=== PATIENT | female | born 1945 | race Caucasian/White ===

== ENCOUNTER → 2016-08-23 20:18 | Outpatient (CLI) | payer MEDICARE | END | disposition home or self-care (01) | LOC: D.LABREF 20:18 | DX: R41.3 Other amnesia (principal) ==

== ENCOUNTER 2017-01-20 15:18 | Emergency (ER) | payer MEDICARE ==
[2017-01-20 16:44] LABS: BASOPHILS 0.4 % (0-2); EOSINOPHILS 0.2 % (0-7); HEMATOCRIT 37.3 % (36.0-48.0); IMMATURE GRANULOCYTES 0.4 % (0-5); LYMPHOCYTES 13.9 % (15-50); MCH 31.6 pg (26.0-34.0); MCHC 34.9 g/dL (31.0-37.0); MCV 90.8 fL (80.0-100.0); MEAN PLATELET VOLUME 9.5 fL (7.4-10.4); MONOCYTES 16.9 % (2-11); NEUTROPHILS 68.2 % (40-80); PLATELET COUNT 108 10x3/uL (130-400); RBC 4.11 10x6/uL (4.00-5.40); RDW 13.2 % (11.5-14.5); WBC 5.3 10x3/uL (4.8-10.8)
[2017-01-20 16:59] LABS: ALBUMIN 3.1 g/dL (3.4-5.0); ANION GAP 8.6 mmol/L (8-16); CALCIUM 8.4 mg/dL (8.5-10.1); CARBON DIOXIDE 30.8 mmol/L (21.0-32.0); CREATININE - SERUM 0.9 mg/dL (0.6-1.3); POTASSIUM - SERUM 3.4 mmol/L (3.5-5.1); PROTEIN - SERUM 7.2 g/dL (6.4-8.2)
[2017-01-20 18:05] LABS: APPEARANCE CLEAR (CLEAR); BACTERIA FEW /hpf (NONE SEEN); BILIRUBIN NEGATIVE (NEGATIVE); COLOR YELLOW (YELLOW); EPITHELIAL CELLS 0-5 /hpf (0-5); GLUCOSE NEGATIVE (NEGATIVE); KETONE NEGATIVE (NEGATIVE); LEUKOCYTE ESTERASE TRACE (NEGATIVE); NITRITE NEGATIVE (NEGATIVE); PROTEIN NEGATIVE (NEGATIVE); RED CELLS - URINE 0-5 /hpf (0-5); UROBILINOGEN NORMAL (NORMAL); WHITE CELLS - URINE 0-5 /hpf (0-5)
[2017-01-21] MEDS ORDERED: INDERAL 40 MG T40 MG PO (05:55)
[2017-01-21] MEDS ORDERED: LIPITOR10 MG PO (05:56)
[2017-01-21] MEDS ORDERED: HYDROCHLOROTH12.5 M1 PO (05:56)
[2017-01-21] MEDS ORDERED: OMEPRAZOLE20 M1 PO (05:57)
[2017-01-21 12:18] VITALS: BMI 25.9
== END 2017-01-20 20:50 | disposition home or self-care (01) ==
LOC: D.ER 15:18
PROVIDERS: Family Medicine
DX: J01.90 Acute sinusitis, unspecified (principal); I10 Essential (primary) hypertension

== ENCOUNTER 2017-01-21 03:42 | Inpatient (IN) | payer MEDICARE ==
[~2017-01-21] VITALS: Ht 167.6 cm; Wt 74.7 kg
--- NOTE | ~2017-01-21 | EC ---
PATIENT:MOHINI AUGUSTIN DATE OF SERVICE: 01/21/17 SEX: F MEDICAL RECORD: [id number] DATE OF : 41 LOCATION:D.M2 D.211 AGE OF PATIENT: 71 ADMISSION DATE: 01/21/17 REFERRING PHYSICIAN: INTERPRETING PHYSICIAN: DAVID CARPENTER MD ECHOCARDIOGRAM REPORT ECHO CHARGES 4 ECHO COMPLETE CLINICAL DIAGNOSIS: CARDIOMEGALLY ECHOCARDIOGRAPHIC MEASUREMENTS (adult normal given) AC root (d.<3.7cm) 24 cm LV Septum d (<1.2 cm> 1.2 cm Valve Excursion 1.1 cm LV Septum (systole) 1.7 cm Left Atria (s.<4.0cm> 3.7 cm LVPW d(<1.2cm) 1.4 cm RV (d.<2.3cm) 3.1 cm LVPW (sytole) 1.8 cm LV diastole(<5.6CM) 3.8 cm MV E-F(>70mm/sec) cm LV systole 2.1 cm LVOT Diameter 1.7 cm MV exc.(>10mm) 1.5 cm Est.ejection fraction (50-75%) % Pericardial Effusion N DOPPLER: LVIT cm/sec A 121 cm/sec E 83 cm/sec LA cm/sec RVSP 28 mmHg LVOT 121 cm/sec AOP1/2T m/s Asc. Ao 159 cm/sec RVOT 105 cm/sec RA cm/sec PA 133 cm/sec AV Gradient Peak 10.06mmHg AV Mean 5.09 mmHg AV Area 1.7 cm MV Gradient Peak 7.26 mmHg MV Mean 3.0 mmHg MV Area cm COMMENTS: Deployment Specialist: Alexander GILL Mobile Application Tester: 2 Dr. Silver TAPE# PACS DATE OF SERVICE: 01/26/2017 FINDINGS: 1. Left ventricular chamber size is within normal limits. Left ventricular systolic function is normal. Overall ejection fraction estimated at 65%. 2. Left atrium, right atrium, and right ventricular chamber sizes are within normal limits. 3. Valvular structures have normal structure and motion. 4. Doppler interrogation reveals mild mitral regurgitation, mild tricuspid regurgitation, no other valvular insufficiency or stenosis and pulmonary ECHOCARDIOGRAM REPORT [id number] MOHINI AUGUSTIN systolic pressure is estimated 28 mmHg. 5. No evidence of pericardial effusion or left ventricular thrombus. TRANSINT:[id number] Voice Confirmation ID: [id number] DOCUMENT ID: [id number] DAVID CARPENTER MD CC: [id number] DICTATION DATE: 01/27/17 1353 RN INVASIVE: 01/27/17 1439 ADM IN [place] [id number] [place] [address]
--- NOTE | ~2017-01-21 | CN ---
PATIENT NAME:MOHINI HARRIS MEDICAL RECORD: [id number] : 41 LOCATION:[facility] D.2112 ADMIT DATE: 01/21/17 ACCOUNT: [id number] CONSULTING PHYSICIAN: PETAR CALIX MD REFERRING PHYSICIAN: CR RENO DO DATE OF CONSULTATION: 01/25/[address] Cr Reno. REASON FOR CONSULTATION: Sinusitis. HISTORY OF PRESENT ILLNESS: Ms. Harris is a 71-year-old female. She is admitted to the hospital several days now with fever and altered mental status. Last week, a CT was obtained, which showed some sinusitis and I was called to evaluate that. PHYSICAL EXAMINATION: GENERAL: She is healthy. She is alert, sitting up, eating, talking, and apparently has improved a lot in the past few days. EARS: Canals and TMs are normal. No middle ear effusion. EYES: Sclerae and conjunctivae are normal. No inflammation. NOSE: I see really well, although nasal mucosa looks perfectly normal inferior meatus, middle meatus, nasal vault, nasopharynx, the patient on the right side where the middle maxillary sinus is infected. There is no drainage at all. ORAL CAVITY AND OROPHARYNX: Normal with no postnasal drainage. NECK: No masses, no adenopathy. NEUROLOGIC: Cranial nerves are normal. DIAGNOSTIC DATA: CT showed opacification of the right maxillary, right sphenoid sinus, and some of the posterior ethmoid sinuses on the left side. IMPRESSION: She does have some opacification in the sinuses from her CT last week. Apparently, she has some pulmonary issues that may be a source of the fever as well. I talked to Dr. Toro. There is no drainage in the nose to obtain culture to help with the treatment, but I was willing to take her to the OR, open up the sinuses, and get cultures, drain everything out, but Dr. Toro felt like fevers are going away, she was getting a lot better, responding to treatment, and that may not be necessary, but we can consider that later if for some reason she is not doing well, sounds like her and her both got sick a few months ago and she just has not completely gone over it. I would be willing to see her as an outpatient or again during this admission if she is not making progress and she needs to go to the OR for sinus surgery. TRANSINT:[id number] Voice Confirmation ID: [id number] DOCUMENT ID: [id number] PETAR CALIX MD CC: [id number] DICTATION DATE: 01/27/17 1250 SPONGE CLIPPER: 01/27/17 1424 ADM IN [place] [id number] [place] [address]
--- NOTE | ~2017-01-21 | CN ---
PATIENT NAME:MOHINI HARRIS MEDICAL RECORD: [id number] : 41 LOCATION:. D.2112 ADMIT DATE: 01/21/17 ACCOUNT: [id number] CONSULTING PHYSICIAN: DACIA ESTEVES MD REFERRING PHYSICIAN: CR RENO DO DATE OF CONSULTATION: 01/25/2017 CONSULT REQUESTING PHYSICIAN: Michelle Roe MD REASON FOR CONSULTATION: Granulomatous disease and febrile illness. HISTORY OF PRESENT ILLNESS: Ms. Harris is a 71-year-old female who is a poor historian. The patient was admitted with mental status changes, fever, and hyponatremia. Now, she is more awake and alert. According to the , they both have bronchitis and respiratory tract infection. He got better, but her cough persisted since then. Now, for the last few days, she has fever. There are no night sweats. There is no weight loss. The patient was brought into the ER and evaluation found out she was hyponatremic. She had a CT scan of the chest which showed granulomatous disease. REVIEW OF SYSTEMS: As in history of present illness. PAST MEDICAL HISTORY: 1. History of childhood asthma. 2. Diabetes mellitus. 3. Hypertension. 4. Generalized weakness. 5. Gastroesophageal reflux disease. 6. History of diarrhea. 7. She also has Crohn disease. PAST SURGICAL HISTORY: 1. Colon resection for Crohn disease. 2. Surgery for carpal tunnel syndrome. 3. Neck surgery. 4. Cataract surgery. ALLERGIES: There are no known drug allergies. PRESENT MEDICATIONS: She is on Rocephin IV and Xopenex nebulizer. Her other medications are reviewed. PERSONAL AND SOCIAL HISTORY: The patient is an ex-smoker. She is nondrinker. FAMILY HISTORY: Noncontributory. PHYSICAL EXAMINATION: GENERAL: Now, the patient is sitting in bed. She is not in acute distress. VITAL SIGNS: The blood pressure is 139/53, pulse is 76, respirations are 18, temperature 98.1, and SpO2 is 95% on room air. HEENT: Conjunctivae are pink. Sclerae are nonicteric. NECK: Neck is supple. No JVD. CHEST: The chest excursion is minimal on both sides with bilateral crackles. No wheezing. HEART: Rhythm regular. Normal sounds. No murmur. CONSULT REPORT [id number] MOHINI HARRIS ABDOMEN: Abdomen is soft. Bowel sounds present. No hepatosplenomegaly. RECTAL: Deferred. EXTREMITIES: No cyanosis. No clubbing. No pedal edema. SKIN: The skin is warm. Normal turgor. CENTRAL NERVOUS SYSTEM: The patient is awake and alert. There are no obvious cranial nerve abnormalities. The gait was not tested. IMAGING DATA: CT scan of the chest; there is bilateral granulomatous disease. There is some noncalcified nodule in the lingula. Also, she has bilateral calcified granuloma in the hilar region. There is cardiomegaly. The liver looks cirrhotic and there is ascites and splenomegaly. LABORATORY DATA: CBC; WBC was 4.4, hemoglobin 12.9, hematocrit 36.5, and platelet count 88. Chemistry; sodium 131, potassium 3.8, BUN is 8, and creatinine 0.7. IMPRESSION: 1. Febrile illness. The etiology is not clear. 2. Granulomatous disease. Rule out fungal processes. Rule out mycobacterial infection, possible sarcoidosis. I would doubt metastatic process. 3. Chronic cough, most likely secondary to asthmatic bronchitis. 4. Acemi-kq-lzdblnd sinusitis. 5. History of asthma. 6. Hyponatremia. RECOMMENDATION: Start on ipratropium nebulizer. Continue the Xopenex nebulizer. Start on Brovana and budesonide nebulizer. We will proceed with fiberoptic bronchoscopy in the morning. The CT scan was discussed with the patient's . Continue the present antibiotic per Dr. Roe. Dr. Roe, thank you for involving me in the care of Ms. Harris. TRANSINT:[id number] Voice Confirmation ID: [id number] DOCUMENT ID: [id number] DACIA ESTEVES MD CC: CR RENO DO and Ania ROE [id number] DICTATION DATE: 01/25/17 1436 PUBLIC SAFETY POLICE: 01/25/17 1742 ADM IN [facility] [address] [place] [address]
[2017-01-21 04:47] LABS: BASOPHILS 0.3 % (0-2); EOSINOPHILS 0 % (0-7); HEMATOCRIT 34.5 % (36.0-48.0); HEMOGLOBIN 12.3 g/dL (12-16); IMMATURE GRANULOCYTES 0.3 % (0-5); LYMPHOCYTES 11.6 % (15-50); MCH 31.6 pg (26.0-34.0); MCHC 35.7 g/dL (31.0-37.0); MEAN PLATELET VOLUME 9.4 fL (7.4-10.4); MONOCYTES 17.7 % (2-11); NEUTROPHILS 70.1 % (40-80); PLATELET COUNT 91 10x3/uL (130-400); RBC 3.89 10x6/uL (4.00-5.40); RDW 12.9 % (11.5-14.5); WBC 6.3 10x3/uL (4.8-10.8)
[2017-01-21 04:57] LABS: MCV 88.7 fL (80.0-100.0)
[2017-01-21 04:59] LABS: ANION GAP 11.6 mmol/L (8-16); CALCIUM 7.3 mg/dL (8.5-10.1); CARBON DIOXIDE 23.8 mmol/L (21.0-32.0); CREATININE - SERUM 0.8 mg/dL (0.6-1.3); POTASSIUM - SERUM 3.4 mmol/L (3.5-5.1)
[2017-01-21 05:51] LABS: PLATELET ESTIMATE DECREASED; PLATELET MORPHOLOGY NORMAL PLT MORPH
[2017-01-21] MEDS ORDERED: INDERAL 40 MG T40 MG PO (05:55)
[2017-01-21] MEDS ORDERED: HYDROCHLOROTH12.5 M1 PO (05:56)
[2017-01-21] MEDS ORDERED: LIPITOR10 MG PO (05:56)
[2017-01-21] MEDS ORDERED: OMEPRAZOLE20 M1 PO (05:57)
--- NOTE | 2017-01-21 06:00 | NUR ---
RECEIVED FROM ER VIA STRETCHER. ALERT/ORIENTED X 2 TO NAME AND HOSP. FAMILY WITH HER. IV IN L AC WITH NS INFUSING AT 70ML/AR STARTED IN ER. REQUESTED TO BATHROOM TO VOID. ORIENTED TO ROOM AND CALL LIGHT.
[2017-01-21 06:08] VITALS: BP 146/49; BMI 26.1
--- NOTE | 2017-01-21 07:20 | NUR ---
RECIEVED REPORT ON PATIENT, PATIENT IS SLEEPING AT THIS TIME. NAD NOTED AT THIS TIME. IS AT BEDSIDE. BED IS LOW AND LOCKED AT THIS TIME. CALL LIGHT IN REACH. PATIENT HAS A L AC IV WITH NS INFUSING AT 75ML/HR. DENIES ANY NEEDS. CPOC
[2017-01-21 07:51] VITALS: BP 147/47
--- NOTE | 2017-01-21 09:30 | NUR ---
ASSESSMENT DONE. AT BEDSIDE. PATIENT ALERT AND ORIENTED. DENIES ANY NEEDS OR COMPLAINTS AT THIS TIME. CALL LIGHT IN REACH. CPOC
--- NOTE | 2017-01-21 11:00 | NUR ---
SCDS PUT ON PATIENT, AND TOLERATING. CPOC
[2017-01-21 11:34] VITALS: BP 135/49
[2017-01-21 12:18] VITALS: Ht 167.6 cm; Wt 74.7 kg
--- NOTE | 2017-01-21 13:00 | NUR ---
PATIENT EATING LUNCH AT THIS TIME. DENIES ANY NEEDS. FAMILY AT BEDSIDE. CPOC
--- NOTE | 2017-01-21 15:00 | NUR ---
SPOKE WITH DR MAYNARD AND GOT PATIENT HOME MEDICATIONS RESTARTED. WILL GIVE, CPOC
[2017-01-21 16:00] VITALS: BP 139/47
--- NOTE | 2017-01-21 17:45 | NUR ---
PATIENT EATING DINNER AT THIS TIME, FAMILY AT BEDSIDE. PATIENT DENIES ANY NEEDS AT THIS TIME. CPOC
[2017-01-21 20:00] VITALS: BP 150/61
[2017-01-22] VITALS: BP 160/45
--- NOTE | 2017-01-22 01:12 | NUR ---
ASSESSED AT THE THE BEGINNING OF THE SHIFT. PT IS ALERT AND ORIENTED, ABLE TO VERBALIZE NEEDS. HER IS WITH HER AND SHE WAS GIVEN GATORADE FOR DRINKING DUE TO HER SODIUM LEVEL. SHE IS UP WITH ASSIST AND HAS HAD NO COMPLAINTS. THE BED IS LOW, RAISL UP X'S 2 WITH THE CALL LIGHT AT HAND.
[2017-01-22 04:00] VITALS: BP 165/57
[2017-01-22 04:48] LABS: BASOPHILS 0 % (0-2); EOSINOPHILS 0.1 % (0-7); HEMATOCRIT 35.6 % (36.0-48.0); HEMOGLOBIN 12.5 g/dL (12-16); IMMATURE GRANULOCYTES 0.3 % (0-5); LYMPHOCYTES 6.1 % (15-50); MCH 31.2 pg (26.0-34.0); MCHC 35.1 g/dL (31.0-37.0); MCV 88.8 fL (80.0-100.0); MEAN PLATELET VOLUME 9.6 fL (7.4-10.4); MONOCYTES 11.2 % (2-11); NEUTROPHILS 82.3 % (40-80); PLATELET COUNT 107 10x3/uL (130-400); RBC 4.01 10x6/uL (4.00-5.40); RDW 12.9 % (11.5-14.5)
[2017-01-22 04:51] LABS: WBC 9.8 10x3/uL (4.8-10.8)
[2017-01-22 05:07] LABS: CALC OSMOLALITY 265 mosm/kg (275-300); CALCIUM 7.9 mg/dL (8.5-10.1); CARBON DIOXIDE 25.5 mmol/L (21.0-32.0); CHLORIDE - SERUM 99 mmol/L (98-107); CREATININE - SERUM 0.7 mg/dL (0.6-1.3); GLUCOSE 108 mg/dL (74-106); MAGNESIUM - SERUM 1.6 mg/dL (1.8-2.4); PHOSPHOROUS 2.6 mg/dL (2.5-4.9); POTASSIUM - SERUM 3.2 mmol/L (3.5-5.1); SODIUM 133 mmol/L (136-145); UREA NITROGEN 9 mg/dL (7-18); eGFR NON AFRICAN AMERICAN 87 mL/min (90-120)
--- NOTE | 2017-01-22 07:15 | NUR ---
RECIEVED REPORT ON PATIENT, PATIENT IS ALERT AND ORIENTED AT THIS TIME. HAS A L AC IV THAT IS INFUSING WITH NS AT 75ML/HR. PATIENT DENIES ANY NEEDS OR PAIN AT THIS TIME. BED LOW AND LOCKED. AT BEDSIDE. CPOC
[2017-01-22 08:00] VITALS: BP 154/51
--- NOTE | 2017-01-22 09:00 | NUR ---
MORNING MEDICATIONS GIVEN, ASSESSMENT DONE. PATIENT HAD AUDIBLE WHEEZES AT THIS TIME. O2 SAT 97% ON ROOM AIR. EXPIRATORY WHEEZES HEARD IN UPPER LOBES, CLEAR IN LOWER LOBES. WILL CONT TO MONITOR PATIENT. CPOC
--- NOTE | 2017-01-22 10:50 | NUR ---
CALLED TO PATIENT ROOM, PATIENT THROWING UP, FLUSHED, AND WARM TO TOUCH. CLEANED PATIENT UP. CHECKED PATIENT TEMP. 102.8 ORAL. WILL GIVE TYLENOL. COLD RAGS APPLIED. PATIENT IS ALSO WHEEZING WORSE. O2 SAT 98%. PAGED DR MAYNARD. CPOC
--- NOTE | 2017-01-22 11:10 | NUR ---
SPOKE WITH DR MAYNARD. ORDERS GIVEN VIA TELEPHONE. STATED HE WOULD BE HERE THIS AFTERNOON. CPOC
[2017-01-22 12:00] VITALS: BP 163/49
--- NOTE | 2017-01-22 12:00 | NUR ---
PATIENT TEMP BACK DOWN TO 98.2. FAMILY AT BEDSIDE. PATIENT DENIES ANY NEEDS OR PAIN. CPOC
--- NOTE | 2017-01-22 13:15 | NUR ---
MAG AND POTASSIUM GIVEN PER PROTOCOL. CPOC
--- NOTE | 2017-01-22 13:38 | HP ---
PATIENT: MOHINI AUGUSTIN MEDICAL RECORD: [id number] ACCOUNT: [id number] LOCATION:[address] : 41 ADMISSION DATE: 01/21/17 HISTORY AND PHYSICAL EXAMINATION HISTORY OF PRESENT ILLNESS: A 71-year-old female presented to the Emergency Room with altered mental status. PAST MEDICAL HISTORY: Significant for hypertension. She also has a history of hyponatremia. She has had been treated as an outpatient for sinus infection with multiple antibiotics. She was seen in the ER yesterday, put on steroids and antibiotics, symptoms worsened and returned to the ER. CT showed extensive sinusitis and lab work revealed low sodium. The patient was incontinent of urine, unable to walk; no prior history of this. Again, she does have a prior history of hyponatremia. REVIEW OF SYSTEMS: GENERAL: No acute change in weight. HEENT: Sinus pain and pressure, episodic fever and chills over the past several days. No visual changes, tinnitus, epistaxis or dysphagia. CARDIOVASCULAR: Denies chest pain or palpitations. PULMONARY: Denies hemoptysis. Denies night sweats. GASTROINTESTINAL: Denies hematemesis, hematochezia or melena. GENITOURINARY: Recent episode of urinary incontinence. MUSCULOSKELETAL AND NEUROLOGICAL: Unsteady gait. PHYSICAL EXAMINATION: VITAL SIGNS: Temp 98.2, blood pressure is 135/49, heart rate is 71, respirations 18 and O2 sats 97% on room air. Temp on admission to the ER was 101.4. GENERAL: Alert and oriented. The patient significantly improved since receiving IV normal saline. HEENT: Head is normocephalic, atraumatic. Eyes: Pupils are equally round and reactive to light and accommodation. Extraocular muscles intact. Conjunctiva was not injected. Ears: Canals patent. Nose: Nares patent. Throat: No erythema, no exudates. Does have sinus tenderness. NECK: Supple. No lymphadenopathy. HEART: Regular rate and rhythm. No S3 or S4, no rub. LUNGS: Clear to auscultation bilaterally. Breathing is nonlabored. ABDOMEN: Soft, nontender. Bowel sounds all 4 quadrants. EXTREMITIES: Present times 4, no edema. NEUROLOGIC: No present focal deficits. LABORATORY DATA: CBC: White count 6.3, hemoglobin 12.3, hematocrit 34.5 and platelets 91. Chemistry showed sodium of 125, potassium 3.4, chloride 93, bicarb 23.8, creatinine 0.8. Urine osmolarity is low at 251, calcium 7.3. Blood cultures, pending. Urine culture, pending. ASSESSMENT AND PLAN: 1. Hyponatremia with acute mental status change, replaced with normal saline. We will restrict free water. Encourage Gatorade, salt. 2. Sinusitis, antibiotics. We will monitor electrolytes. 3. Monitor gait. TRANSINT:[id number] Voice Confirmation ID: [id number] DOCUMENT ID: [id number] HISTORY AND PHYSICAL [id number] MOHINI AUGUSTIN, STACIE ALEMAN at 1338 CC: [id number] DICTATION DATE: 01/21/17 1252 AER[address] PILOT: 01/21/[address] [facility] [address] [place] [address]
--- NOTE | 2017-01-22 15:15 | NUR ---
PATIENT GONE FOR MRI
--- NOTE | 2017-01-22 15:41 | NUR ---
PATIENT BACK FROM MRI
[2017-01-22 16:00] VITALS: BP 174/60
--- NOTE | 2017-01-22 17:30 | NUR ---
PATIENT SITTING UP IN BED, EATING DINNER, FAMILY AT BEDSIDE. DENIES ANY NEEDS. CPOC
[2017-01-22 20:00] VITALS: BP 188/60
--- NOTE | 2017-01-22 22:02 | NUR ---
BEDTIME MEDS GIVEN. TYLENOL FOR TEMP 102. PT NOW RESTING IN BED. BOTH AND DAUGHTER IN ROOM. IVF CAPPED FOR THE TIME BEING. WILL MONITOR.
[2017-01-23] VITALS: BP 158/57
--- NOTE | 2017-01-23 02:36 | NUR ---
PT RESTING IN BED WITH NO DISTRESS. CALL LIGHT IN REACH. MONITOR AND CPOC.
[2017-01-23 03:50] LABS: BASOPHILS 0.7 % (0-2); EOSINOPHILS 0 % (0-7); HEMATOCRIT 36.5 % (36.0-48.0); HEMOGLOBIN 12.9 g/dL (12-16); IMMATURE GRANULOCYTES 0.5 % (0-5); LYMPHOCYTES 17.6 % (15-50); MCH 31.5 pg (26.0-34.0); MCHC 35.3 g/dL (31.0-37.0); MCV 89.2 fL (80.0-100.0); MONOCYTES 15.3 % (2-11); NEUTROPHILS 65.9 % (40-80); PLATELET COUNT 88 10x3/uL (130-400); RBC 4.09 10x6/uL (4.00-5.40); RDW 13.3 % (11.5-14.5)
[2017-01-23 03:54] LABS: WBC 4.4 10x3/uL (4.8-10.8)
[2017-01-23 04:00] VITALS: BP 188/61
[2017-01-23 04:24] LABS: C-REACTIVE PROTEIN 2.4 mg/dL (0.0-0.9); CALC OSMOLALITY 258 mosm/kg (275-300); CALCIUM 7.7 mg/dL (8.5-10.1); CARBON DIOXIDE 28.3 mmol/L (21.0-32.0); CHLORIDE - SERUM 94 mmol/L (98-107); CKMB 0.8 U/L (0.0-3.6); GLUCOSE 101 mg/dL (74-106); MAGNESIUM - SERUM 1.4 mg/dL (1.8-2.4); PHOSPHOROUS 2.8 mg/dL (2.5-4.9); POTASSIUM - SERUM 3.1 mmol/L (3.5-5.1); SODIUM 130 mmol/L (136-145); TROPONIN-I 0.052 ng/mL (0.000-0.060); UREA NITROGEN 8 mg/dL (7-18); eGFR NON AFRICAN AMERICAN 65 mL/min (90-120)
[2017-01-23 04:33] LABS: CREATININE - SERUM 0.9 mg/dL (0.6-1.3)
--- NOTE | 2017-01-23 07:15 | NUR ---
RECIEVED REPORT ON PATIENT, PATIENT IS ALERT AND ORIENTED AT THIS TIME. PATIENT HAS A L AC IV THAT IS INFUSING WITH NS AT 75ML/HR. DR RENO AT BEDSIDE. PATIENT FAMILY AT BEDSIDE. PATIENT DENIES ANY NEEDS OR COMPLAINTS AT THIS TIME. WILL CONT TO MONITOR PATIENT. CPOC
[2017-01-23 08:00] VITALS: BP 174/60
--- NOTE | 2017-01-23 10:30 | NUR ---
PATIENT ON ELCTROLYTE PROTOCOL FOLLOWED MEDS GIVEN PER PROTOCOL. CPOC
--- NOTE | 2017-01-23 12:41 | NUR ---
PATIENT SITTING UP EATING LUNCH AT THIS TIME. PATIENT DENIES ANY NEEDS. WILL CONT TO MONITOR. CPOC
--- NOTE | 2017-01-23 14:00 | NUR ---
PATIENT IV IN L AC INFILTRATED. DC WITH CATH TIP INTACT. 22 G STARTED TO R FA, 1 ATTEMPT. IV INFUSING WITH NS 20MEQ OF KCL AT 100ML/HR
[2017-01-23 16:00] VITALS: BP 176/62
--- NOTE | 2017-01-23 16:00 | NUR ---
PATIENT IS WHEEZING AT THIS TIME, O2 SAT 95% INFORMED REPIRATORY. CPOC
--- NOTE | 2017-01-23 17:16 | NUR ---
PATIENT SITTING UP IN CHAIR, EATING DINNER. DENIES ANY NEEDS AT THIS TIME. CPOC
[2017-01-23 19:00] VITALS: BP 158/56
--- NOTE | 2017-01-23 19:42 | NUR ---
PT RIGHT FOREARM IV LEAKING. CHANGED DRSG AND FIXED LEAK. PT IV NOW PATENT. DRSG CDI. PT DENEIS ANY NEEDS. NO S/S OF DISTRESS. FAMILY IN ROOM. BED LOW AND CALL LIGHT WITHIN REACH WILL CPOC
[2017-01-23 20:34] LABS: APPEARANCE CLEAR (CLEAR); BILIRUBIN NEGATIVE (NEGATIVE); COLOR YELLOW (YELLOW); GLUCOSE NEGATIVE (NEGATIVE); KETONE NEGATIVE (NEGATIVE); LEUKOCYTE ESTERASE NEGATIVE (NEGATIVE); NITRITE NEGATIVE (NEGATIVE); PROTEIN NEGATIVE (NEGATIVE); UROBILINOGEN NORMAL (NORMAL)
[2017-01-23 20:35] LABS: RED CELLS - URINE 0-5 /hpf (0-5); WHITE CELLS - URINE OCC /hpf (0-5)
--- NOTE | 2017-01-23 22:00 | NUR ---
PT HAS A FEVER OF 103 ORAL. WILL GIVE TYLENOL ORDERED. WILL RECHECK AND PUT NOTE. PT DENIES ANY NEEDS. WILL CPOC
--- NOTE | 2017-01-23 22:24 | NUR ---
IN ROOM. PT UP TO RESTROOM WITH ASSISTANCE. PT DENIES ANY NEEDS. NO S/S OF DISTRESS. WILL CPOC
--- NOTE | 2017-01-23 22:38 | NUR ---
PT TEMP NOW 100.4. PT WANTING TO SLEEP. BED LOW AND CALL LIGHT WITHIN REACH. BED ALARM ON AND IN ROOM. PT DENIES ANY NEEDS. NO S/S OF DISTRESS. WILL CPOC
[2017-01-24] VITALS: BP 123/55
[2017-01-24 04:00] VITALS: BP 198/81
[2017-01-24 05:04] LABS: BASOPHILS 0.7 % (0-2); EOSINOPHILS 0.2 % (0-7); HEMATOCRIT 39.5 % (36.0-48.0); HEMOGLOBIN 13.9 g/dL (12-16); IMMATURE GRANULOCYTES 0.7 % (0-5); LYMPHOCYTES 21.3 % (15-50); MCHC 35.2 g/dL (31.0-37.0); MCV 88.2 fL (80.0-100.0); MEAN PLATELET VOLUME 11.2 fL (7.4-10.4); MONOCYTES 9.4 % (2-11); NEUTROPHILS 67.7 % (40-80); PLATELET COUNT 72 10x3/uL (130-400); RBC 4.48 10x6/uL (4.00-5.40); RDW 13.4 % (11.5-14.5); WBC 5.9 10x3/uL (4.8-10.8)
--- NOTE | 2017-01-24 05:13 | NUR ---
PT IS RESTLESS. C/O DYSPNEA. RUBBING HER STOMACH SO ZOFRAN PRN IS GIVEN ORDERED. PT HAS IN ROOM. HE ASSIST HER TO RESTROOM. WILL CONTINUE TO MONITOR DYSPNEA AND RESTLESSNESS. PT DENIES ANY NEEDS. NO S/S OF DISTRESS. WILL CPOC
[2017-01-24 05:50] LABS: ALBUMIN 2.9 g/dL (3.4-5.0); ALKALINE PHOSPHATASE 103 U/L (46-116); ALT (SGPT) 40 U/L (10-68); BILIRUBIN - TOTAL 1.29 mg/dL (0.2-1.3); CALC OSMOLALITY 261 mosm/kg (275-300); CALCIUM 7.7 mg/dL (8.5-10.1); CHLORIDE - SERUM 97 mmol/L (98-107); CREATININE - SERUM 0.7 mg/dL (0.6-1.3); GLUCOSE 87 mg/dL (74-106); POTASSIUM - SERUM 3.8 mmol/L (3.5-5.1); PROTEIN - SERUM 7.1 g/dL (6.4-8.2); SODIUM 132 mmol/L (136-145); THYROID STIMULATING HORMONE 0.82 uIU/mL (0.36-3.74); UREA NITROGEN 6 mg/dL (7-18); eGFR NON AFRICAN AMERICAN 87 mL/min (90-120)
--- NOTE | 2017-01-24 07:50 | NUR ---
PT TO CHEST XRAY VIA WHEELCHAIR.
--- NOTE | 2017-01-24 07:55 | NUR ---
0715- AM ROUNDING- RECIEVED REPORT FROM SUPERVISOR GRAIN [employer] YEAST [employer]ANTS NURSE SHARLENE. PT IS CURRENTLY SITTINTG IN CHAIR AT BEDSIDE. IS AT BEDSIDE. ON 02 AT 1L VIA NC. NO MONITOR (ZOFIA IN TELEMETRY IS AWARE OF NEEDING HEART MONITOR AND STATES SHE WILL GET PT ONE ONCE HEART MONITOR IS AVAILABLE DUE TO ONE BEING LEFT AND SAVING FOR PCU BED). IV SEEN TO RIGHT FOREARM WITH NS WITH 20K+ RUNNING AT 100CC. NO NEED AT CURRENT TIME. WILL CONTINUE TO MONITOR AND CONTINUE WITH PLAN OF CARE.
[2017-01-24 08:00] VITALS: BP 147/61
--- NOTE | 2017-01-24 08:03 | NUR ---
PT BACK FROM [facility] VIA WHEELCHAIR.
--- NOTE | 2017-01-24 09:05 | NUR ---
Patient Name: MOHINI AUGUSTIN Admission Status: ER Accout number: [id number] Admission Date: 01-21-2017 : 1945 Admission Diagnosis: Attending: Nixon Reno Current LOS: 3 Anticipated DC Date: Planned Disposition: Home Primary Insurance: [facility] LATE ENTRY FROM 01-23-17, 1600 HOURS. Discharge Planning Comments: * Is the patient Alert and Oriented? Yes 0 * How many steps to enter\exit or inside your home? 3 0 * PCP DR. RENO 0 * Pharmacy [facility] 0 * Preadmission Environment Home with Family 0 * ADLs Independent 0 * Equipment None 0 * Other Equipment NO MEDICAL EQUIPMENT PROVIDER PREFERENCE 0 * List name and contact numbers for known caregivers / representatives who currently or will assist patient after discharge: TONY AUGUSTIN, SPOUSE, 0 * Community resources currently utilized None 0 * Please name any agencies selected above. NONE 0 * Additional services required to return to the preadmission environment? No 0 * Can the patient safely return to the preadmission environment? Yes 0 * Has this patient been hospitalized within the prior 30 days at any hospital? No 0 CM RECEIVED ORDER FOR INPATIENT REHAB PRESCREENING. CM MET WITH PT AND SPOUSE IN ROOM TO DISCUSS DISCHARGE PLANNING AND NEEDS. PT REPORTS LIVING AT HOME INDEPENDENTLY WITH HER SPOUSE. PT HAS NO MEDICAL EQUIPMENT AND NO OUTSIDE SERVICES ASSISTING IN THE HOME. PT'S SPOUSE REPORTS IF PT NEEDS HELP, SHE HAS HE AND THEIR ADULT DAUGHTER TO ASSIST AT HOME. CM DISCUSSED AVAILABILITY OF HOME HEALTH, REHAB SERVICES AND MEDICAL EQUIPMENT. PT 'S SPOUSE DENIES REHAB NEED AT THIS TIME, HE FEELS THAT PT WILL BE FINE TO GO HOME; PT'S SPOUSE WOULD CONSIDER INPATIENT REHAB AT [facility] ONLY IF PT WAS NOT ABLE TO GO HOME; PT'S SPOUSE WOULD CONSIDER HOME HEALTH IF NEEDED WHEN PT GOES HOME, BUT SPOUSE THINKS THAT ONCE THE INFECTION IS CLEARED, PT WILL BE OK TO DISCHARGE HOME WITH HIS ASSISTANCE. PT'S SPOUSE DENIES DISCHARGE NEEDS AT THIS TIME, REPORTS HE WILL PICK PT UP FOR DISCHARGE HOME. PT'S SPOUSE PLANS TO TAKE PT HOME AT DISCHARGE, DENIES NEEDS AT THIS TIME; PT'S SPOUSE DOES NOT THINK PT WILL REQUIRE INPATIENT REHAB OR HOME HEALTH SERVICES.. Supply Teacher: Geremias Diego
[2017-01-24 11:56] VITALS: BP 102/42
[2017-01-24 16:00] VITALS: BP 125/47
--- NOTE | 2017-01-24 18:38 | NUR ---
PT IS CURRENTLY SITTING IN CHAIR AT BEDSIDE. FAMILY MEMBERS ARE AT BEDSIDE. DR. ROE IS IN ROOM NOW WITH PT. NO NEED AT THIS CURRENT TIME. WILL CONTINUE TO MONITOR.
[2017-01-24 20:00] VITALS: BP 129/66
--- NOTE | 2017-01-24 21:21 | NUR ---
PT C/O ACID REFLUX. PT STATES NO NEED TO CALL DOCTOR TONIGHT.. I WILL PASS IN REPORT FOR IN THE MORNING. PT STANDING INFRONT OF SINK. BRUSING TEETH AND CLEANING AREA. PT IS BALANCING WELL. PT DENIES ANY NEEDS. IN ROOM. IV INFUSING NS 20 MEQ KCL AT 100. SLIP FREE SOCKS ON. WILL CPOC
--- NOTE | 2017-01-24 22:20 | NUR ---
PT TEMP IS 100.2 AXILLARY. PT UP TO RESTROOM WITH ASSIST. DENIES ANY NEEDS. WILL CONTINUE TO MONITOR TEMP. NO S/S OF DISTRESS. WILL CPOC
--- NOTE | 2017-01-24 23:31 | NUR ---
PT TEMP IS 98.7 AXILLARY. PT UP TO RESTROOM AGAIN WITH LOOSE STOOL. PT DENIES ANY NEEDS.NO S/S OF DISTRESS. WILL CPOC
[2017-01-25] VITALS: BP 150/46
--- NOTE | 2017-01-25 03:49 | NUR ---
PT SITTING UP IN CHAIR. IN ROOM. PT LOOKING THROUGH PURSE FOR TUMS. PT DENIES ANY NEEDS. NO S/S OF DISTRESS. WILL CPOC
[2017-01-25 04:00] VITALS: BP 137/45
[2017-01-25 04:33] LABS: BASOPHILS 0.6 % (0-2); EOSINOPHILS 0.6 % (0-7); HEMATOCRIT 34.3 % (36.0-48.0); HEMOGLOBIN 12.6 g/dL (12-16); IMMATURE GRANULOCYTES 0.4 % (0-5); MCH 32.2 pg (26.0-34.0); MCHC 36.7 g/dL (31.0-37.0); MCV 87.7 fL (80.0-100.0); MONOCYTES 13.1 % (2-11); NEUTROPHILS 68.3 % (40-80); RBC 3.91 10x6/uL (4.00-5.40); RDW 13.7 % (11.5-14.5); WBC 5.3 10x3/uL (4.8-10.8)
[2017-01-25 04:45] LABS: PLATELET COUNT 92 10x3/uL (130-400)
[2017-01-25 05:28] LABS: ALBUMIN 2.3 g/dL (3.4-5.0); ALKALINE PHOSPHATASE 101 U/L (46-116); BILIRUBIN - TOTAL 0.84 mg/dL (0.2-1.3); C-REACTIVE PROTEIN 3.2 mg/dL (0.0-0.9); CALC OSMOLALITY 261 mosm/kg (275-300); CALCIUM 7.6 mg/dL (8.5-10.1); CARBON DIOXIDE 21.9 mmol/L (21.0-32.0); CHLORIDE - SERUM 101 mmol/L (98-107); CREATININE - SERUM 0.7 mg/dL (0.6-1.3); GLUCOSE 110 mg/dL (74-106); POTASSIUM - SERUM 3.8 mmol/L (3.5-5.1); PROTEIN - SERUM 6.2 g/dL (6.4-8.2); SODIUM 131 mmol/L (136-145); eGFR NON AFRICAN AMERICAN 87 mL/min (90-120)
[2017-01-25 05:45] LABS: ALT (SGPT) 40 U/L (10-68); UREA NITROGEN 8 mg/dL (7-18)
[2017-01-25 05:51] LABS: ERYTHROCYTE SEDIMENTATION RATE 9 mm/hr (0-30)
--- NOTE | 2017-01-25 06:42 | NUR ---
PT SITTING UP IN CHAIR, EYES CLOSED RESTING. IN BED RESTING. PT DENIES ANY NEEDS. NO S/S OF DISTESS. STATES SHE IS READY TO GO HOME. WILL CPOC
--- NOTE | 2017-01-25 08:39 | NUR ---
PER FLOWSHEET, PATIENT HAS HAD 2 LOOSE STOOLS THIS AM. I ASKED MARLIN ARROYO AND BLAYNE DON TO PLEASE COLLECT THIS ON NEXT STOOL.
[2017-01-25 09:19] VITALS: BP 139/52
--- NOTE | 2017-01-25 12:05 | NUR ---
0715- AM ROUNDING- RECEIVED REPORT FROM ELECTRICAL AUTOMATION ENGINEER NURSE SHARLENE. PT IS CURRNETLY SITTING UP IN CHAIR WITH EYES OPEN RESTING. IS AT BEDSIDE. ON ROOM AIR. ON MONITOR SHOWING SR, HR 74. IV SEEN TO RIGHT FOREARM WITH NS WITH 20K+ RUNNING AT 100CC. NO NEED AT THIS CURRENT TIME. WILL CONTINUE TO MONITOR AND CONTINUE WITH PLAN OF CARE.
[2017-01-25 12:09] VITALS: BP 139/53
[2017-01-25 14:54] VITALS: BP 161/61
[2017-01-25 15:53] LABS: BASOPHILS 0.8 % (0-2); EOSINOPHILS 0.6 % (0-7); HEMATOCRIT 36.1 % (36.0-48.0); HEMOGLOBIN 12.7 g/dL (12-16); IMMATURE GRANULOCYTES 0.3 % (0-5); LYMPHOCYTES 18.3 % (15-50); MCH 30.9 pg (26.0-34.0); MCHC 35.2 g/dL (31.0-37.0); MCV 87.8 fL (80.0-100.0); MEAN PLATELET VOLUME 10.6 fL (7.4-10.4); MONOCYTES 8.4 % (2-11); NEUTROPHILS 71.6 % (40-80); PLATELET COUNT 96 10x3/uL (130-400); RBC 4.11 10x6/uL (4.00-5.40); RDW 13.8 % (11.5-14.5); WBC 6.5 10x3/uL (4.8-10.8)
[2017-01-25 16:09] LABS: INR 1.16 (0.85-1.17); PROTIME 14.7 SECONDS (11.6-15.0)
[2017-01-25 16:10] LABS: APTT 38.1 SECONDS (22.8-39.4)
--- NOTE | 2017-01-25 17:06 | NUR ---
CONSENTS FOR PROCEDURE SIGNED BY PT AND PLACED IN CHART. PT INSTRUCTED TO NOT EAT OR DRINK ANYTHING AFTER MIDNIGHT TONIGHT. PT AGREES. NPO SIGN PLACED ON PTS DOOR. PT IS CURRENTLY SITTING UP IN CHAIR AT SIDE OF BED. IS AT BEDSIDE. PT DENIES ANY NEED AT THIS CURRENT TIME. WILL CONTINUE TO MONITOR AND CONTINUE WITH PLAN OF CARE.
--- NOTE | 2017-01-25 18:28 | NUR ---
PT IS CURRENTLY SITTING UP IN CHAIR AT BEDSIDE. IS AT BEDSIDE. PT DENIES ANY NEED AT THIS TIME. PT APPEARS WORRIED ABOUT PROCEDURE TOMORROW. CONSENTS ARE SIGNED AND IN CHART. PT IS AWARE TO BE NPO (NOTHING BY MOUTH) AFTER MIDNIGHT. WILL CONTINUE TO MONITOR.
[2017-01-25 19:00] VITALS: BP 116/55
--- NOTE | 2017-01-25 19:23 | NUR ---
PT SITTING IN CHAIR. NS WITH 20 MEQ OF KCL. TO RIGHT FOREARM. PT DENIES ANY NEEDS. NO S/S OF DISTRESS. AT BEDSIDE. WILL CPOC
--- NOTE | 2017-01-25 20:31 | NUR ---
PT SITTING IN CHAIR RECEIVING BREATHING TREATMENT. PT HAS NO S/S OF DISTRESS. NS WITH 20 MEQ KCL INFUSING AT 100 TO RIGHT FOREARM IV. IN ROOM. PT DENIES ANY NEEDS. NO S/S OF DISTRESS. WILL CPOC
[2017-01-26] VITALS (7 sets, daily range): BP systolic 117–147; BP diastolic 45–58
[2017-01-26 04:22] LABS: BASOPHILS 1.4 % (0-2); EOSINOPHILS 1.2 % (0-7); HEMATOCRIT 34.3 % (36.0-48.0); HEMOGLOBIN 12.2 g/dL (12-16); IMMATURE GRANULOCYTES 0.2 % (0-5); LYMPHOCYTES 31.1 % (15-50); MCH 31.1 pg (26.0-34.0); MCHC 35.6 g/dL (31.0-37.0); MCV 87.5 fL (80.0-100.0); MEAN PLATELET VOLUME 10.4 fL (7.4-10.4); NEUTROPHILS 52.1 % (40-80); PLATELET COUNT 110 10x3/uL (130-400); RBC 3.92 10x6/uL (4.00-5.40); WBC 5.8 10x3/uL (4.8-10.8)
[2017-01-26 04:43] LABS: ALBUMIN 2.3 g/dL (3.4-5.0); ALKALINE PHOSPHATASE 113 U/L (46-116); ALT (SGPT) 46 U/L (10-68); BILIRUBIN - TOTAL 1.17 mg/dL (0.2-1.3); CALC OSMOLALITY 260 mosm/kg (275-300); CALCIUM 7.8 mg/dL (8.5-10.1); CARBON DIOXIDE 24.2 mmol/L (21.0-32.0); CHLORIDE - SERUM 101 mmol/L (98-107); CREATININE - SERUM 0.6 mg/dL (0.6-1.3); GLUCOSE 85 mg/dL (74-106); POTASSIUM - SERUM 3.9 mmol/L (3.5-5.1); PROTEIN - SERUM 6.3 g/dL (6.4-8.2); SODIUM 132 mmol/L (136-145); eGFR NON AFRICAN AMERICAN > 90 mL/min (90-120)
[2017-01-26 04:46] LABS: UREA NITROGEN 4 mg/dL (7-18)
--- NOTE | 2017-01-26 07:15 | NUR ---
RECIEVED REPORT ON PATIENT, PATIENT IS ALERT AND ORIENTED AT THIS TIME. PATIENT HAS A R FA IV WITH NS 20MEQ OF KCL INFUSING AT 100ML/HR. PATIENT IS SR ON MONITOR WITH A RATE OF 86. PATIENT FAMILY IS AT BEDSIDE. PATIENT DENIES ANY NEEDS AT THIS TIME. WILL CONT TO MONITOR PATIENT. CPOC
[2017-01-26 08:20] LABS: IMMUNOGLOBULIN E 255 IU/mL (0-100)
--- NOTE | 2017-01-26 09:15 | NUR ---
MORNING MEDS HELD DUE TO PATIENT BEING NPO AND GOING TO BRONCHOSCOPY. WILL MONITOR PATIENT. CPOC
--- NOTE | 2017-01-26 10:06 | NUR ---
PATIENT PREOP AND READY FOR BRONCH. RESPIRATORY HERE FOR CORPORATE COMPLIANCE DIRECTOR
--- NOTE | 2017-01-26 11:15 | NUR ---
PATIENT BACK FROM PROCEDURE. PATIENT IS RESTING. VS STABLE. FAMILY AT BEDSIDE. CPOC
[2017-01-26 11:18] LABS: IMMUNOGLOBULIN A 554 mg/dL (64-422); IMMUNOGLOBULIN G 1374 mg/dL (700-1600); IMMUNOGLOBULIN M 240 mg/dL (26-217)
[2017-01-26 12:16] LABS: ANA REFLEX - DIRECT Negative (Negative)
--- NOTE | 2017-01-26 13:15 | NUR ---
Nutrition Follow Up: Chart reviewed. Pt is eating 81% meal avg on a regular diet. +BM 01/26/17. Meds and labs reviewed. Pt continues at low nutritional risk. Rec continue current diet. RD following.
--- NOTE | 2017-01-26 14:47 | NUR ---
PATIENT SITTING UP IN BED, STILL DROWSY FROM PROCEDURE. VS STABLE. FAMILY AT BEDSIDE. CPOC
--- NOTE | 2017-01-26 17:43 | NUR ---
PATIENT SITTING UP IN CHAIR, EATING DINNER. FAMILY AT BEDSIDE. PATIENT DENIES ANY NEEDS. CPOC
--- NOTE | 2017-01-26 19:15 | NUR ---
Received patient in bed resting with daughter, brother and [id number] at bedside. Currently patient is alert and oriented x 4, reportedly has had periods of confusion. Had bronchoscopy today, patient states she is still somewhat tired out post procedure and sleepy. Reports no pain, no discomfort, no SOB at this time. PIV in right forearm is infusing NS with 20KCl @100ml/hr. Noted to have a right lower arm hard formed swelling, no redness or warmth to site and is underside of arm not near PIV insertion site. Patient states she has had several lab draws in arms. Remains on 1500 ml daily fluid restriction. Is currently on room air, aware she can use oxygen PRN but denies need for same at this time. Just had a shower so telemetry not hooked up at this time. Will reattach same.
--- NOTE | 2017-01-26 20:30 | NUR ---
Patient complaining of feeling SOB, requesting a Resp Tx. Resp Tech notified of same. Three visitors remain in room with patient.
--- NOTE | 2017-01-26 22:00 | NUR ---
Stool specimen obtained and sent to lab.
--- NOTE | 2017-01-26 22:10 | NUR ---
on unit, other visitors have gone home. will stay with patient overnight in room. Patient reports that Resp Tx helped, reports breathing is improved, no longer SOB. Respirations unlabored on room air. Is resting quietly at this time. IV infusing well.
[2017-01-27] VITALS (11 sets, daily range): BP systolic 132–152; BP diastolic 45–76
--- NOTE | 2017-01-27 02:30 | NUR ---
air control electronics operator on, HR = 85/min, rhythm SR.
--- NOTE | 2017-01-27 03:15 | NUR ---
Eyes closed, respirations unlabored, sleeping with HOB elevated 45 degrees. remains at bedside. No signs of distress at this time.
--- NOTE | 2017-01-27 04:12 | NUR ---
IVPB antibiotic hung, patients denture (partial plate) lying on patient's chest. Placed same in denture cup in water soaking.
[2017-01-27 04:58] LABS: EOSINOPHILS 1.6 % (0-7); HEMATOCRIT 31.6 % (36.0-48.0); HEMOGLOBIN 11.2 g/dL (12-16); IMMATURE GRANULOCYTES 0.3 % (0-5); LYMPHOCYTES 42.1 % (15-50); MCHC 35.4 g/dL (31.0-37.0); MCV 87.5 fL (80.0-100.0); MEAN PLATELET VOLUME 10.3 fL (7.4-10.4); MONOCYTES 12.4 % (2-11); NEUTROPHILS 42.6 % (40-80); PLATELET COUNT 130 10x3/uL (130-400); RBC 3.61 10x6/uL (4.00-5.40); RDW 14.4 % (11.5-14.5); WBC 6.3 10x3/uL (4.8-10.8)
[2017-01-27 05:10] LABS: INR 1.26 (0.85-1.17); PROTIME 15.7 SECONDS (11.6-15.0)
[2017-01-27 05:32] LABS: % SATURATION 23 % (15-55); IRON 46 ug/dl (35-150); TOTAL IRON BIND CAPACITY 197 ug/dl (260-445); UNSAT IRON BIND CAPACITY 151 ug/dl (150-375)
[2017-01-27 05:42] LABS: ALBUMIN 2.2 g/dL (3.4-5.0); ALKALINE PHOSPHATASE 131 U/L (46-116); ALT (SGPT) 41 U/L (10-68); BILIRUBIN - TOTAL 0.83 mg/dL (0.2-1.3); CALC OSMOLALITY 262 mosm/kg (275-300); CALCIUM 7.7 mg/dL (8.5-10.1); CARBON DIOXIDE 22.2 mmol/L (21.0-32.0); CHLORIDE - SERUM 101 mmol/L (98-107); CREATININE - SERUM 0.6 mg/dL (0.6-1.3); FERRITIN 267 ng/mL (3-244); GLUCOSE 115 mg/dL (74-106); POTASSIUM - SERUM 3.8 mmol/L (3.5-5.1); SODIUM 132 mmol/L (136-145); UREA NITROGEN 5 mg/dL (7-18); eGFR NON AFRICAN AMERICAN > 90 mL/min (90-120)
--- NOTE | 2017-01-27 07:29 | NUR ---
PT IS UP TO BATHROOM WITH WILL CONT TO MONITOR
[2017-01-27 07:33] LABS: MAGNESIUM - SERUM 1.6 mg/dL (1.8-2.4); PHOSPHOROUS 2.7 mg/dL (2.5-4.9)
[2017-01-27 10:19] LABS: HEPATITIS C ANTIBODY 0.1 (0.0-0.9)
[2017-01-27 10:19] LABS: ANGIOTENSIN CONVERTING ENZYME 71 U/L (14-82)
--- NOTE | 2017-01-27 11:10 | NUR ---
PT TO IR FOR PROCEDURE
--- NOTE | 2017-01-27 12:40 | NUR ---
PT LAYING DOWN IN BED VS ARE WNL. IN ROOM FEEDING HER LUNCH. DENIES NEEDS WILL CONT TO MONITOR
--- NOTE | 2017-01-27 13:18 | NUR ---
CALLED TO PT ROOM PT REQUESTS BEDPAN. PT DAUGHTER COMES INTO ROOM. PT ASKS HER "DID YOU CALL THEM??" PT DAUGHTER STATES "NO MOTHER I WENT STRAIGHT DOWNSTAIRS AND TALKED TO THEM IN PERSON!". HELPED PT ON THE BEDPAN AND INSTRUCTED PT TO CALL WHEN READY TO GET OFF OF BEDPAN AND HANDED HER HER CALL LIGHT
--- NOTE | 2017-01-27 13:26 | NUR ---
BOND ANALYST HELPED PT OFF OF BEDPAN. DAUGHTER STILL AT BEDSIDE.
[2017-01-27 15:23] LABS: FUNGUS STAIN Final report (())
--- NOTE | 2017-01-27 18:00 | NUR ---
PT SITTING UP IN BED WATCHING TV DENIES NEEDS
[2017-01-27 19:10] LABS: ACID FAST SMEAR Negative (()); AFB SPECIMEN PROCESSING Concentration (())
--- NOTE | 2017-01-27 19:22 | NUR ---
RECEIVED REPORT, WILL ASSUME CARE OF PT, PT SITTING UP IN BED, DENIES ANY NEEDS, AT BEDSIDE, BED IS LOW, SRX2, CALL LIGHT IN REACH, WILL CONTINUE PLAN OF CARE
[2017-01-28] VITALS: BP 144/52
--- NOTE | 2017-01-28 00:21 | NUR ---
GAVE TYLENOL FOR FEVER 101
--- NOTE | 2017-01-28 02:08 | NUR ---
PT RESTING WELL WITHOUT C/O OR DISTRESS NOTED. CALL LIGHT WITHIN REACH. WILL CONT TO MONITOR.
[2017-01-28 04:00] VITALS: BP 124/42
[2017-01-28 05:10] LABS: BASOPHILS 0.9 % (0-2); EOSINOPHILS 1.4 % (0-7); HEMATOCRIT 30.6 % (36.0-48.0); HEMOGLOBIN 10.9 g/dL (12-16); IMMATURE GRANULOCYTES 0.1 % (0-5); LYMPHOCYTES 49.2 % (15-50); MCHC 35.6 g/dL (31.0-37.0); MCV 86.9 fL (80.0-100.0); MEAN PLATELET VOLUME 10.6 fL (7.4-10.4); NEUTROPHILS 37.4 % (40-80); PLATELET COUNT 153 10x3/uL (130-400); RBC 3.52 10x6/uL (4.00-5.40); RDW 14.4 % (11.5-14.5)
[2017-01-28 05:27] LABS: ALBUMIN 2.2 g/dL (3.4-5.0); ALKALINE PHOSPHATASE 142 U/L (46-116); ALT (SGPT) 39 U/L (10-68); CALC OSMOLALITY 257 mosm/kg (275-300); CALCIUM 8.1 mg/dL (8.5-10.1); CARBON DIOXIDE 24.1 mmol/L (21.0-32.0); CHLORIDE - SERUM 101 mmol/L (98-107); CREATININE - SERUM 0.7 mg/dL (0.6-1.3); GLUCOSE 101 mg/dL (74-106); MAGNESIUM - SERUM 1.4 mg/dL (1.8-2.4); PHOSPHOROUS 2.9 mg/dL (2.5-4.9); POTASSIUM - SERUM 3.5 mmol/L (3.5-5.1); PROTEIN - SERUM 5.8 g/dL (6.4-8.2); SODIUM 130 mmol/L (136-145); eGFR NON AFRICAN AMERICAN 87 mL/min (90-120)
[2017-01-28 05:30] LABS: UREA NITROGEN 3 mg/dL (7-18)
[2017-01-28 06:13] LABS: ALPHA FETOPROTEIN -(TUMOR MRK) 3.9 ng/mL (0.0-8.3)
--- NOTE | 2017-01-28 07:35 | NUR ---
AM ROUNDING- RECIEVED REPORT FROM TIE HACKER NURSE JOANNA. PT IS CURRENTLY SITTING UP ON SIDE OF BED WITH EYES OPEN RESTING. IS AT BEDSIDE. ON ROOM AIR. ON MONITOR SHOWING CONTROLLED A-FIB, HR 90. IV SEEN TO RIGHT FOREARM WITH NS WITH 20K+ RUNNING AT 100CC. PT IS ON 1,500CC FLUID RESTRICTION. NO NEED AT THIS CURRENT TIME. PTS STATES THEY ARE READY TO GO HOME. WILL CONTINUE TO MONITOR AND CONTINUE WITH PLAN OF CARE.
[2017-01-28 08:21] VITALS: BP 107/57
[2017-01-28] MEDS ORDERED: OS-CAL500 MG PO (10:57)
[2017-01-28] MEDS ORDERED: NORVASC5 MG PO (10:57)
[2017-01-28] MEDS ORDERED: MAG-OX 400 MG400 MG PO (10:58)
[2017-01-28] MEDS ORDERED: PULMICORT0.5 MG/21 UPD (10:58)
[2017-01-28] MEDS ORDERED: THERMOTABS 1 GM1 GM PO (10:59)
[2017-01-28] MEDS ORDERED: IPRAT-ALBUT 0.5-3 ML UPD (10:59)
[2017-01-28 12:19] VITALS: BP 120/50
--- NOTE | 2017-01-28 13:05 | NUR ---
PTS IS AT NURSES STATION ASKING WHEN PT WILL GET TO GO HOME. THIS NURSE INFORMED THAT THE SLOT SUPERVISOR JUST GOT TO UNIT.
--- NOTE | 2017-01-28 13:41 | NUR ---
PT AND PTS ARE UPSET BECAUSE ACCORDING TO DR. PHAM D/C ORDER THAT PT NEEDS TO BE SET UP WITH HOME NEBULIZER AND INHALER AT HOME PRIOR TO BEING D/C. PER CHRISTEN, SURFACE GRINDER TENDER; THE COMPANY THAT WOULD DELIEVER PTS NEBULIZER IS OUT OF [place] AND DIDN'T KNOW HOW LONG IT WOULD TAKE FOR THEM TO BRING SUPPLIES. THIS NURSE PAGED DR. PHAM OFFICE AND RECIEVED IMMEDIATE CALLBACK FROM DR. RENO. DR. RENO INFORMED OF SITUATION. DR. RENO STATES IT IS OKAY FOR SUPPLIES TO BE DELIEVERED TO PTS HOME. CHRISTEN, SURFACE GRINDER TENDER INFORMED OF THIS.
--- NOTE | 2017-01-28 15:57 | NUR ---
D/C INSTRUCTIONS EXPLAINED TO PT AND . D/C PAPERWORK SIGNED BY PT AND PLACED IN CHART. IV TO RIGHT FOREARM REMOVED WITH CATH TIP INTACT. HEART MONITOR REMOVED AND RETURNED TO ZFOIA IN TELEMETRY. PT D/C VIA WHEELCHAIR.
--- NOTE | 2017-01-28 18:32 | NUR ---
Late Entry 1215 Received MD order for procurement of nebulizer and medication. Obtained [employer] contact phone number [phone]. TC to [facility]. Spoke with Holly. Discussed MD orders and contact information for patient and counseling case manager. CM faxed face sheet, MD orders and medication orders. Contact number for patient and CM given. Confirmation of fax received. Holly stated they would call if any questions and regarding delivery. CM went to the bedside to speak with the patient. Spoke with the patient and her , Pasquale. They stated they were not told about the nebulizer. They were wanting to leave. CM discussed MD orders and MD plan. KELLY spoke with the primary nurse, Cassie. She went in to speak with the patient. She called DR Welsh. Cassie advised KELLY that the nebulizer could be delivered to the patient's home. Patient could be discharged to home. 1700 TC to HARMON[facility]. KELLY spoke with Deanna. KELLY following up on nebulizer order. Deanna states the patient was notified Harmony needed a prescription and told to call the doctor's office on Monday. KELLY was not notified of the above. Confirmation of fax had been received. Deanna stated her information stated order had not been received. KELLY refaxed the MD order. Advised Harmony, I should have been notified as they had my contact information from the phone call and fax. Reportedly the fax was not received. Confirmed the fax number and as above refaxed. TC to the patient. KELLY spoke with her daughter Laura Baez. Explained I had followed up with Harmony. Advised I had refaxed the order and would follow up again on Monday.
[2017-01-29 12:08] LABS: SMOOTH MUSCLE ABS (ACTIN) 13 Units (0-19)
[2017-01-30 08:09] LABS: ANA REFLEX - DIRECT Negative (Negative)
[2017-01-30 13:13] LABS: MITOCHONDRIAL ANTIBODY 7.2 Units (0.0-20.0)
--- NOTE | 2017-01-30 13:33 | NUR ---
Rec'd phone call from patient's daughter, Neida. She states patient has not received home nebulizer. She states Harmony has called them and told them they can not process order due to not having a qualifying diagnosis. She requests order be sent to [facility]. I called and spoke with Selbe at Dr. Welsh's office - above explained. Seble states she will talk with Dr. Welsh and if nebulizer is still needed, they will [facility] and [facility] an order. Seble states she will call daughter with status update after she talks with Dr. Welsh. I called Neida and explained above, verbalized understanding. Advised both Neida & Seble to call if I can be of any assistance.
== END 2017-01-28 16:01 | disposition home or self-care (01) | DRG 689 ==
LOC: D.ER 03:42 → OBSVTIME 04:48 → D.M2 04:48
PROVIDERS: Emergency Medicine; Family Medicine; Internal Medicine Pulmonary Disease; ADMIT Family Medicine
PROC: 0BB38ZX Excision of Right Main Bronchus, Via Natural or Artificial Opening Endoscopic, Diagnostic (ICD-10-PCS; 2017-01-26)
PROC: 0BB78ZX Excision of Left Main Bronchus, Via Natural or Artificial Opening Endoscopic, Diagnostic (ICD-10-PCS; principal; 2017-01-26 10:16)
PROC: 0FB23ZX Excision of Left Lobe Liver, Percutaneous Approach, Diagnostic (ICD-10-PCS; 2017-01-27)
DX: N39.0 Urinary tract infection, site not specified (principal); G93.41 Metabolic encephalopathy; E87.1 Hypo-osmolality and hyponatremia; K50.90 Crohn's disease, unspecified, without complications; E87.6 Hypokalemia; R41.0 Disorientation, unspecified; I10 Essential (primary) hypertension; E83.51 Hypocalcemia; R26.9 Unspecified abnormalities of gait and mobility; J01.01 Acute recurrent maxillary sinusitis; J01.31 Acute recurrent sphenoidal sinusitis; J01.21 Acute recurrent ethmoidal sinusitis; I51.7 Cardiomegaly; J84.10 Pulmonary fibrosis, unspecified; Z77.120 Contact with and (suspected) exposure to mold (toxic); K74.60 Unspecified cirrhosis of liver; J45.909 Unspecified asthma, uncomplicated

== ENCOUNTER 2019-01-04 13:35 | Emergency (ER) | payer MEDICARE ==
[~2019-01-04] VITALS: Ht 167.6 cm; Wt 75.5 kg
[~2019-01-04 13:35] MED LIST: HYDROCHLOROTH12.5 M1 PO; INDERAL 40 MG T40 MG PO; IPRAT-ALBUT 0.5-3 ML UPD; LIPITOR10 MG PO; MAG-OX 400 MG400 MG PO; NORVASC5 MG PO; OMEPRAZOLE20 M1 PO; OS-CAL500 MG PO; PULMICORT0.5 MG/21 UPD; THERMOTABS 1 GM1 GM PO
[2019-01-04 13:38] VITALS: Ht 167.6 cm; Wt 75.5 kg
[2019-01-04] MEDS ORDERED: PROBIOTIC250 MG PO (13:43)
[2019-01-04] MEDS ORDERED: NEXIUM20 MG PO (13:44)
[2019-01-04 14:29] LABS: INR 1.39 (0.85-1.17); PROTIME 16.5 SECONDS (11.6-15.0)
[2019-01-04 14:37] LABS: D-DIMER-QUANTITATIVE 9.73 ug/mLFEU (0.20-0.54)
[2019-01-04 14:38] LABS: BASOPHILS 0.8 % (0-2); EOSINOPHILS 4.4 % (0-7); HEMATOCRIT 33.9 % (36.0-48.0); HEMOGLOBIN 11.6 g/dL (12-16); IMMATURE GRANULOCYTES 0.2 % (0-5); LYMPHOCYTES 23.7 % (15-50); MCH 31.2 pg (26.0-34.0); MCHC 34.2 g/dL (31.0-37.0); MCV 91.1 fL (80.0-100.0); MEAN PLATELET VOLUME 10.2 fL (7.4-10.4); MONOCYTES 15.2 % (2-11); NEUTROPHILS 55.7 % (40-80); PLATELET COUNT 149 10x3/uL (130-400); RBC 3.72 10x6/uL (4.00-5.40); RDW 14.5 % (11.5-14.5); WBC 6.6 10x3/uL (4.8-10.8)
[2019-01-04 15:02] LABS: ALBUMIN 2.6 g/dL (3.4-5.0); ALKALINE PHOSPHATASE 127 U/L (46-116); ALT (SGPT) 30 U/L (10-68); BILIRUBIN - TOTAL 2.04 mg/dL (0.2-1.3); CALC OSMOLALITY 269 mosm/kg (275-300); CALCIUM 8.4 mg/dL (8.5-10.1); CARBON DIOXIDE 29.7 mmol/L (21.0-32.0); CHLORIDE - SERUM 101 mmol/L (98-107); CREATININE - SERUM 0.8 mg/dL (0.6-1.3); GLUCOSE 121 mg/dL (74-106); SODIUM 136 mmol/L (136-145); UREA NITROGEN 3 mg/dL (7-18); eGFR NON AFRICAN AMERICAN 74 mL/min (90-120)
[2019-01-04 15:12] LABS: CKMB 0.9 U/L (0.0-3.6); CREATINE KINASE 42 UL (21-215); MAGNESIUM - SERUM 1.8 mg/dL (1.8-2.4); PRO BNP 311 pg/mL (0-450); TROPONIN-I < 0.017 ng/mL (0.000-0.060)
[2019-01-04 16:28] LABS: APPEARANCE CLEAR (CLEAR); BILIRUBIN NEGATIVE (NEGATIVE); COLOR YELLOW (YELLOW); GLUCOSE NEGATIVE (NEGATIVE); KETONE NEGATIVE (NEGATIVE); NITRITE NEGATIVE (NEGATIVE); PROTEIN NEGATIVE (NEGATIVE); UROBILINOGEN NORMAL (NORMAL)
[2019-01-04 16:40] LABS: BACTERIA FEW /hpf (NONE SEEN); RED CELLS - URINE OCC /hpf (0-5); WHITE CELLS - URINE 0-5 /hpf (0-5)
[2019-01-04 17:16] VITALS: BP 140/52
== END 2019-01-04 17:16 | disposition home or self-care (01) ==
LOC: D.ER 13:35
PROVIDERS: Family Medicine
DX: I87.8 Other specified disorders of veins (principal); R60.9 Edema, unspecified

== ENCOUNTER 2019-07-02 00:09 | Inpatient (IN) | payer MEDICARE ==
[~2019-07-02] VITALS: Ht 167.6 cm; Wt 75.0 kg
[~2019-07-02 00:09] MED LIST changes: +NEXIUM20 MG PO; +PROBIOTIC250 MG PO
[2019-07-02 00:53] LABS: BASOPHILS 0.4 % (0-2); EOSINOPHILS 2.1 % (0-7); HEMATOCRIT 26.6 % (36.0-48.0); HEMOGLOBIN 9.3 g/dL (12-16); IMMATURE GRANULOCYTES 0.4 % (0-5); LYMPHOCYTES 18.6 % (15-50); MCH 30.3 pg (26.0-34.0); MCV 86.6 fL (80.0-100.0); MEAN PLATELET VOLUME 10.2 fL (7.4-10.4); MONOCYTES 20.9 % (2-11); NEUTROPHILS 57.6 % (40-80); RBC 3.07 10x6/uL (4.00-5.40); RDW 14.3 % (11.5-14.5); WBC 9.2 10x3/uL (4.8-10.8)
[2019-07-02 00:54] LABS: PLATELET COUNT 239 10x3/uL (130-400)
[2019-07-02 00:57] LABS: ANION GAP 11.1 mmol/L (8-16); CALCIUM 8.6 mg/dL (8.5-10.1); CARBON DIOXIDE 26.3 mmol/L (21.0-32.0); CREATININE - SERUM 1.9 mg/dL (0.6-1.3); POTASSIUM - SERUM 3.4 mmol/L (3.5-5.1)
[2019-07-02 01:03] LABS: APTT 33.8 SECONDS (22.8-39.4); INR 1.33 (0.85-1.17); PROTIME 16.4 SECONDS (11.6-15.0)
[2019-07-02 01:14] LABS: ALBUMIN 2.1 g/dL (3.4-5.0); BILIRUBIN - TOTAL 2.04 mg/dL (0.2-1.3); PROTEIN - SERUM 6.9 g/dL (6.4-8.2); THYROID STIMULATING HORMONE 2.66 uIU/mL (0.36-3.74); TROPONIN-I 0.021 ng/mL (0.000-0.060)
--- NOTE | 2019-07-02 01:33 | NUR ---
PT ASSISTED ONTO BEDPAN FOR UA
--- NOTE | 2019-07-02 01:45 | NUR ---
PT UNABLE TO URINATE ON BEDPAN. IN/OUT CATH PERFORMED ON PT. PT TOLERATED WELL.
[2019-07-02 02:10] LABS: BILIRUBIN NEGATIVE (NEGATIVE); GLUCOSE NEGATIVE (NEGATIVE); KETONE NEGATIVE (NEGATIVE); NITRITE NEGATIVE (NEGATIVE); SPECIFIC GRAVITY 1.015 (1.005-1.020); UROBILINOGEN NORMAL (NORMAL)
[2019-07-02 02:12] LABS: AMORPHOUS SEDIMENT >1+ /lpf (NONE SEEN); BACTERIA FEW /hpf (NEGATIVE); EPITHELIAL CELLS 0-5 /hpf (0-5); RED CELLS - URINE 0-5 /hpf (0-5); WHITE CELLS - URINE 0-5 /hpf (NEGATIVE)
[2019-07-02 03:15] VITALS: BP 114/44; BMI 23.7
--- NOTE | 2019-07-02 03:52 | NUR ---
REPORT RECIEVED FROM ER. PT ARRIVED BY BED. SPOUSE AT BEDSIDE. PT ALERT BUT CONFUSED. AFVSS, DBP 44. SWELLING LOCATED IN BLE, ABD DISTENDED AND FIRM. NO S/S OF RT DISTRESS. NS INFUSING ON ARRIVAL. IV SITE WRAPPED BY ER NURSE. PT ON TRUE ALARM. FALL RISK IN PLACE. PT PLACED NPO AND DAILY WEIGHT. ADMISSION ASSESMENT COMPLETED. WARM BLANKET PROVIDE. PT DENIES ANY FURTHER NEEDS AT THIS TIME. WILL CTM. CL WITHIN REACH, BED IN LOW, SR UP X2.
--- NOTE | 2019-07-02 06:16 | NUR ---
PT WEIGHT COULD NOT BE MEASURED AT THIS TIME. DUE TO CONFUSION. PT HAS TRIED TO GET OOB 3 TIMES SINCE ADMISSION. PT REFUSED IV FLUIDS AND ATTEMPT TO PULL OUT PIV. TRUE ALARM ON. FAMILY @[facility]. WILL CTM.
[2019-07-02 06:30] VITALS: BP 114/44
--- NOTE | 2019-07-02 07:15 | NUR ---
PT RECEIVED IN BED BUT FIDGETY AND SETTING OFF BED ALARM. CONFUSED AND NOT VERBALIZING MUCH AND KEEPING EYES CLOSED. FAMILY IN ROOM. POSITIONED IN BED. ABDOMEN DISTENDED AND BLE SWOLLEN WITH 3+ EDEMA.
[2019-07-02 08:34] VITALS: BP 112/37
[2019-07-02 13:00] VITALS: BMI 23.7
--- NOTE | 2019-07-02 14:09 | NUR ---
DO PLACED PER ORDER, URINE SENT TO LAB. IV RE-SITE, LASIX GIVEN. TRYING TO GET PT TO DRINK CONSTULOSE. SLEPT FOR ABOUT 4 HOURS THIS MORNING.
[2019-07-02 16:04] VITALS: BP 119/35
[2019-07-02 18:21] LABS: ERYTHROCYTE SEDIMENTATION RATE 37 mm/hr (0-30)
--- NOTE | 2019-07-02 19:54 | NUR ---
AT REST WITH EYES CLOSED IS WITH PT BED LOW AND LOCKED CALL LIGHT WITH /SITTER
[2019-07-02 20:46] VITALS: Ht 167.6 cm; Wt 75.0 kg
[2019-07-02 21:03] VITALS: BP 110/40
[2019-07-03] VITALS (7 sets, daily range): BP systolic 102–131; BP diastolic 30–49
--- NOTE | 2019-07-03 02:10 | NUR ---
I have reviewed this patient and I concur with the Shift Assessment completed by the Licensed Practical Nurse today this shift.
[2019-07-03 05:41] LABS: APTT 38.4 SECONDS (22.8-39.4); INR 1.48 (0.85-1.17); PROTIME 17.7 SECONDS (11.6-15.0)
[2019-07-03 05:51] LABS: ALBUMIN 1.9 g/dL (3.4-5.0); ANION GAP 10.8 mmol/L (8-16); BILIRUBIN - TOTAL 2.46 mg/dL (0.2-1.3); CALCIUM 8.3 mg/dL (8.5-10.1); CREATININE - SERUM 1.7 mg/dL (0.6-1.3); POTASSIUM - SERUM 3.8 mmol/L (3.5-5.1); PROTEIN - SERUM 6.2 g/dL (6.4-8.2); VANCOMYCIN - RANDOM 9.8 ug/mL (10.0-20.0)
[2019-07-03 05:56] LABS: BASOPHILS 0.4 % (0-2); EOSINOPHILS 1.8 % (0-7); HEMATOCRIT 24.3 % (36.0-48.0); HEMOGLOBIN 8.4 g/dL (12-16); IMMATURE GRANULOCYTES 0.4 % (0-5); LYMPHOCYTES 20.4 % (15-50); MCH 30.1 pg (26.0-34.0); MCHC 34.6 g/dL (31.0-37.0); MCV 87.1 fL (80.0-100.0); MEAN PLATELET VOLUME 9.8 fL (7.4-10.4); MONOCYTES 18.7 % (2-11); NEUTROPHILS 58.3 % (40-80); PLATELET COUNT 219 10x3/uL (130-400); RBC 2.79 10x6/uL (4.00-5.40); RDW 14.4 % (11.5-14.5); WBC 7.7 10x3/uL (4.8-10.8)
--- NOTE | 2019-07-03 11:43 | NUR ---
[facility] CONSENTS SIGNED.
--- NOTE | 2019-07-03 15:58 | NUR ---
PT TAKEN VIA BED TO [facility].
--- NOTE | 2019-07-03 16:18 | NUR ---
SPOKE WITH SOHAM TEE AND SHE STATES PT CAN HAVE A DIET ORDERED AFTER SHE RETRUNS FROM [facility].
--- NOTE | 2019-07-03 16:50 | NUR ---
PT RETURNED VIA BED. ALBUMIN INFUSING WITH 1/2NS VIA GRAVITY VIA RIGHT AC 22G IV. ALERT AND ORIENTED. LEFT SIDE OF ABDOMEN INCISION WITH TEGADERM C/D/I. VS STABLE. DAUGHTER AT BEDSIDE. BED ALARM ON. BED LOW. CL IN REACH.
--- NOTE | 2019-07-03 16:50 | NUR ---
PT RETURNED VIA BED. RADIOLOGY NURSE STATED THEY REMOVED 2800ML. ALBUMIN INFUSING WITH 1/2NS VIA GRAVITY VIA RIGHT AC 22G IV. ALERT AND ORIENTED. LEFT SIDE OF ABDOMEN INCISION WITH TEGADERM C/D/I. VS STABLE. DAUGHTER AT BEDSIDE. BED ALARM ON. BED LOW. CL IN REACH.
--- NOTE | 2019-07-03 17:44 | NUR ---
I have reviewed this patient and I concur with the Shift Assessment completed by the Licensed Practical Nurse today this shift.
[2019-07-03 19:42] LABS: EOS BF 3 %; MACROPHAGES BF 12 %; MESOTHELIALS BF 2 %; NEUT - BF 22 %
[2019-07-04] VITALS: BP 131/41
[2019-07-04 04:00] VITALS: BP 98/44
[2019-07-04 05:16] LABS: BASOPHILS 0.5 % (0-2); HEMATOCRIT 22.9 % (36.0-48.0); HEMOGLOBIN 7.9 g/dL (12-16); IMMATURE GRANULOCYTES 0.2 % (0-5); LYMPHOCYTES 26.7 % (15-50); MCH 30.4 pg (26.0-34.0); MCHC 34.5 g/dL (31.0-37.0); MCV 88.1 fL (80.0-100.0); MEAN PLATELET VOLUME 9.7 fL (7.4-10.4); MONOCYTES 17.3 % (2-11); NEUTROPHILS 52.3 % (40-80); RDW 14.7 % (11.5-14.5)
[2019-07-04 05:30] LABS: PLATELET COUNT 172 10x3/uL (130-400)
[2019-07-04 05:47] LABS: ALBUMIN 1.9 g/dL (3.4-5.0); BILIRUBIN - TOTAL 2.2 mg/dL (0.2-1.3); CARBON DIOXIDE 27.3 mmol/L (21.0-32.0); CREATININE - SERUM 1.4 mg/dL (0.6-1.3); POTASSIUM - SERUM 3.3 mmol/L (3.5-5.1); PROTEIN - SERUM 5.6 g/dL (6.4-8.2)
--- NOTE | 2019-07-04 10:05 | NUR ---
Rehab Note- Acute Inpatient Rehab prescreen order received. THe patient has [employer] insurance and will require a PreAuth prior to an acute inpatient rehab stay. Will need an OT Eval ordered for the PreAuth process. Thank you for this referral! Mariajose Logan RN Clinical Liaison, [facility] Rehab
[2019-07-04 10:59] VITALS: BP 119/39
--- NOTE | 2019-07-04 13:27 | NUR ---
Nutrition Follow-up: Ate ~50% of breakfast this AM. Noted pt had paracentesis yesterday (-2800 cc). Denies N/V. Family member requesting diet info re: liver; she also reports that pt is not diabetic. Diet: Diabetic No new wt; last wt: 147# (07/02) Last BM: 07/04 per family; they report pt always has loose BMs 2/2 Crohn's/previous surgery. Labs noted: K+ 3.3, Glu 99, Glu POC 232, Ca 8.0, Alb 1.9 Meds noted: Humulin, Lasix, Oscal, Lactulose, MagOx, Protonix, KCl -Add low Na to current diet order. -Rec draw A1C. -Provided and discussed "Cirrhosis Nutrition Therapy". -Need new wt; noted daily wts ordered. -RD following.
[2019-07-04 13:52] VITALS: BP 135/44
--- NOTE | 2019-07-04 16:48 | EC ---
PATIENT:MOHINI AUGUSTIN DATE OF SERVICE: 07/02/19 SEX: F MEDICAL RECORD: [id number] DATE OF : 41 LOCATION:D.M2 D.210 AGE OF PATIENT: 74 ADMISSION DATE: 07/02/19 REFERRING PHYSICIAN: INTERPRETING PHYSICIAN: DAVID HILL MD ECHOCARDIOGRAM REPORT ECHO CHARGES 4 ECHO COMPLETE Date: 07/02/19 CLINICAL DIAGNOSIS: CHF ECHOCARDIOGRAPHIC MEASUREMENTS (adult normal given) AC root (d.<3.7cm) 2.9 cm LV Septum d (<1.2 cm> 0.9 cm Valve Excursion 1.7 cm LV Septum (systole) 1.0 cm Left Atria (s.<4.0cm> 3.7 cm LVPW d(<1.2cm) 1.1 cm RV (d.<2.3cm) 2.5 cm LVPW (sytole) 1.2 cm LV diastole(<5.6CM) 4.0 cm MV E-F(>70mm/sec) cm LV systole 2.6 cm LVOT Diameter 1.6 cm MV exc.(>10mm) cm Est.ejection fraction (50-75%) % DOPPLER: LVIT cm/sec A 108 cm/sec E 87 cm/sec LA cm/sec RVSP 32.3 mmHg LVOT 139 cm/sec AOP1/2T m/s Asc. Ao 147 cm/sec RVOT 80 cm/sec RA cm/sec PA 93 cm/sec AV Gradient Peak 8.6 mmHg AV Mean 5.4 mmHg AV Area 1.9 cm MV Gradient Peak 5.8 mmHg MV Mean 3.3 mmHg MV Area cm COMMENTS: Beauty Operator: Bud [facility] Waiter/Waitress Tourist Class: 1 Dr. Hill TAPE# PACS Pericardial Effusion N DATE OF SERVICE: 07/02/2019 PROCEDURE: Echocardiogram. FINDINGS: 1. Left ventricular chamber size is within normal limits. Left ventricular systolic function is normal. Overall ejection fraction estimated at 55%. 2. Left atrium, right atrium, right ventricular chamber sizes are within normal limits. 3. Valvular structures have normal structure and motion. ECHOCARDIOGRAM REPORT [id number] MOHINI AUGUSTIN 4. Doppler interrogation reveals trace mitral regurgitation, mild tricuspid regurgitation, no other valvular insufficiency or stenosis. Pulmonary systolic pressure estimated at 33 mmHg. 5. No evidence of pericardial effusion or left ventricular thrombus. TRANSINT:[id number] Voice Confirmation ID: [id number] DOCUMENT ID: [id number] DAVID HILL MD at 1648 CC: [id number] DICTATION DATE: 07/03/19 1025 POWER BALLAST MACHINE OPERATOR: 07/03/19 1134 ADM IN [facility] [address] [place] [address]
--- NOTE | 2019-07-04 17:35 | NUR ---
OT NOTE: PT COMPLETED BED MOB SUPINE TO SIT WITH CGA. PT COMPLETED SIT TO STAND WITH CGA. PT COMPLETED ADL MOB WITH MIN A. PT COMPLETED UE AROM AXS. [id number] THANK YOU,NATALEE FINLEY
--- NOTE | 2019-07-04 19:20 | NUR ---
PT IS AWAKE OX4 SITTING UP IN BED AND NEEDS MEET FAMILY IS WITH PT BED LOW AND LOCKED CALL LIGHT IS WITH PT
[2019-07-04 20:00] VITALS: BP 134/63
--- NOTE | 2019-07-05 03:32 | NUR ---
I have reviewed this patient and I concur with the Shift Assessment completed by the Licensed Practical Nurse today this shift.
[2019-07-05 04:00] VITALS: BP 128/63
[2019-07-05 04:21] LABS: BASOPHILS 0.1 % (0-2); EOSINOPHILS 2.1 % (0-7); IMMATURE GRANULOCYTES 0.5 % (0-5); LYMPHOCYTES 10.8 % (15-50); MCH 30.3 pg (26.0-34.0); MCHC 34.4 g/dL (31.0-37.0); MCV 87.9 fL (80.0-100.0); MEAN PLATELET VOLUME 10.1 fL (7.4-10.4); MONOCYTES 16.5 % (2-11); PLATELET COUNT 185 10x3/uL (130-400); RDW 14.4 % (11.5-14.5)
[2019-07-05 04:28] LABS: HEMATOCRIT 29.9 % (36.0-48.0); HEMOGLOBIN 10.3 g/dL (12-16); WBC 9.7 10x3/uL (4.8-10.8)
[2019-07-05 04:41] LABS: ALBUMIN 2.2 g/dL (3.4-5.0); ANION GAP 10.2 mmol/L (8-16); BILIRUBIN - TOTAL 2.79 mg/dL (0.2-1.3); CALCIUM 8.4 mg/dL (8.5-10.1); CARBON DIOXIDE 30.2 mmol/L (21.0-32.0); CREATININE - SERUM 1.3 mg/dL (0.6-1.3); POTASSIUM - SERUM 3.4 mmol/L (3.5-5.1); PROTEIN - SERUM 6.4 g/dL (6.4-8.2)
[2019-07-05 10:03] VITALS: BP 116/44
[2019-07-05] MEDS ORDERED: XIFAXAN550 MG PO (10:59)
[2019-07-05] MEDS ORDERED: CHRONULAC30 ML PO (11:02)
[2019-07-05] MEDS ORDERED: ALDACTONE100 MG PO (11:04)
[2019-07-05] MEDS ORDERED: LASIX40 MG PO (11:04)
--- NOTE | 2019-07-05 12:34 | MORECARE ---
CASE MANAGEMENT DISCHARGE SUMMARY PATIENT: MOHINI AUGUSTIN UNIT: [id number] ADM DATE: 07/02/19 AGE: 74 : 43 SEX: F ROOM/BED: D.2102 AUTHOR: ROBI,DOC PHYSICIAN: REFERRING PHYSICIAN: LUKE MARCOS MD DATE OF SERVICE: 07/05/19 Discharge Plan Patient Name: MOHINI AUGUSTIN Facility: [facility]:[place] : 1945 Planned Disposition: Inpatient Rehab Anticipated Discharge Date: Discharge Date: Expected LOS: Initial Reviewer: [id number] Initial Review Date: 07/05/2019 Generated: 07/05/19 1:33 pm Comments DCP- Discharge Planning Updated by [id number]: Bree Ghosh on 07/05/19 11:[address] Patient Name: MOHINI AUGUSTIN Admission Status: ER Accout number: [id number] Admission Date: 07-02-2019 : 1945 Admission Diagnosis: Attending: LUKE MARCOS Current LOS: 3 Anticipated DC Date: Planned Disposition: Inpatient Rehab Primary Insurance: [employer] MEDICARE PPO or HMO Discharge Planning Comments: CM MET WITH PATIENT AFTER OBTAINING VERBAL CONSENT. PATIENT PLANS TO DC TO [facility] SOON. IMM SIGNED. FAMILY AT BEDSIDE. CM TO FOLLOW AND ASSIST NEEDED. Corral Boss: Bree Ghosh DCPIA - Discharge Planning Initial Assessment Updated by [email or web address]: Bree Ghosh on 07/05/19 12:31 pm * Is the patient Alert and Oriented? Yes * PCP ROWDY * Pharmacy [facility] * Preadmission Environment Home with Family * ADLs Independent * Other Equipment 02, [facility] WITH [facility] * Community resources currently utilized None * Additional services required to return to the preadmission environment? Yes * Can the patient safely return to the preadmission environment? Yes * Has this patient been hospitalized within the prior 30 days at any hospital? No Coverage Notice Reviewer: [id number] - Bree Ghosh Notice Issued Date-Time: 07/05/2019 12:30 Notice Type: IM Discharge Notice Notice Delivered To: Patient Relationship to Patient: Typist Name: Delivery Method: HAND - Hand Delivered Gisela Days: Prior Verbal Notification: Recipient Understood Notice: Yes Recipient Signature: Yes Med Rec Note Co-signed by Attending: Coverage Notice Comment: Patient Name: MOHINI AUGUSTIN Page [id number] at 1234 All edits/amendments must be made on the electronic document DICTATION DATE: 07/05/19 1233 PRESS OPERATOR: ETIENNE 07/05/19 1233 RPT#: [id number] DC DATE: STATUS: ADM IN [facility] [address] [place] [address] END OF REPORT
[2019-07-05 18:09] VITALS: BP 120/59
--- NOTE | 2019-07-05 19:00 | NUR ---
REPORT RECEIVED. BEDSIDE SHIFT REPORT COMPLETE. PT UP IN BED RECEIVING U PDRAFT. FAMILY PRESENT AT BEDSIDE. RR EVEN AND UNLABORED. NO S/SX OF DISTRESS OBSERVED AT THIS TIME. DENIES NEEDS. CALL LIGHT IN REACH. WILL CTM.
[2019-07-05 20:30] VITALS: BP 127/62
[2019-07-06 04:30] VITALS: BP 124/41
--- NOTE | 2019-07-06 05:05 | NUR ---
PIV TO RIGHT FA D/C WITH CATHETER TIP INTACT. NEW 22G PIV STARTED TO LEFT AC X2 ATTEMPTS. PT TOLERATED WELL. WILL CTM.
[2019-07-06 05:20] LABS: BASOPHILS 0.2 % (0-2); EOSINOPHILS 1.7 % (0-7); HEMATOCRIT 28.9 % (36.0-48.0); HEMOGLOBIN 9.8 g/dL (12-16); IMMATURE GRANULOCYTES 0.4 % (0-5); LYMPHOCYTES 12.4 % (15-50); MCHC 33.9 g/dL (31.0-37.0); MCV 88.4 fL (80.0-100.0); MEAN PLATELET VOLUME 11.4 fL (7.4-10.4); MONOCYTES 17.9 % (2-11); NEUTROPHILS 67.4 % (40-80); RBC 3.27 10x6/uL (4.00-5.40); RDW 14.4 % (11.5-14.5); WBC 11.3 10x3/uL (4.8-10.8)
[2019-07-06 05:26] LABS: PLATELET COUNT 117 10x3/uL (130-400)
[2019-07-06 05:49] LABS: ALBUMIN 2.1 g/dL (3.4-5.0); BILIRUBIN - TOTAL 2.99 mg/dL (0.2-1.3); CALCIUM 8.3 mg/dL (8.5-10.1); CARBON DIOXIDE 26.7 mmol/L (21.0-32.0); CREATININE - SERUM 1.3 mg/dL (0.6-1.3); POTASSIUM - SERUM 3.7 mmol/L (3.5-5.1); PROTEIN - SERUM 6.5 g/dL (6.4-8.2)
--- NOTE | 2019-07-06 07:43 | NUR ---
PATIENT IS ALERT AND AWAKE. SHE IS LAYING IN BED ON HER BACK AT THIS TIME. EYES CLOSED. SHE DENIES ANY NEEDS AT THIS TIME.
[2019-07-06 08:21] VITALS: BP 133/56
[2019-07-06 11:22] VITALS: BP 134/45
[2019-07-06 15:32] VITALS: BP 135/64
--- NOTE | 2019-07-06 15:53 | NUR ---
REMOVED DO CATH ORDERED. PATIENT IS AWARE SHE MUST VOID WITHIN 4 HOURS AFTER REMOVAL. REMOVED 9ML STERILE WATER FROM THE BALLOON BEFORE REMOVAL, AND PATIENT REPORTS NO DISCOMFORT ON REMOVAL. 400ML CONCENTRATED YELLOW URINE IN DO BAG. PATIENT REPORTS NAUSEA AGAIN, AND ZOFRAN GIVEN ORDERED PRN. AT BEDSIDE. PATIENT IS STILL WAITING ON A ROOM IN REHAB.
--- NOTE | 2019-07-06 19:10 | NUR ---
BEDSIDE REPORT RECEIVED FROM DAY SHIFT, PT CARE ASSUMED. INTRODUCED SELF AND WROTE NAME ON BOARD. PT UP TO RESTROOM, AT BEDSIDE. VERBALIZED UNDERSTANDING TO USE CALL LIGHT FOR ASSISTANCE. DENIES ANY NEEDS AT THIS TIME. BED IN LOWEST POSITION, CALL LIGHT WITHIN REACH. WILL CONTINUE TO MONITOR.
--- NOTE | 2019-07-06 20:08 | NUR ---
ASSISTED PT BACK TO BED FROM RESTROOM. 100 ML CONCENTRATED YELLOW URINE NOTED IN HAT IN TOILET. DENIES PAIN OR ISSUES WITH URINATING. REPOSITIONED FOR COMFORT. FAMILY AT BEDSIDE. DENIES ANY OTHER NEEDS AT THIS TIME. BED IN LOWEST POSITION, SR X2, CALL LIGHT WITHIN REACH. WILL CONTINUE TO MONITOR.
[2019-07-06 20:30] VITALS: BP 130/60
[2019-07-07 00:30] VITALS: BP 109/41
[2019-07-07 04:30] VITALS: BP 115/49
[2019-07-07 05:33] LABS: BASOPHILS 0.2 % (0-2); EOSINOPHILS 1.3 % (0-7); HEMATOCRIT 28.4 % (36.0-48.0); HEMOGLOBIN 9.6 g/dL (12-16); IMMATURE GRANULOCYTES 0.4 % (0-5); LYMPHOCYTES 14.8 % (15-50); MCH 30.2 pg (26.0-34.0); MCHC 33.8 g/dL (31.0-37.0); MCV 89.3 fL (80.0-100.0); MEAN PLATELET VOLUME 10.3 fL (7.4-10.4); MONOCYTES 17.2 % (2-11); NEUTROPHILS 66.1 % (40-80); RBC 3.18 10x6/uL (4.00-5.40); RDW 14.8 % (11.5-14.5); WBC 10.1 10x3/uL (4.8-10.8)
[2019-07-07 05:36] LABS: PLATELET COUNT 150 10x3/uL (130-400)
[2019-07-07 05:54] LABS: ANION GAP 10.6 mmol/L (8-16); BILIRUBIN - TOTAL 2.8 mg/dL (0.2-1.3); CALCIUM 8.4 mg/dL (8.5-10.1); CREATININE - SERUM 1.4 mg/dL (0.6-1.3); POTASSIUM - SERUM 3.6 mmol/L (3.5-5.1)
[2019-07-07 08:06] VITALS: BP 125/51
--- NOTE | 2019-07-07 08:38 | NUR ---
RECIEVED REPORT. PATIENT IS SITTING UP IN BED, EATTING BREAKFAST. DENIES ANY NEEDS AT THIS TIME. SHE HAS VOIDED SINCE REMOVAL OF DO YESTERDAY.
[2019-07-07 11:47] VITALS: BP 123/55
--- NOTE | 2019-07-07 13:57 | NUR ---
OT NOTE: (DOS 07/05/19) PT COMPLETED BED MOB SUPINE TO SIT WITH CGA. PT COMPLETED ADL MOB WITH RW REQUIRED CGA. PT COMPLETED TOILETING WITH SBA. PT DID VERY WELL . [phone] THANK YOU,NATALEE FINLEY
--- NOTE | 2019-07-07 15:22 | NUR ---
FAMILY - AYRAN BABAKTOMI(DAUGHTER)[phone],DELLA HILLIARDTOMI(SON IN LAW)[phone]
[2019-07-07 15:55] VITALS: BP 122/60
--- NOTE | 2019-07-07 19:10 | NUR ---
AWKE IN BED DENIES NEEDS BED IS LOW AND LOCKED CALL LIGHT IS WITH PT USING BED ALARM FOR SAFTY
[2019-07-07 20:30] VITALS: BP 124/54
--- NOTE | 2019-07-07 22:54 | NUR ---
RESTING QUIETLY AFTER ZOFRAN AND ASSISTANCE TO RESTROOM
[2019-07-08 00:30] VITALS: BP 115/46
--- NOTE | 2019-07-08 04:00 | NUR ---
I have reviewed this patient and I concur with the Shift Assessment completed by the Licensed Practical Nurse today this shift.
[2019-07-08 04:30] VITALS: BP 123/32
[2019-07-08 08:43] VITALS: BP 109/47
[2019-07-08 11:46] VITALS: BP 130/65
--- NOTE | 2019-07-08 12:34 | NUR ---
OT NOTE: PT ALERT SITTING UP IN BED. ASSISTED PT TO EOB WITH MIN ASSIST. PT REMAINS SOMEWHAT CONFUSED. SHE IS ORIENTED X 3, BUT DIFFICULTY REMEMBERING THINGS JUST TOLD TO HER. MOD ASSIST TO ZAID SOCKS; MIN ASSIST TO ZAID GOWN. PT PERFORMED WELL WITH AMBULATION OUTSIDE ROOM WITH WALKER TO IMPROVE FUNCTIONAL ENDURANCE. REQUIRED MIN ASSIST AND WALKER TO AMB TO BATHROOM; MIN ASSIST FOR TOILET HYGIENE; IN ROOM AMBULATION TO SINK WITH MIN ASSIST; MIN ASSIST WITH GROOMING. MOD ASSIST WITH BED MOB JUDI GRANT, OTR/L [id number]
--- NOTE | 2019-07-08 12:38 | NUR ---
OT NOTE ADDENDUM: PT IS DOING WELL WITH AMBULATION AND MOBILITY, HOWEVER, SHE DOES REMAIN VERY WEAK AND DECONDITIONED. ALSO REQUIRES EXTENSIVE ASSIST WITH ADLS. RECOMMEND IP REHAB TO ALLOW PT TO RETURN HOME TO [facility]. JUDI GRANT, OTR/L
--- NOTE | 2019-07-08 14:19 | NUR ---
I have reviewed this patient and I concur with the Shift Assessment completed by the Licensed Practical Nurse today this shift.
--- NOTE | 2019-07-08 14:49 | NUR ---
Rehab Note- Received voicemail from Laila with [facility] with notification to intent to deny an inpatient acute rehab stay. Peer to Peer can be done by tomorrow 07/09/2019 @ noon by calling [phone], Courseload phone # is [phone]. Reference #[id number]. Spoke with KELLY Torres. Thank you for this referral! Mariajose Logan RN Clinical Liaison, [facility] Rehab
--- NOTE | 2019-07-08 15:21 | NUR ---
PT RESTING IN BED A/OX4 NO S/S OF DISTRESS AT THIS TIME. BED LOW, AT BEDSIDE, CALL LIGHT WITHIN REACH. WILL CONTINUE TO MONITOR.
[2019-07-08 15:47] VITALS: BP 111/57
[2019-07-08 20:00] VITALS: BP 123/56
[2019-07-09 00:55] VITALS: BP 135/61
[2019-07-09 04:42] VITALS: BP 120/52
[2019-07-09 06:32] LABS: HEMATOCRIT 28.6 % (36.0-48.0); HEMOGLOBIN 9.7 g/dL (12-16); MCH 30.1 pg (26.0-34.0); MCHC 33.9 g/dL (31.0-37.0); MCV 88.8 fL (80.0-100.0); MEAN PLATELET VOLUME 9.8 fL (7.4-10.4); PLATELET COUNT 166 10x3/uL (130-400); RBC 3.22 10x6/uL (4.00-5.40); RDW 15.2 % (11.5-14.5); WBC 9.2 10x3/uL (4.8-10.8)
[2019-07-09 06:37] LABS: ANION GAP 8.6 mmol/L (8-16); CALCIUM 7.9 mg/dL (8.5-10.1); CARBON DIOXIDE 27.9 mmol/L (21.0-32.0); CREATININE - SERUM 1.7 mg/dL (0.6-1.3); POTASSIUM - SERUM 3.5 mmol/L (3.5-5.1)
--- NOTE | 2019-07-09 08:37 | MORECARE ---
CASE MANAGEMENT DISCHARGE SUMMARY PATIENT: MOHINI AUGUSTIN UNIT: [id number] ADM DATE: 07/02/19 AGE: 74 : 43 SEX: F ROOM/BED: D.2102 AUTHOR: ROBIDOC PHYSICIAN: REFERRING PHYSICIAN: LUKE MARCOS MD DATE OF SERVICE: 07/09/19 Discharge Plan Patient Name: MOHINI AUGUSTIN Facility: [facility]:[place] : 1945 Planned Disposition: Home with Home Health Anticipated Discharge Date: 07/09/19 Discharge Date: Expected LOS: 7 Initial Reviewer: [id number] Initial Review Date: 07/05/2019 Generated: 07/09/19 9:37 am Comments DCP- Discharge Planning Updated by [id number]: Bree Ghosh on 07/05/19 11:[address] Patient Name: MOHINI AUGUSTIN Admission Status: ER Accout number: [id number] Admission Date: 07-02-2019 : 1945 Admission Diagnosis: Attending: LUKE MARCOS Current LOS: 3 Anticipated DC Date: Planned Disposition: Inpatient Rehab Primary Insurance: [employer] MEDICARE PPO or HMO Discharge Planning Comments: CM MET WITH PATIENT AFTER OBTAINING VERBAL CONSENT. PATIENT PLANS TO DC TO [facility] SOON. IMM SIGNED. FAMILY AT BEDSIDE. CM TO FOLLOW AND ASSIST NEEDED. Director Of Sales And Marketing: Bree Ghosh DCPIA - Discharge Planning Initial Assessment Updated by [id number]: Bree Ghosh on 07/05/19 12:31 pm * Is the patient Alert and Oriented? Yes * PCP ROWDY * [facility]acy [facility] * Preadmission Environment Home with Family * ADLs Independent * Other Equipment 02, [facility] WITH [facility] [place] * Community resources currently utilized None * Additional services required to return to the preadmission environment? Yes * Can the patient safely return to the preadmission environment? Yes * Has this patient been hospitalized within the prior 30 days at any hospital? No Coverage Notice Reviewer: [id number] - Bree Ghosh Notice Issued Date-Time: 07/05/2019 12:30 Notice Type: IM Discharge Notice Notice Delivered To: Patient Relationship to Patient: Hand I Thermal Cutter Name: Delivery Method: HAND - Hand Delivered Gisela Days: Prior Verbal Notification: Recipient Understood Notice: Yes Recipient Signature: Yes Med Rec Note Co-signed by Attending: Coverage Notice Comment: Last DP export: 07/05/19 11:34 a Patient Name: MOHINI AUGUSTIN Page [id number] at 0837 All edits/amendments must be made on the electronic document DICTATION DATE: 07/09/19835 WELL FLOW OPERATOR: ETIENNE 07/09/19835 RPT#: [id number] DC DATE: STATUS: ADM IN [facility] [address] [place] [address] END OF REPORT
--- NOTE | 2019-07-09 08:45 | MORECARE ---
CASE MANAGEMENT DISCHARGE SUMMARY PATIENT: MOHINI AUGUSTIN UNIT: [id number] ADM DATE: 07/02/19 AGE: 74 : 43 SEX: F ROOM/BED: D.2109 AUTHOR: ROBI,DOC PHYSICIAN: REFERRING PHYSICIAN: LUKE MARCOS MD DATE OF SERVICE: 07/09/19 Discharge Plan Patient Name: MOHINI AUGUSTIN Facility: [facility]:[place] : 1945 Planned Disposition: Home with Home Health Anticipated Discharge Date: 07/09/19 Discharge Date: Expected LOS: 7 Initial Reviewer: [id number] Initial Review Date: 07/05/2019 Generated: 07/09/19 9:44 am Comments DCP- Discharge Planning Updated by [email or web address]: Geremias Diego on 07/09/19 7:[address] Patient Name: MOHINI AUGUSTIN Encounter No: [id number] : 1945 Primary Insurance: AETNA MEDICARE PPO or HMO Anticipated DC Date: 07-09-2019 Planned Disposition: Home with Home Health External Planned Provider: [facility] DCP follow-up note: LATE ENTRY FROM 07-08-19, APPROXIMATELY 1700 HOURS; CM SPOKE TO [facility] INPATIENT REHAB, PT'S INSURANCE DECLINED INPATIENT REHAB. CM MET WITH PT AND FAMILY IN ROOM TO DISCUSS DISCHARGE PLANNING. PT GAVE PERMISSION TO DISCUSS WITH ALL FAMILY PRESENT. CM DISCUSSED INSURANCE DENIAL OF INPATIENT REHAB DUE TO HIGH LEVEL OF FUNCTIONING. CM DISCUSSED AVAILABILITY OF LONG-TERM REHAB, OUTPATIENT REHAB, HOME HEALTH AND MEDICAL EQUIPMENT. PT'S FAMILY ASKED TO SPEAK ALONE. CM LEFT AND RETURNED APPROXIMATELY 45 MINUTES LATER. PT AND SPOUSE HAVE DECIDED THAT THEY WILL GO HOME WITH [facility] FOR THERAPY SERVICES, CHOICE SIGNED. CM PROVIDED PT WITH INFORMATION TO "[facility]" REFERRAL SERVICE AND CONTACT INFORMATION TO [facility] ON [place] TO INQUIRE REGARDING HEALTH AND SAFETY SPECIALIST SUNG FUNDING. PT AND SPOUSE DENY FURTHER NEEDS FOR DISCHARGE HOME. PT PLANS TO DISCHARGE HOME WITH ASSISTANCE OF SPOUSE, PT WOULD LIKE HOME HEALTH WITH [facility], CM TO ARRANGE WITH PHYSICIAN AGREEMENT AND ORDERS FOR HOME HEALTH. CM TO CONTINUE TO FOLLOW AND ASSIST NEEDED. Geremias Diego, CASE MANAGEMENT DCP- Discharge Planning Updated by [email or web address]: Bree Ghosh on 07/05/19 11:[address] Patient Name: MOHINI AUGUSTIN Admission Status: ER Accout number: [id number] Admission Date: 07-02-2019 : 1945 Admission Diagnosis: Attending: LUKE MARCOS Current LOS: 3 Anticipated DC Date: Planned Disposition: Inpatient Rehab Primary Insurance: AETNA MEDICARE PPO or HMO Discharge Planning Comments: CM MET WITH PATIENT AFTER OBTAINING VERBAL CONSENT. PATIENT PLANS TO DC TO [facility] SOON. IMM SIGNED. FAMILY AT BEDSIDE. CM TO FOLLOW AND ASSIST NEEDED. Clerical Associate: Bree Ghosh DCPIA - Discharge Planning Initial Assessment Updated by [id number]: Bree Ghosh on 07/05/19 12:31 pm * Is the patient Alert and Oriented? Yes * PCP ROWDY * Pharmacy [facility] * Preadmission Environment Home with Family * ADLs Independent * Other Equipment 02, NEBS WITH [facility] * Community resources currently utilized None * Additional services required to return to the preadmission environment? Yes * Can the patient safely return to the preadmission environment? Yes * Has this patient been hospitalized within the prior 30 days at any hospital? No External Providers External Provider: [facility] Next Contact Date: 07/09/2019 Service Request Date: Service Type: Resolution: Reviewer: Comments: Coverage Notice Reviewer: [id number] - Bree Davina Notice Issued Date-Time: 07/05/2019 12:30 Notice Type: IM Discharge Notice Notice Delivered To: Patient Relationship to Patient: Tree Wrapper Name: Delivery Method: HAND - Hand Delivered Gisela Days: Prior Verbal Notification: Recipient Understood Notice: Yes Recipient Signature: Yes Med Rec Note Co-signed by Attending: Coverage Notice Comment: Last DP export: 07/09/19 7:37 am Patient Name: MOHINI AUGUSTIN Page [id number] at 0845 All edits/amendments must be made on the electronic document DICTATION DATE: 07/09/19843 PROBATION WORKER: ETIENNE 07/09/19843 RPT#: [id number] DC DATE: STATUS: ADM IN [facility] [address] [place] [address] END OF REPORT
[2019-07-09 09:09] LABS: APTT 38.6 SECONDS (22.8-39.4); INR 1.52 (0.85-1.17); PROTIME 18.1 SECONDS (11.6-15.0)
[2019-07-09 09:58] VITALS: BP 120/37
[2019-07-09 10:42] LABS: ANISOCYTOSIS OCC; BASOPHILS 1 % (0-2); EOSINOPHILS 1 % (0-7); LYMPHOCYTES 10 % (15-50); MONOCYTES 17 % (2-11); NEUTROPHILS 70 % (40-80); PLATELET ESTIMATE NORMAL; SMUDGE CELLS 1+
--- NOTE | 2019-07-09 12:26 | NUR ---
OT NOTE: PT DOING WELL WITH AMBULATION. TODAY SHE WAS ABLE TO AMBULATE GREATER THAN 200 FT, HOWEVER, SHE REQUIRES MIN/MOD ASSIST WITH SUPINE TO SIT AND MAX ASSIST FOR SIT TO SUPINE SHE IS UNABLE TO BRING LEGS UP ONTO BED; SHE REQUIRES MIN/MOD ASSIST TO SIT DOWN ON TOILET AND MIN ASSIST TO STAND UP; MOD ASSIST FOR TOILET HYGIENE FOLLOWING BM; MIN ASSIST WITH UE DRESSING AND MOD ASSIST TO ZAID SOCKS. PT IS SLOW TO PROCESS AND IS RESISTANT TO SIT UP IN CHAIR. ENCOURAGED TO STAY OUT OF BED BUT STATED THAT SHE HAD TO REST. CONTINUE TO RECOMMEND IP REHAB PRIOR TO DC HOME JUDI GRANT, OTR/L [phone]
[2019-07-09 12:56] VITALS: BP 129/59
--- NOTE | 2019-07-09 13:01 | NUR ---
Nutrition Follow-up: Per chart review, pt c/o distended abdomen and needing to have a BM; noted paracentesis scheduled for tomorrow. Ate ~25% of breakfast this AM. tomorrow. Ate ~25% of breakfast this AM. Diet: Diabetic, Low Na Wt: 165# (07/08); 160# (); 147# (07/02 - stated) Labs noted: Na 128, Glu 115, Ca 7.9 Meds noted: Lasix, Lactulose, MagOx, Oscal, Protonix, KCl -Continue current diet as tolerated. -Offer Glucerna with meals. -Monitor wt. -RD following.
--- NOTE | 2019-07-09 13:08 | MORECARE ---
CASE MANAGEMENT DISCHARGE SUMMARY PATIENT: MOHINI AUGUSTIN UNIT: [id number] ADM DATE: 07/02/19 AGE: 74 : 43 SEX: F ROOM/BED: D.2108 AUTHOR: ROBI,DOC PHYSICIAN: REFERRING PHYSICIAN: LUKE MARCOS MD DATE OF SERVICE: 07/09/19 Discharge Plan Patient Name: MOHINI AUGUSTIN Facility: [facility]:[place] : 1945 Planned Disposition: Home with Home Health Anticipated Discharge Date: 07/09/19 Discharge Date: Expected LOS: 7 Initial Reviewer: [id number] Initial Review Date: 07/05/2019 Generated: 07/09/19 2:08 pm Comments DCP- Discharge Planning Updated by [id number]: Geremias Diego on 07/09/19 7:[address] Patient Name: MOHINI AUGUSTIN Encounter No: [id number] : 1945 Primary Insurance: AETNA MEDICARE PPO or HMO Anticipated DC Date: 07-09-2019 Planned Disposition: Home with Home Health External Planned Provider: [facility] DCP follow-up note: LATE ENTRY FROM 07-08-19, APPROXIMATELY 1700 HOURS; CM SPOKE TO [facility] INPATIENT REHAB, PT'S INSURANCE DECLINED INPATIENT REHAB. CM MET WITH PT AND FAMILY IN ROOM TO DISCUSS DISCHARGE PLANNING. PT GAVE PERMISSION TO DISCUSS WITH ALL FAMILY PRESENT. CM DISCUSSED INSURANCE DENIAL OF INPATIENT REHAB DUE TO HIGH LEVEL OF FUNCTIONING. CM DISCUSSED AVAILABILITY OF LONG-TERM REHAB, OUTPATIENT REHAB, HOME HEALTH AND MEDICAL EQUIPMENT. PT'S FAMILY ASKED TO SPEAK ALONE. CM LEFT AND RETURNED APPROXIMATELY 45 MINUTES LATER. PT AND SPOUSE HAVE DECIDED THAT THEY WILL GO HOME WITH [facility] FOR THERAPY SERVICES, CHOICE SIGNED. CM PROVIDED PT WITH INFORMATION TO "A PL[facility]OM" REFERRAL SERVICE AND CONTACT INFORMATION TO [facility] ON [place] TO INQUIRE REGARDING PROPELLANT ASSEMBLER SUNG FUNDING. PT AND SPOUSE DENY FURTHER NEEDS FOR DISCHARGE HOME. PT PLANS TO DISCHARGE HOME WITH ASSISTANCE OF SPOUSE, PT WOULD LIKE HOME HEALTH WITH [facility], CM TO ARRANGE WITH PHYSICIAN AGREEMENT AND ORDERS FOR HOME HEALTH. CM TO CONTINUE TO FOLLOW AND ASSIST NEEDED. Geremias Diego, CASE MANAGEMENT DCP- Discharge Planning Updated by [email or web address]: Bree Ghosh on 07/05/19 11:[address] Patient Name: MOHINI AUGUSTIN Admission Status: ER Accout number: [id number] Admission Date: 07-02-2019 : 1945 Admission Diagnosis: Attending: LUKE MARCOS Current LOS: 3 Anticipated DC Date: Planned Disposition: Inpatient Rehab Primary Insurance: AETNA MEDICARE PPO or HMO Discharge Planning Comments: CM MET WITH PATIENT AFTER OBTAINING VERBAL CONSENT. PATIENT PLANS TO DC TO [facility] SOON. IMM SIGNED. FAMILY AT BEDSIDE. CM TO FOLLOW AND ASSIST NEEDED. Management Specialist: Bree Ghosh DCPIA - Discharge Planning Initial Assessment Updated by [email or web address]: Bree Ghosh on 07/05/19 12:31 pm * Is the patient Alert and Oriented? Yes * PCP ROWDY * [facility] * Preadmission Environment Home with Family * ADLs Independent * Other Equipment 02, NEBS WITH [employer] * Community resources currently utilized None * Additional services required to return to the preadmission environment? Yes * Can the patient safely return to the preadmission environment? Yes * Has this patient been hospitalized within the prior 30 days at any hospital? No External Providers External Provider: [facility] Next Contact Date: Service Request Date: Service Type: Resolution: Reviewer: Comments: [facility] Next Contact Date: 07/09/2019 Service Request Date: Service Type: Resolution: Reviewer: Comments: Coverage Notice Reviewer: [id number] Ainsley Ghosh Notice Issued Date-Time: 07/05/2019 12:30 Notice Type: IM Discharge Notice Notice Delivered To: Patient Relationship to Patient: Surgical Services Manager Name: Delivery Method: HAND - Hand Delivered Gisela Days: Prior Verbal Notification: Recipient Understood Notice: Yes Recipient Signature: Yes Med Rec Note Co-signed by Attending: Coverage Notice Comment: Reviewer: [id number] Diego Notice Issued Date-Time: 07/09/2019 17:02 Notice Type: IM Discharge Notice Notice Delivered To: Family Member Relationship to Patient: Spouse Surgical Services Manager Name: TONY AUGUSTIN Delivery Method: HAND - Hand Delivered Gisela Days: Prior Verbal Notification: Recipient Understood Notice: Yes Recipient Signature: Yes Med Rec Note Co-signed by Attending: Coverage Notice Comment: Reviewer: LESLY Diego Notice Issued Date-Time: 07/08/2019 17:02 Notice Type: Patient Choice Letter Notice Delivered To: Family Member Relationship to Patient: Spouse Surgical Services Manager Name: TONY AUGUSTIN Delivery Method: HAND - Hand Delivered Gisela Days: Prior Verbal Notification: Recipient Understood Notice: Yes Recipient Signature: Yes Med Rec Note Co-signed by Attending: Coverage Notice Comment: [facility] Last DP export: 07/09/19 7:45 am Patient Name: MOHINI AUGUSTIN Page [id number] at 1308 All edits/amendments must be made on the electronic document DICTATION DATE: 07/09/19 1308 BEAMER HELPER: ETIENNE 07/09/19 1308 RPT#: [id number] DC DATE: STATUS: ADM IN [facility] [address] [place] [address] END OF REPORT
--- NOTE | 2019-07-09 13:31 | MORECARE ---
CASE MANAGEMENT DISCHARGE SUMMARY PATIENT: MOHINI AUGUSTIN UNIT: [id number] ADM DATE: 07/02/19 AGE: 74 : 43 SEX: F ROOM/BED: D.2105 AUTHOR: ROBI,DOC PHYSICIAN: REFERRING PHYSICIAN: LUKE MARCOS MD DATE OF SERVICE: 07/09/19 Discharge Plan Patient Name: MOHINI AGUUSTIN Facility: [facility]:[place] : 1945 Planned Disposition: Home with Home Health Anticipated Discharge Date: 07/09/19 Discharge Date: Expected LOS: 7 Initial Reviewer: [id number] Initial Review Date: 07/05/2019 Generated: 07/09/19 2:30 pm Comments DCP- Discharge Planning Updated by [id number]: Geremias Diego on 07/09/19 12:[address] Patient Name: MOHINI AUGUSTIN Encounter No: [id number] : 1945 Primary Insurance: AETNA MEDICARE PPO or HMO Anticipated DC Date: 07-09-2019 Planned Disposition: Home with Home Health External Planned Provider: [facility] DCP follow-up note: LATE ENTRY FROM 07-08-19, APPROXIMATELY 1700 HOURS; CM SPOKE TO [facility] INPATIENT REH[facility], PT'S INSURANCE DECLINED INPATIENT REHAB. CM MET WITH PT AND FAMILY IN ROOM TO DISCUSS DISCHARGE PLANNING. PT GAVE PERMISSION TO DISCUSS WITH ALL FAMILY PRESENT. CM DISCUSSED INSURANCE DENIAL OF INPATIENT REHAB DUE TO HIGH LEVEL OF FUNCTIONING. CM DISCUSSED AVAILABILITY OF SENIOR LIVING REHAB, OUTPATIENT REHAB, HOME HEALTH AND MEDICAL EQUIPMENT. PT'S FAMILY ASKED TO SPEAK ALONE. CM LEFT AND RETURNED APPROXIMATELY 45 MINUTES LATER. PT AND SPOUSE HAVE DECIDED THAT THEY WILL GO HOME WITH [facility] FOR THERAPY SERVICES, CHOICE SIGNED. CM PROVIDED PT WITH INFORMATION TO "[facility]" REFERRAL SERVICE AND CONTACT INFORMATION TO [facility] ON [place] TO INQUIRE REGARDING STREET LIGHT INSPECTOR SUNG FUNDING. PT AND SPOUSE DENY FURTHER NEEDS FOR DISCHARGE HOME. PT PLANS TO DISCHARGE HOME WITH ASSISTANCE OF SPOUSE, PT WOULD LIKE HOME HEALTH WITH [facility], CM TO ARRANGE WITH PHYSICIAN AGREEMENT AND ORDERS FOR HOME HEALTH. CM TO CONTINUE TO FOLLOW AND ASSIST NEEDED. Geremias Diego, CASE MANAGEMENT Appended by Geremias Diego on 07/09/2019 13:29 SEMICONDUCTOR WAFERS ETCH OPERATOR: CM RECEIVED HOME HEALTH ORDER, CALLED AND SPOKE TO ESTEBAN AT [facility], THEY ARE OUT OF PT'S INSURANCE NETWORK. CM DISCUSSED OTHER HOME HEALTH AGENCIES IN [place], PT HAS NO PROVIDER CHOICE IF [facility] IS OUT OF NETWORK. CHOICE WAS PREVIOUSLY SIGNED. CM CALLED [facility], , SPOKE TO LINETTE AND PROVIDED REFERRAL INFORMATION, FAXED REFERRAL TO [facility] AT [phone]. [facility] TO ENSURE THEY ARE IN NETWORK WITH PT'S INSURANCE AND NOTIFY CM SHORTLY. PT PLANS TO DISCHARGE HOME WITH ASSISTANCE OF SPOUSE, CM WAITING CALL FROM [facility] TO ENSURE THEY ARE IN PT'S INSURANCE NETWORK. CM TO CONTINUE TO FOLLOW AND ASSIST NEEDED. Geremias Diego, CASE MANAGEMENT DCP- Discharge Planning Updated by [id number]: Bree Ghosh on 07/05/19 11:[address] Patient Name: MOHINI AUGUSTIN Admission Status: ER Accout number: [id number] Admission Date: 07-02-2019 : 1945 Admission Diagnosis: Attending: LUKE MARCOS Current LOS: 3 Anticipated DC Date: Planned Disposition: Inpatient Rehab Primary Insurance: AETNA MEDICARE PPO or HMO Discharge Planning Comments: CM MET WITH PATIENT AFTER OBTAINING VERBAL CONSENT. PATIENT PLANS TO DC TO [facility] SOON. IMM SIGNED. FAMILY AT BEDSIDE. CM TO FOLLOW AND ASSIST NEEDED. Toy Assembly Supervisor: Bree Ghosh DCPIA - Discharge Planning Initial Assessment Updated by [id number]: Bree Ghosh on 07/05/19 12:31 pm * Is the patient Alert and Oriented? Yes * PCP ROWDY * [facility] * Preadmission Environment Home with Family * ADLs Independent * Other Equipment 02, [facility] * Community resources currently utilized None * Additional services required to return to the preadmission environment? Yes * Can the patient safely return to the preadmission environment? Yes * Has this patient been hospitalized within the prior 30 days at any hospital? No Coverage Notice Reviewer: [id number] Ainsley Ghosh Notice Issued Date-Time: 07/05/2019 12:30 Notice Type: IM Discharge Notice Notice Delivered To: Patient Relationship to Patient: Certified Adapted Physical Educator Name: Delivery Method: HAND - Hand Delivered Gisela Days: Prior Verbal Notification: Recipient Understood Notice: Yes Recipient Signature: Yes Med Rec Note Co-signed by Attending: Coverage Notice Comment: Reviewer: [id number] Diego Notice Issued Date-Time: 07/09/2019 17:02 Notice Type: IM Discharge Notice Notice Delivered To: Family Member Relationship to Patient: Spouse Certified Adapted Physical Educator Name: TONY AUGUSTIN Delivery Method: HAND - Hand Delivered Gisela Days: Prior Verbal Notification: Recipient Understood Notice: Yes Recipient Signature: Yes Med Rec Note Co-signed by Attending: Coverage Notice Comment: Reviewer: [id number] Diego Notice Issued Date-Time: 07/08/2019 17:02 Notice Type: Patient Choice Letter Notice Delivered To: Family Member Relationship to Patient: Spouse Certified Adapted Physical Educator Name: TONY AUGUSTIN Delivery Method: HAND - Hand Delivered Gisela Days: Prior Verbal Notification: Recipient Understood Notice: Yes Recipient Signature: Yes Med Rec Note Co-signed by Attending: Coverage Notice Comment: [facility] Last DP export: 07/09/19 12:08 pm Patient Name: MOHINI AUGUSTIN Page 23216 at 1331 All edits/amendments must be made on the electronic document DICTATION DATE: 07/09/19 1330 TRANSMISSION AND PROTECTION ENGINEER: ETIENNE 07/09/19 1330 RPT#: [id number] DC DATE: STATUS: ADM IN [place] [id number] [place] [address] END OF REPORT
--- NOTE | 2019-07-09 17:43 | MORECARE ---
CASE MANAGEMENT DISCHARGE SUMMARY PATIENT: MOHINI AUGUSTIN UNIT: [id number] ADM DATE: 07/02/19 AGE: 74 : 43 SEX: F ROOM/BED: D.2108 AUTHOR: ROBI,DOC PHYSICIAN: REFERRING PHYSICIAN: LUKE MARCOS MD DATE OF SERVICE: 07/09/19 Discharge Plan Patient Name: MOHINI AUGUSTIN Facility: [facility]:[place] : 1945 Planned Disposition: Home with Home Health Anticipated Discharge Date: 07/10/19 Discharge Date: Expected LOS: 8 Initial Reviewer: [id number] Initial Review Date: 07/05/2019 Generated: 07/09/19 6:42 pm Comments DCP- Discharge Planning Updated by [id number]: Geremias Toney on 07/09/19 4:[address] Patient Name: MOHINI AUGUSTIN Encounter No: [id number] : 1945 Primary Insurance: AETNA MEDICARE PPO or HMO Anticipated DC Date: 07-09-2019 Planned Disposition: Home with Home Health External Planned Provider: [facility] DCP follow-up note: LATE ENTRY FROM 07-08-19, APPROXIMATELY 1700 HOURS; CM SPOKE TO [facility] INPATIENT REH[facility], PT'S INSURANCE DECLINED INPATIENT REHAB. CM MET WITH PT AND FAMILY IN ROOM TO DISCUSS DISCHARGE PLANNING. PT GAVE PERMISSION TO DISCUSS WITH ALL FAMILY PRESENT. CM DISCUSSED INSURANCE DENIAL OF INPATIENT REHAB DUE TO HIGH LEVEL OF FUNCTIONING. CM DISCUSSED AVAILABILITY OF [facility], OUTPATIENT REHAB, HOME HEALTH AND MEDICAL EQUIPMENT. PT'S FAMILY ASKED TO SPEAK ALONE. CM LEFT AND RETURNED APPROXIMATELY 45 MINUTES LATER. PT AND SPOUSE HAVE DECIDED THAT THEY WILL GO HOME WITH [facility] FOR THERAPY SERVICES, CHOICE SIGNED. CM PROVIDED PT WITH INFORMATION TO "A PLACE FOR MOM" REFERRAL SERVICE AND CONTACT INFORMATION TO [facility] ON [address] TO INQUIRE REGARDING PASTRY DECORATOR SUGN FUNDING. PT AND SPOUSE DENY FURTHER NEEDS FOR DISCHARGE HOME. PT PLANS TO DISCHARGE HOME WITH ASSISTANCE OF SPOUSE, PT WOULD LIKE HOME HEALTH WITH [facility], CM TO ARRANGE WITH PHYSICIAN AGREEMENT AND ORDERS FOR HOME HEALTH. CM TO CONTINUE TO FOLLOW AND ASSIST NEEDED. Geremias Toney, CASE MANAGEMENT Appended by Geremias Toney on 07/09/2019 13:29 SUPERVISOR PASTE PLANT: CM RECEIVED HOME HEALTH ORDER, CALLED AND SPOKE TO ESTEBAN AT [facility], THEY ARE OUT OF PT'S INSURANCE NETWORK. CM DISCUSSED OTHER HOME HEALTH AGENCIES IN [place], PT HAS NO PROVIDER CHOICE IF [facility]. CHOICE WAS PREVIOUSLY SIGNED. CM CALLED [facility], , SPOKE TO LINETTE AND PROVIDED REFERRAL INFORMATION, FAXED REFERRAL TO [facility] AT [phone]. [facility] TO ENSURE THEY ARE IN NETWORK WITH PT'S INSURANCE AND NOTIFY CM SHORTLY. PT PLANS TO DISCHARGE HOME WITH ASSISTANCE OF SPOUSE, CM WAITING CALL FROM [facility] TO ENSURE THEY ARE IN PT'S INSURANCE NETWORK. CM TO CONTINUE TO FOLLOW AND ASSIST NEEDED. Geremias Toney, CASE MANAGEMENT Appended by Geremias Toney on 07/09/2019 17:35 SUPERVISOR PASTE PLANT: CM SPOKE TO LINETTE OF [facility], THEY WILL ACCEPT FOR HOME HEALTH AND ARE IN NETWORK FOR HOME HEALTH; PT ON SCHEDULE NOW FOR MONDAY. PT'S SPOUSE NOTIFIED. FOR DISCHARGE, NOTIFY [facility], , FAX DISCHARGE INFORMATION TO [facility] AT [phone]. GEREMIAS TONEY, CASE MANAGEMENT DCP- Discharge Planning Updated by [id number]: Bree Ghosh on 07/05/19 11:[address] Patient Name: MOHINI AUGUSTIN Admission Status: ER Accout number: [id number] Admission Date: 07-02-2019 : 1945 Admission Diagnosis: Attending: LUKE MARCOS Current LOS: 3 Anticipated DC Date: Planned Disposition: Inpatient Rehab Primary Insurance: AETNA MEDICARE PPO or HMO Discharge Planning Comments: CM MET WITH PATIENT AFTER OBTAINING VERBAL CONSENT. PATIENT PLANS TO DC TO [facility] SOON. IMM SIGNED. FAMILY AT BEDSIDE. CM TO FOLLOW AND ASSIST NEEDED. Label Printing Machinist: Bree Ghosh DCPIA - Discharge Planning Initial Assessment Updated by [id number]: Bree Ghosh on 07/05/19 12:31 pm * Is the patient Alert and Oriented? Yes * PCP ROWDY * Pharmacy [facility] * Preadmission Environment Home with Family * ADLs Independent * Other Equipment 02, NEBS WITH [facility] * Community resources currently utilized None * Additional services required to return to the preadmission environment? Yes * Can the patient safely return to the preadmission environment? Yes * Has this patient been hospitalized within the prior 30 days at any hospital? No Coverage Notice Reviewer: [id number] Ainsley Ghosh Notice Issued Date-Time: 07/05/2019 12:30 Notice Type: IM Discharge Notice Notice Delivered To: Patient Relationship to Patient: Family Law Attorney Name: Delivery Method: HAND - Hand Delivered Gisela Days: Prior Verbal Notification: Recipient Understood Notice: Yes Recipient Signature: Yes Med Rec Note Co-signed by Attending: Coverage Notice Comment: Reviewer: [id number] Toney Notice Issued Date-Time: 07/09/2019 17:02 Notice Type: IM Discharge Notice Notice Delivered To: Family Member Relationship to Patient: Spouse Family Law Attorney Name: TONY AUGUSTIN Delivery Method: HAND - Hand Delivered Gisela Days: Prior Verbal Notification: Recipient Understood Notice: Yes Recipient Signature: Yes Med Rec Note Co-signed by Attending: Coverage Notice Comment: Reviewer: LESLY Toney Notice Issued Date-Time: 07/08/2019 17:02 Notice Type: Patient Choice Letter Notice Delivered To: Family Member Relationship to Patient: Spouse Family Law Attorney Name: TONY AUGUSTIN Delivery Method: HAND - Hand Delivered Gisela Days: Prior Verbal Notification: Recipient Understood Notice: Yes Recipient Signature: Yes Med Rec Note Co-signed by Attending: Coverage Notice Comment: [facility] Last DP export: 07/09/19 12:31 pm Patient Name: MOHINI AUGUSTIN Page 14856 at 1743 All edits/amendments must be made on the electronic document DICTATION DATE: 07/09/191741 SALES INTERN: ETIENNE 07/09/191741 RPT#: [id number] DC DATE: STATUS: ADM IN [facility] [address] [place] [address] END OF REPORT
[2019-07-09 18:33] VITALS: BP 150/65
--- NOTE | 2019-07-09 18:44 | NUR ---
OT NOTE: PT COMPLETED BUE AROM EXS. PT COMPLETED FACE WASH WITH SET UP. PT COMPLETED HAND HYGIENE WITH SET UP. [phone] THANK YOU,NATALEE FINLEY
[2019-07-09 20:00] VITALS: BP 126/63
--- NOTE | 2019-07-09 21:45 | NUR ---
EVENING ROUNDS COMPLETED. AAOX3, AFVSS, PT APPEARS LETHARGIC. NO S/S OF RT DISTRESS. FSBS 120. NO INSULIN NEEDED. PT NPO AFTER MIDNIGNT. FALL PRECAUTION IN PLACE. PT DENIES ANY FURTHER NEEDS AT THIS TIME. WILL CPOC, CL WITHIN REACH.
[2019-07-10] VITALS: BP 130/54
[2019-07-10 04:00] VITALS: BP 129/51
[2019-07-10 07:29] LABS: BASOPHILS 0.3 % (0-2); EOSINOPHILS 2.3 % (0-7); HEMATOCRIT 30.3 % (36.0-48.0); HEMOGLOBIN 10.3 g/dL (12-16); IMMATURE GRANULOCYTES 0.8 % (0-5); LYMPHOCYTES 11.2 % (15-50); MCH 30.5 pg (26.0-34.0); MCV 89.6 fL (80.0-100.0); MEAN PLATELET VOLUME 11.3 fL (7.4-10.4); NEUTROPHILS 66.4 % (40-80); RBC 3.38 10x6/uL (4.00-5.40); RDW 15.7 % (11.5-14.5); WBC 11.1 10x3/uL (4.8-10.8)
[2019-07-10 07:36] LABS: PLATELET COUNT 127 10x3/uL (130-400)
[2019-07-10 07:55] LABS: ANION GAP 9.6 mmol/L (8-16); CALCIUM 8.2 mg/dL (8.5-10.1); CARBON DIOXIDE 27.8 mmol/L (21.0-32.0); CREATININE - SERUM 1.5 mg/dL (0.6-1.3); POTASSIUM - SERUM 3.4 mmol/L (3.5-5.1)
[2019-07-10 08:00] LABS: APTT 31.8 SECONDS (22.8-39.4); INR 1.5 (0.85-1.17)
[2019-07-10 09:00] VITALS: BP 116/69
[2019-07-10 12:00] VITALS: BP 94/47
--- NOTE | 2019-07-10 14:53 | NUR ---
PT RETURNED TO ROOM FROM IR. PT A&O X3. VSS. WILL CTM
--- NOTE | 2019-07-10 17:56 | NUR ---
I have reviewed this patient and I concur with the Shift Assessment completed by the Licensed Practical Nurse today this shift.
--- NOTE | 2019-07-10 20:04 | NUR ---
PT LYING IN BED AWAKE ALERT AND ORIENTED x4. NO SIGNS OF DISTRESS NOTED. RESPIRATIONS EVEN AND UNLABORED. FAMILY AT BEDSIDE. DAUGHTER IS CONCERNED ABOUT BLOOD PRESSURE. BLOOD PRESUURE IS 115/51 AT THIS TIME. PT AND FAMILY ENCOURAGED TO CALL FOR HELP WHEN NEEDED. CALL LIGHT IS WHEN IN REACH AND BED IS IN LOWEST POSITION. WILL CONTINUE TO MONITOR.
[2019-07-10 21:17] VITALS: BP 112/50
[2019-07-11 00:31] VITALS: BP 105/51
--- NOTE | 2019-07-11 01:43 | NUR ---
PT LYING N BED RESTING WITH EYES CLOSED. EASILY AWAKEN WITH VOICE STIMULATION NO SIGN OR SYMPTOMS OF DISTRESS NOTED. RESPIRATIONS EVEN AND UNLABORED. NO COMPLAINTS AT THIS TIME. PT DENIES PAIN. CALL LIGHT WITH IN REACH AND BED IS IN LOWEST POSTION. PT ENCOURAGED TO CALL FOR HELP WHEN NEEDED. WILL CONTINUE TO MONITOR
[2019-07-11 04:56] VITALS: BP 110/50
--- NOTE | 2019-07-11 06:04 | NUR ---
ASSIST PT TO RESTROOM AND BACK TO BED. BED ALARM ON AND ACTIVE FALL SOCKS ARE ON. CALL LIGHT WITH IN REACH. PT ENCOURAGED TO CALL FOR HELP WHEN GETTING IN AND OUT OF BED. WILL CONTINUE TO MONITOR
[2019-07-11 06:31] LABS: BASOPHILS 0.3 % (0-2); EOSINOPHILS 2.8 % (0-7); HEMOGLOBIN 9.9 g/dL (12-16); LYMPHOCYTES 15.2 % (15-50); MCH 30.6 pg (26.0-34.0); MCHC 34.1 g/dL (31.0-37.0); MCV 89.5 fL (80.0-100.0); MEAN PLATELET VOLUME 10.4 fL (7.4-10.4); MONOCYTES 18.7 % (2-11); RBC 3.24 10x6/uL (4.00-5.40); RDW 15.9 % (11.5-14.5); WBC 9.4 10x3/uL (4.8-10.8)
[2019-07-11 06:45] LABS: PLATELET COUNT 160 10x3/uL (130-400)
[2019-07-11 06:55] LABS: ANION GAP 9.9 mmol/L (8-16); CALCIUM 7.9 mg/dL (8.5-10.1); CARBON DIOXIDE 27.6 mmol/L (21.0-32.0); CREATININE - SERUM 1.3 mg/dL (0.6-1.3); POTASSIUM - SERUM 3.5 mmol/L (3.5-5.1)
[2019-07-11 08:04] VITALS: BP 119/57
--- NOTE | 2019-07-11 08:16 | MORECARE ---
CASE MANAGEMENT DISCHARGE SUMMARY PATIENT: MOHINI AUGUSTIN UNIT: [id number] ADM DATE: 07/02/19 AGE: 74 : 43 SEX: F ROOM/BED: D.2103 AUTHOR: ROBI,DOC PHYSICIAN: REFERRING PHYSICIAN: LUKE MARCOS MD DATE OF SERVICE: 07/11/19 Discharge Plan Patient Name: MOHINI AUGUSTIN Facility: [facility]:[place] : 1945 Planned Disposition: Nursing Home Facility Anticipated Discharge Date: 07/11/19 Discharge Date: Expected LOS: 9 Initial Reviewer: [id number] Initial Review Date: 07/05/2019 Generated: 07/11/19 9:16 am DCP- Discharge Planning Updated by [id number]: Geremias Toney on 07/09/19 4:[address] Patient Name: MOHINI AUGUSTIN Encounter No: [id number] : 1945 Primary Insurance: AETNA MEDICARE PPO or HMO Anticipated DC Date: 07-09-2019 Planned Disposition: Home with Home Health External Planned Provider: [facility] DCP follow-up note: LATE ENTRY FROM 07-08-19, APPROXIMATELY 1700 HOURS; CM SPOKE TO [facility]IENT [facility], PT'S INSURANCE DECLINED INPATIENT REHAB. CM MET WITH PT AND FAMILY IN ROOM TO DISCUSS DISCHARGE PLANNING. PT GAVE PERMISSION TO DISCUSS WITH ALL FAMILY PRESENT. CM DISCUSSED INSURANCE DENIAL OF INPATIENT REHAB DUE TO HIGH LEVEL OF FUNCTIONING. CM DISCUSSED AVAILABILITY OF PENITENTIARY REHAB, OUTPATIENT REHAB, HOME HEALTH AND MEDICAL EQUIPMENT. PT'S FAMILY ASKED TO SPEAK ALONE. CM LEFT AND RETURNED APPROXIMATELY 45 MINUTES LATER. PT AND SPOUSE HAVE DECIDED THAT THEY WILL GO HOME WITH [facility] HOME FOR THERAPY SERVICES, CHOICE SIGNED. CM PROVIDED PT WITH INFORMATION TO "[facility]" REFERRAL SERVICE AND CONTACT INFORMATION TO [facility] AGENCY ON AGING TO INQUIRE REGARDING STATE FARM AGENT SUNG FUNDING. PT AND SPOUSE DENY FURTHER NEEDS FOR DISCHARGE HOME. PT PLANS TO DISCHARGE HOME WITH ASSISTANCE OF SPOUSE, PT WOULD LIKE HOME HEALTH WITH [facility], CM TO ARRANGE WITH PHYSICIAN AGREEMENT AND ORDERS FOR HOME HEALTH. CM TO CONTINUE TO FOLLOW AND ASSIST NEEDED. Geremias Toney, CASE MANAGEMENT Appended by Geremias Toney on 07/09/2019 13:29 EMBROIDERY OPERATOR: CM RECEIVED HOME HEALTH ORDER, CALLED AND SPOKE TO ESTEBAN AT [facility], THEY ARE OUT OF PT'S INSURANCE NETWORK. CM DISCUSSED OTHER HOME HEALTH AGENCIES IN [place], PT HAS NO PROVIDER CHOICE IF [facility] IS OUT OF NETWORK. CHOICE WAS PREVIOUSLY SIGNED. CM CALLED [facility], , SPOKE TO LINETTE AND PROVIDED REFERRAL INFORMATION, FAXED REFERRAL TO [facility] AT [phone]. [facility] TO ENSURE THEY ARE IN NETWORK WITH PT'S INSURANCE AND NOTIFY CM SHORTLY. PT PLANS TO DISCHARGE HOME WITH ASSISTANCE OF SPOUSE, CM WAITING CALL FROM [facility] TO ENSURE THEY ARE IN PT'S INSURANCE NETWORK. CM TO CONTINUE TO FOLLOW AND ASSIST NEEDED. Geremias Toney, CASE MANAGEMENT Appended by Geremias Toney on 07/09/2019 17:35 EMBROIDERY OPERATOR: CM SPOKE TO LINETTE OF [facility], THEY WILL ACCEPT FOR HOME HEALTH AND ARE IN NETWORK FOR HOME HEALTH; PT ON SCHEDULE NOW FOR MONDAY. PT'S SPOUSE NOTIFIED. FOR DISCHARGE, NOTIFY [facility], , FAX DISCHARGE INFORMATION TO [facility] AT [phone]. GEREMIAS TONEY, CASE MANAGEMENT DCP- Discharge Planning Updated by [id number]: Bree Ghosh on 07/05/19 11:[address] Patient Name: MOHINI AUGUSTIN Admission Status: ER Accout number: [id number] Admission Date: 07-02-2019 : 1945 Admission Diagnosis: Attending: LUKE MARCOS Current LOS: 3 Anticipated DC Date: Planned Disposition: Inpatient Rehab Primary Insurance: AETNA MEDICARE PPO or HMO Discharge Planning Comments: CM MET WITH PATIENT AFTER OBTAINING VERBAL CONSENT. PATIENT PLANS [facility] SOON. IMM SIGNED. FAMILY AT BEDSIDE. CM TO FOLLOW AND ASSIST NEEDED. Interactive Producer: Bree Ghosh DCPIA - Discharge Planning Initial Assessment Updated by [id number]: Bree Ghosh on 07/05/19 12:31 pm * Is the patient Alert and Oriented? Yes * PCP ROWDY * Pharmacy [facility] * Preadmission Environment Home with Family * ADLs Independent * Other Equipment 02, NEBS WITH [facility] * Community resources currently utilized None * Additional services required to return to the preadmission environment? Yes * Can the patient safely return to the preadmission environment? Yes * Has this patient been hospitalized within the prior 30 days at any hospital? No Coverage Notice Reviewer: [id number] Ainsley Ghosh Notice Issued Date-Time: 07/05/2019 12:30 Notice Type: IM Discharge Notice Notice Delivered To: Patient Relationship to Patient: Waiter And Cashier Name: Delivery Method: HAND - Hand Delivered Gisela Days: Prior Verbal Notification: Recipient Understood Notice: Yes Recipient Signature: Yes Med Rec Note Co-signed by Attending: Coverage Notice Comment: Reviewer: LESLY Toney Notice Issued Date-Time: 07/09/2019 17:02 Notice Type: IM Discharge Notice Notice Delivered To: Family Member Relationship to Patient: Spouse Waiter And Cashier Name: TONY AUGUSTIN Delivery Method: HAND - Hand Delivered Gisela Days: Prior Verbal Notification: Recipient Understood Notice: Yes Recipient Signature: Yes Med Rec Note Co-signed by Attending: Coverage Notice Comment: Reviewer: LESLY Toney Notice Issued Date-Time: 07/08/2019 17:02 Notice Type: Patient Choice Letter Notice Delivered To: Family Member Relationship to Patient: Spouse Waiter And Cashier Name: TONY AUGUSTIN Delivery Method: HAND - Hand Delivered Gisela Days: Prior Verbal Notification: Recipient Understood Notice: Yes Recipient Signature: Yes Med Rec Note Co-signed by Attending: Coverage Notice Comment: [facility] Last DP export: 07/09/19 4:43 pm Patient Name: MOHINI AUGUSTIN Page [id number] at 0816 All edits/amendments must be made on the electronic document DICTATION DATE: 07/11/19815 ARTIFICIAL PEARL MAKER: ETIENNE 07/11/19815 RPT#: [id number] DC DATE: STATUS: ADM IN [facility] [address] [place] [address] END OF REPORT
--- NOTE | 2019-07-11 08:23 | MORECARE ---
CASE MANAGEMENT DISCHARGE SUMMARY PATIENT: MOHINI AUGUSTIN UNIT: [id number] ADM DATE: 07/02/19 AGE: 74 : 43 SEX: F ROOM/BED: D.2100 AUTHOR: ROBI,DOC PHYSICIAN: REFERRING PHYSICIAN: LUKE MARCOS MD DATE OF SERVICE: 07/11/19 Discharge Plan Patient Name: MOHINI AUGUSTIN Facility: [facility]:[place] : 1945 Planned Disposition: Residential Facility Anticipated Discharge Date: 07/11/19 Discharge Date: Expected LOS: 9 Initial Reviewer: [id number] Initial Review Date: 07/05/2019 Generated: 07/11/19 9:23 am DCP- Discharge Planning Updated by [email or web address]: Geremias Toney on 07/09/19 4:[address] Patient Name: MOHINI AUGUSTIN Encounter No: [id number] : 1945 Primary Insurance: AETNA MEDICARE PPO or HMO Anticipated DC Date: 07-09-2019 Planned Disposition: Home with Home Health External Planned Provider: [facility] DCP follow-up note: LATE ENTRY FROM 07-08-19, APPROXIMATELY 1700 HOURS; CM SPOKE TO [facility] INPATIENT REH[facility], PT'S INSURANCE DECLINED INPATIENT REHAB. CM MET WITH PT AND FAMILY IN ROOM TO DISCUSS DISCHARGE PLANNING. PT GAVE PERMISSION TO DISCUSS WITH ALL FAMILY PRESENT. CM DISCUSSED INSURANCE DENIAL OF INPATIENT REHAB DUE TO HIGH LEVEL OF FUNCTIONING. CM DISCUSSED AVAILABILITY OF LONG TERM REHAB, OUTPATIENT REHAB, HOME HEALTH AND MEDICAL EQUIPMENT. PT'S FAMILY ASKED TO SPEAK ALONE. CM LEFT AND RETURNED APPROXIMATELY 45 MINUTES LATER. PT AND SPOUSE HAVE DECIDED THAT THEY WILL GO HOME WITH [facility] FOR THERAPY SERVICES, CHOICE SIGNED. CM PROVIDED PT WITH INFORMATION TO "[facility]" REFERRAL SERVICE AND CONTACT INFORMATION TO [facility] ON [place] TO INQUIRE REGARDING VENDING MACHINE SERVICER SUNG FUNDING. PT AND SPOUSE DENY FURTHER NEEDS FOR DISCHARGE HOME. PT PLANS TO DISCHARGE HOME WITH ASSISTANCE OF SPOUSE, PT WOULD LIKE HOME HEALTH WITH [facility], CM TO ARRANGE WITH PHYSICIAN AGREEMENT AND ORDERS FOR HOME HEALTH. CM TO CONTINUE TO FOLLOW AND ASSIST NEEDED. Geremias Toney, CASE MANAGEMENT Appended by Geremias Toney on 07/09/2019 13:29 MARKET RESEARCH WORKER: CM RECEIVED HOME HEALTH ORDER, CALLED AND SPOKE TO ESTEBAN AT [facility], THEY ARE OUT OF PT'S INSURANCE NETWORK. CM DISCUSSED OTHER HOME HEALTH AGENCIES IN [place], PT HAS NO PROVIDER CHOICE IF [facility] IS OUT OF NETWORK. CHOICE WAS PREVIOUSLY SIGNED. CM CALLED [facility], , SPOKE TO LINETTE AND PROVIDED REFERRAL INFORMATION, FAXED REFERRAL TO [facility] AT [phone]. [facility] TO ENSURE THEY ARE IN NETWORK WITH PT'S INSURANCE AND NOTIFY CM SHORTLY. PT PLANS TO DISCHARGE HOME WITH ASSISTANCE OF SPOUSE, CM WAITING CALL FROM [facility] TO ENSURE THEY ARE IN PT'S INSURANCE NETWORK. CM TO CONTINUE TO FOLLOW AND ASSIST NEEDED. Geremias Toney, CASE MANAGEMENT Appended by Geremias Toney on 07/09/2019 17:35 MARKET RESEARCH WORKER: CM SPOKE TO LINETTE OF [facility], THEY WILL ACCEPT FOR HOME HEALTH AND ARE IN NETWORK FOR HOME HEALTH; PT ON SCHEDULE NOW FOR MONDAY. PT'S SPOUSE NOTIFIED. FOR DISCHARGE, NOTIFY [facility], , FAX DISCHARGE INFORMATION TO [facility] AT [phone]. GEREMIAS TONEY, CASE MANAGEMENT DCP- Discharge Planning Updated by [id number]: Bree Ghosh on 07/05/19 11:[address] Patient Name: MOHINI AUGUSTIN Admission Status: ER Accout number: [id number] Admission Date: 07-02-2019 : 1945 Admission Diagnosis: Attending: LUKE MAROCS Current LOS: 3 Anticipated DC Date: Planned Disposition: Inpatient Rehab Primary Insurance: AETNA MEDICARE PPO or HMO Discharge Planning Comments: CM MET WITH PATIENT AFTER OBTAINING VERBAL CONSENT. PATIENT PLANS TO DC TO [facility] SOON. IMM SIGNED. FAMILY AT BEDSIDE. CM TO FOLLOW AND ASSIST NEEDED. Media Law Faculty Member: Bree Ghosh DCPIA - Discharge Planning Initial Assessment Updated by [id number]: Bree Ghosh on 07/05/19 12:31 pm * Is the patient Alert and Oriented? Yes * PCP ROWDY * Pharmacy [facility] * Preadmission Environment Home with Family * ADLs Independent * Other Equipment 02, NEBS WITH [facility] * Community resources currently utilized None * Additional services required to return to the preadmission environment? Yes * Can the patient safely return to the preadmission environment? Yes * Has this patient been hospitalized within the prior 30 days at any hospital? No External Providers [facility] Next Contact Date: 07/11/2019 Service Request Date: Service Type: Resolution: Reviewer: Comments: Coverage Notice Reviewer: [id number] Ainsley Toney Notice Issued Date-Time: 07/08/2019 17:02 Notice Type: Patient Choice Letter Notice Delivered To: Family Member Relationship to Patient: Spouse Sports Marketer Name: TONY AUGUSTIN Delivery Method: HAND - Hand Delivered Gisela Days: Prior Verbal Notification: Recipient Understood Notice: Yes Recipient Signature: Yes Med Rec Note Co-signed by Attending: Coverage Notice Comment: [facility] Reviewer: [id number] Ainsley Toney Notice Issued Date-Time: 07/09/2019 17:02 Notice Type: IM Discharge Notice Notice Delivered To: Family Member Relationship to Patient: Spouse Sports Marketer Name: TONY AUGUSTIN Delivery Method: HAND - Hand Delivered Gisela Days: Prior Verbal Notification: Recipient Understood Notice: Yes Recipient Signature: Yes Med Rec Note Co-signed by Attending: Coverage Notice Comment: Reviewer: [id number] Ainsley Ghosh Notice Issued Date-Time: 07/05/2019 12:30 Notice Type: IM Discharge Notice Notice Delivered To: Patient Relationship to Patient: Sports Marketer Name: Delivery Method: HAND - Hand Delivered Gisela Days: Prior Verbal Notification: Recipient Understood Notice: Yes Recipient Signature: Yes Med Rec Note Co-signed by Attending: Coverage Notice Comment: Last DP export: 07/11/19 7:16 am Patient Name: MOHINI AUGUSTIN Page [id number] at 0823 All edits/amendments must be made on the electronic document DICTATION DATE: 07/11/19822 JIG FITTER: DM 07/11/19822 RPT#: [id number] DC DATE: STATUS: ADM IN [facility] [address] [place] [address] END OF REPORT
--- NOTE | 2019-07-11 09:05 | MORECARE ---
CASE MANAGEMENT DISCHARGE SUMMARY PATIENT: MOHINI AUGUSTIN UNIT: [id number] ADM DATE: 07/02/19 AGE: 74 : 43 SEX: F ROOM/BED: D.5678 AUTHOR: ROBI,DOC PHYSICIAN: REFERRING PHYSICIAN: LUKE MARCOS MD DATE OF SERVICE: 07/11/19 Discharge Plan Patient Name: MOHINI AUGUSTIN Facility: [facility]:[place] : 1945 Planned Disposition: Alf Facility Anticipated Discharge Date: 07/11/19 Discharge Date: Expected LOS: 9 Initial Reviewer: [id number] Initial Review Date: 07/05/2019 Generated: 07/11/19 10:05 am Comments DCP- Discharge Planning Updated by [id number]: Geremias Toney on 07/11/19 8:[address] Patient Name: MOHINI AUGUSTIN Encounter No: [id number] : 1945 Primary Insurance: AETNA MEDICARE PPO or HMO Anticipated DC Date: 07-11-2019 Planned Disposition: Alf Facility External Planned Provider: [facility], MEDICARE REHAB BED DCP follow-up note: CM RECEIVED REQUEST FROM FAMILY TO MEET WITH THEM REGARDING DISCHARGE PLANNING. CM MET WITH PT AND SPOUSE IN ROOM. PT'S SPOUSE REPORTS THAT IF PT GETS DOWN AT HOME, HE IS NOT GOING TO BE ABLE TO GET HER UP. THEY WANT REHAB AT [facility]; SECOND CHOICE WOULD BE [facility]. CM EXPLAINED THAT THE FACILITY WILL HAVE TO BE IN INSURANCE NETWORK AND WILL REQUIRE AUTHORIZATION FROM INSURANCE. CHOICE SIGNED FOR [facility] AND [facility]. IMPORTANT MESSAGE FROM MEDICARE PROVIDED. CM FAXED REFERRAL INFORMATION TO [facility] AT [phone]. CM CALLED MESERET AT [facility], , SHE DOES NOT KNOW IF THEY ARE IN NETWORK WITH PT'S INSURANCE AND WILL SCREEN PT WHEN REFERRAL RECEIVED. CM FAXED REFERRAL INFORMATION TO [facility] AT [phone], CM CALLED AND LEFT MESSAGE FOR MAYITO AT [facility], AND PROVIDED REFERRAL INFORMATION. CM WAITING DETERMINATION FROM [facility] AND [facility]. Geremias Toney CASE MANAGEMENT DCP- Discharge Planning Updated by [id number]: Geremias Toney on 07/09/19 4:[address] Patient Name: MOHINI AUGUSTIN Encounter No: [id number] : 1945 Primary Insurance: AETNA MEDICARE PPO or HMO Anticipated DC Date: 07-09-2019 Planned Disposition: Home with Home Health External Planned Provider: [facility] DCP follow-up note: LATE ENTRY FROM 07-08-19, APPROXIMATELY 1700 HOURS; CM SPOKE TO [facility] INPATIENT REH[facility], PT'S INSURANCE DECLINED INPATIENT REHAB. CM MET WITH PT AND FAMILY IN ROOM TO DISCUSS DISCHARGE PLANNING. PT GAVE PERMISSION TO DISCUSS WITH ALL FAMILY PRESENT. CM DISCUSSED INSURANCE DENIAL OF INPATIENT REHAB DUE TO HIGH LEVEL OF FUNCTIONING. CM DISCUSSED AVAILABILITY OF LONG TERM REHAB, OUTPATIENT REHAB, HOME HEALTH AND MEDICAL EQUIPMENT. PT'S FAMILY ASKED TO SPEAK ALONE. CM LEFT AND RETURNED APPROXIMATELY 45 MINUTES LATER. PT AND SPOUSE HAVE DECIDED THAT THEY WILL GO HOME WITH [facility] FOR THERAPY SERVICES, CHOICE SIGNED. CM PROVIDED PT WITH INFORMATION TO "[facility]" REFERRAL SERVICE AND CONTACT INFORMATION TO [facility] AGENCY ON [place] TO INQUIRE REGARDING MEDICAL LABORATORY SPECIALIST SUNG FUNDING. PT AND SPOUSE DENY FURTHER NEEDS FOR DISCHARGE HOME. PT PLANS TO DISCHARGE HOME WITH ASSISTANCE OF SPOUSE, PT WOULD LIKE HOME HEALTH WITH [facility], CM TO ARRANGE WITH PHYSICIAN AGREEMENT AND ORDERS FOR HOME HEALTH. CM TO CONTINUE TO FOLLOW AND ASSIST NEEDED. Geremias Toney, CASE MANAGEMENT Appended by Geremias Toney on 07/09/2019 13:29 AGING ROOM HAND: CM RECEIVED HOME HEALTH ORDER, CALLED AND SPOKE TO ESTEBAN AT [facility], THEY ARE OUT OF PT'S INSURANCE NETWORK. CM DISCUSSED OTHER HOME HEALTH AGENCIES IN [place], PT HAS NO PROVIDER CHOICE IF [facility] IS OUT OF NETWORK. CHOICE WAS PREVIOUSLY SIGNED. CM CALLED [facility], , SPOKE TO LINETTE AND PROVIDED REFERRAL INFORMATION, FAXED REFERRAL TO [facility] AT [phone]. [facility] TO ENSURE THEY ARE IN NETWORK WITH PT'S INSURANCE AND NOTIFY CM SHORTLY. PT PLANS TO DISCHARGE HOME WITH ASSISTANCE OF SPOUSE, CM WAITING CALL FROM [facility] TO ENSURE THEY ARE IN PT'S INSURANCE NETWORK. CM TO CONTINUE TO FOLLOW AND ASSIST NEEDED. Geremias Toney, CASE MANAGEMENT Appended by Geremias Toney on 07/09/2019 17:35 AGING ROOM HAND: CM SPOKE TO LINETTE OF [facility], THEY WILL ACCEPT FOR HOME HEALTH AND ARE IN NETWORK FOR HOME HEALTH; PT ON SCHEDULE NOW FOR MONDAY. PT'S SPOUSE NOTIFIED. FOR DISCHARGE, NOTIFY [facility], , FAX DISCHARGE INFORMATION TO [facility] AT [phone]. GEREMIAS TONEY, CASE MANAGEMENT DCP- Discharge Planning Updated by [id number]: Bree Ghosh on 07/05/19 11:[address] Patient Name: MOHINI AUGUSTIN Admission Status: ER Accout number: [id number] Admission Date: 07-02-2019 : 1945 Admission Diagnosis: Attending: LUKE MARCOS Current LOS: 3 Anticipated DC Date: Planned Disposition: Inpatient Rehab Primary Insurance: AETNA MEDICARE PPO or HMO Discharge Planning Comments: CM MET WITH PATIENT AFTER OBTAINING VERBAL CONSENT. PATIENT PLANS TO DC TO [facility] SOON. IMM SIGNED. FAMILY AT BEDSIDE. CM TO FOLLOW AND ASSIST NEEDED. Supervisor Irrigation: Bree Ghosh DCPIA - Discharge Planning Initial Assessment Updated by [id number]: Bree Ghosh on 07/05/19 12:31 pm * Is the patient Alert and Oriented? Yes * PCP ROWDY * Pharmacy [facility] * Preadmission Environment Home with Family * ADLs Independent * Other Equipment 02, NEBS WITH [facility] * Community resources currently utilized None * Additional services required to return to the preadmission environment? Yes * Can the patient safely return to the preadmission environment? Yes * Has this patient been hospitalized within the prior 30 days at any hospital? No External Providers External Provider: [facility] Next Contact Date: 07/11/2019 Service Request Date: Service Type: Resolution: Reviewer: Comments: Coverage Notice Reviewer: [id number] Ainsley Toney Notice Issued Date-Time: 07/08/2019 17:02 Notice Type: Patient Choice Letter Notice Delivered To: Family Member Relationship to Patient: Spouse Senior Functional Analyst Name: TONY AUGUSTIN Delivery Method: HAND - Hand Delivered Gisela Days: Prior Verbal Notification: Recipient Understood Notice: Yes Recipient Signature: Yes Med Rec Note Co-signed by Attending: Coverage Notice Comment: [facility] Reviewer: [id number] Ainsley Toney Notice Issued Date-Time: 07/09/2019 17:02 Notice Type: IM Discharge Notice Notice Delivered To: Family Member Relationship to Patient: Spouse Senior Functional Analyst Name: TONY AUGUSTIN Delivery Method: HAND - Hand Delivered Gisela Days: Prior Verbal Notification: Recipient Understood Notice: Yes Recipient Signature: Yes Med Rec Note Co-signed by Attending: Coverage Notice Comment: Reviewer: [id number] Ainsley Ghosh Notice Issued Date-Time: 07/05/2019 12:30 Notice Type: IM Discharge Notice Notice Delivered To: Patient Relationship to Patient: Senior Functional Analyst Name: Delivery Method: HAND - Hand Delivered Gisela Days: Prior Verbal Notification: Recipient Understood Notice: Yes Recipient Signature: Yes Med Rec Note Co-signed by Attending: Coverage Notice Comment: Last DP export: 07/11/19 7:23 am Patient Name: MOHINI AUGUSTIN Page [id number] at 0905 All edits/amendments must be made on the electronic document DICTATION DATE: 07/11/19904 WEATHER FORECASTER: ETIENNE 07/11/19904 RPT#: [id number] DC DATE: STATUS: ADM IN [facility] [address] [place] [address] END OF REPORT
--- NOTE | 2019-07-11 10:52 | NUR ---
PIV INFILTRATED. SPOKE WITH ABOUT CHANGING LASIX TO PO TO PREVENT PT HAVING ANOTHER NEEDLE STICK. RECEIVED ORDERS THAT SHE WOULD CHANGE LASIX TO PO. PIV REMOVED WITH CATHETER TIP FULLY INTACT. WILL CTM.
--- NOTE | 2019-07-11 11:51 | MORECARE ---
CASE MANAGEMENT DISCHARGE SUMMARY PATIENT: MOHINI AUGUSTIN UNIT: [id number] ADM DATE: 07/02/19 AGE: 74 : 43 SEX: F ROOM/BED: D.2108 AUTHOR: ROBI,DOC PHYSICIAN: REFERRING PHYSICIAN: LUKE MARCOS MD DATE OF SERVICE: 07/11/19 Discharge Plan Patient Name: MOHINI AUGUSTIN Facility: [facility]:[place] : 1945 Planned Disposition: [facility] Facility Anticipated Discharge Date: 07/11/19 Discharge Date: Expected LOS: 9 Initial Reviewer: [id number] Initial Review Date: 07/05/2019 Generated: 07/11/19 12:51 pm Comments DCP- Discharge Planning Updated by [id number]: Ozzie Toney on 07/11/19 10:[address] Patient Name: MOHINI AUGUSTIN Encounter No: [id number] : 1945 Primary Insurance: AETNA MEDICARE PPO or HMO Anticipated DC Date: 07-11-2019 Planned Disposition: [facility] Facility External Planned Provider:[facility], MEDICARE REHAB BED DCP follow-up note: CM RECEIVED CALL FROM [facility], , THEY ARE NOT IN NETWORK WITH PT'S INSURANCE, INFORMED CM THAT [facility] AND [facility] ARE. CM CALLED AND SPOKE TO TAMMY AT [facility], , VERIFIED REFERRAL RECEIPT. CM ASKED FOR EXPEDITED PROCESSING CM WAITING DETERMINATION FROM [facility]. Ozzie Toney, CASE RAVI DCP- Discharge Planning Updated by [email or web address]: Ozzie Toney on 07/11/19 8:[address] Patient Name: MOHINI AUGUSTIN Encounter No: [id number] : 1945 Primary Insurance: AETNA MEDICARE PPO or HMO Anticipated DC Date: 07-11-2019 Planned Disposition: [facility] Facility External Planned Provider: [facility], MEDICARE REHAB BED DCP follow-up note: CM RECEIVED REQUEST FROM FAMILY TO MEET WITH THEM REGARDING DISCHARGE PLANNING. CM MET WITH PT AND SPOUSE IN ROOM. PT'S SPOUSE REPORTS THAT IF PT GETS DOWN AT HOME, HE IS NOT GOING TO BE ABLE TO GET HER UP. THEY WANT REHAB AT [facility]; SECOND CHOICE WOULD BE [facility]. CM EXPLAINED THAT THE FACILITY WILL HAVE TO BE IN INSURANCE NETWORK AND WILL REQUIRE AUTHORIZATION FROM INSURANCE. CHOICE SIGNED FOR [facility] AND [facility]. IMPORTANT MESSAGE FROM MEDICARE PROVIDED. CM FAXED REFERRAL INFORMATION TO [facility] AT [phone]. CM CALLED MESERET AT [facility], , SHE DOES NOT KNOW IF THEY ARE IN NETWORK WITH PT'S INSURANCE AND WILL SCREEN PT WHEN REFERRAL RECEIVED. CM FAXED REFERRAL INFORMATION TO [facility] AT [phone], CM CALLED AND LEFT MESSAGE FOR MAYITO AT [facility], AND PROVIDED REFERRAL INFORMATION. CM WAITING DETERMINATION FROM [facility] AND [facility]. Ozzie Toney, CASE MANAGEMENT DCP- Discharge Planning Updated by [id number]: Ozzie Toney on 07/09/19 4:[address] Patient Name: MOHINI AUGUSTIN Encounter No: [id number] : 1945 Primary Insurance: AETNA MEDICARE PPO or HMO Anticipated DC Date: 07-09-2019 Planned Disposition: Home with Home Health External Planned Provider: [facility] DCP follow-up note: LATE ENTRY FROM 07-08-19, APPROXIMATELY 1700 HOURS; CM SPOKE TO [facility] OF [facility] INPATIENT RE[facility], PT'S INSURANCE DECLINED INPATIENT REHAB. CM MET WITH PT AND FAMILY IN ROOM TO DISCUSS DISCHARGE PLANNING. PT GAVE PERMISSION TO DISCUSS WITH ALL FAMILY PRESENT. CM DISCUSSED INSURANCE DENIAL OF INPATIENT REHAB DUE TO HIGH LEVEL OF FUNCTIONING. CM DISCUSSED AVAILABILITY OF [facility], OUTPATIENT REHAB, HOME HEALTH AND MEDICAL EQUIPMENT. PT'S FAMILY ASKED TO SPEAK ALONE. CM LEFT AND RETURNED APPROXIMATELY 45 MINUTES LATER. PT AND SPOUSE HAVE DECIDED THAT THEY WILL GO HOME WITH [employer] [facility] AT HOME FOR THERAPY SERVICES, CHOICE SIGNED. CM PROVIDED PT WITH INFORMATION TO [facility] REFERRAL SERVICE AND CONTACT INFORMATION TO [facility] ON [place] TO INQUIRE REGARDING MAJOR CASE DETECTIVE SUNG FUNDING. PT AND SPOUSE DENY FURTHER NEEDS FOR DISCHARGE HOME. PT PLANS TO DISCHARGE HOME WITH ASSISTANCE OF SPOUSE, PT WOULD LIKE HOME HEALTH WITH [facility], CM TO ARRANGE WITH PHYSICIAN AGREEMENT AND ORDERS FOR HOME HEALTH. CM TO CONTINUE TO FOLLOW AND ASSIST NEEDED. Ozzie Toney, CASE MANAGEMENT Appended by Ozzie Toney on 07/09/2019 13:29 CORE MACHINE OPERATOR: CM RECEIVED HOME HEALTH ORDER, CALLED AND SPOKE TO ESTEBAN AT [facility], THEY ARE OUT OF PT'S INSURANCE NETWORK. CM DISCUSSED OTHER HOME HEALTH AGENCIES IN [place], PT HAS NO PROVIDER CHOICE IF [facility] IS OUT OF NETWORK. CHOICE WAS PREVIOUSLY SIGNED. CM CALLED [facility], , SPOKE TO LINETTE AND PROVIDED REFERRAL INFORMATION, FAXED REFERRAL TO [facility] AT [phone]. [facility] TO ENSURE THEY ARE IN NETWORK WITH PT'S INSURANCE AND NOTIFY CM SHORTLY. PT PLANS TO DISCHARGE HOME WITH ASSISTANCE OF SPOUSE, CM WAITING CALL FROM [facility] TO ENSURE THEY ARE IN PT'S INSURANCE NETWORK. CM TO CONTINUE TO FOLLOW AND ASSIST NEEDED. Ozzie Toney, CASE MANAGEMENT Appended by Ozzie Toney on 07/09/2019 17:35 CORE MACHINE OPERATOR: CM SPOKE TO LINETTE OF [facility], THEY WILL ACCEPT FOR HOME HEALTH AND ARE IN NETWORK FOR HOME HEALTH; PT ON SCHEDULE NOW FOR MONDAY. PT'S SPOUSE NOTIFIED. FOR DISCHARGE, NOTIFY [facility], , FAX DISCHARGE INFORMATION TO [facility] AT [phone]. OZZIE TONEY, CASE MANAGEMENT DCP- Discharge Planning Updated by [id number]: Bree Ghosh on 07/05/19 11:[address] Patient Name: MOHINI AUGUSTIN Admission Status: ER Accout number: [id number] Admission Date: 07-02-2019 : 1945 Admission Diagnosis: Attending: LUKE MARCOS Current LOS: 3 Anticipated DC Date: Planned Disposition: Inpatient Rehab Primary Insurance: AETNA MEDICARE PPO or HMO Discharge Planning Comments: CM MET WITH PATIENT AFTER OBTAINING VERBAL CONSENT. PAT[facility] IMM SIGNED. FAMILY AT BEDSIDE. CM TO FOLLOW AND ASSIST NEEDED. Factory Helper: Bree Ghosh DCPIA - Discharge Planning Initial Assessment Updated by [id number]: Bree Ghosh on 07/05/19 12:31 pm * Is the patient Alert and Oriented? Yes * PCP ROWDY * Pharmacy [facility] * Preadmission Environment Home with Family * ADLs Independent * Other Equipment 02, NEBS WITH [facility] * Community resources currently utilized None * Additional services required to return to the preadmission environment? Yes * Can the patient safely return to the preadmission environment? Yes * Has this patient been hospitalized within the prior 30 days at any hospital? No Coverage Notice Reviewer: LESLY Toney Notice Issued Date-Time: 07/11/2019 8:10 Notice Type: Patient Choice Letter Notice Delivered To: Family Member Relationship to Patient: Spouse Ironer Hand Name: TONY AUGUSTIN Delivery Method: HAND - Hand Delivered Gisela Days: Prior Verbal Notification: Recipient Understood Notice: Recipient Signature: Med Rec Note Co-signed by Attending: Coverage Notice Comment: JOHNNIE YUAN Reviewer: LESLY Toney Notice Issued Date-Time: 07/08/2019 17:02 Notice Type: Patient Choice Letter Notice Delivered To: Family Member Relationship to Patient: Spouse Ironer Hand Name: TONY AUGUSTIN Delivery Method: HAND - Hand Delivered Gisela Days: Prior Verbal Notification: Recipient Understood Notice: Yes Recipient Signature: Yes Med Rec Note Co-signed by Attending: Coverage Notice Comment: [facility] Reviewer: LESLY Toney Notice Issued Date-Time: 07/11/2019 8:10 Notice Type: IM Discharge Notice Notice Delivered To: Family Member Relationship to Patient: Spouse Ironer Hand Name: TONY AUGUSTIN Delivery Method: - Gisela Days: Prior Verbal Notification: Recipient Understood Notice: Recipient Signature: Med Rec Note Co-signed by Attending: Coverage Notice Comment: Reviewer: LESLY Toney Notice Issued Date-Time: 07/09/2019 17:02 Notice Type: IM Discharge Notice Notice Delivered To: Family Member Relationship to Patient: Spouse Ironer Hand Name: TONY AUGUSTIN Delivery Method: HAND - Hand Delivered Gisela Days: Prior Verbal Notification: Recipient Understood Notice: Yes Recipient Signature: Yes Med Rec Note Co-signed by Attending: Coverage Notice Comment: Reviewer: [id number] Ainsley Ghosh Notice Issued Date-Time: 07/05/2019 12:30 Notice Type: IM Discharge Notice Notice Delivered To: Patient Relationship to Patient: Ironer Hand Name: Delivery Method: HAND - Hand Delivered Gisela Days: Prior Verbal Notification: Recipient Understood Notice: Yes Recipient Signature: Yes Med Rec Note Co-signed by Attending: Coverage Notice Comment: Last DP export: 07/11/19 8:05 am Patient Name: MOHINI AUGUSTIN Page [id number] at 1151 All edits/amendments must be made on the electronic document DICTATION DATE: 07/11/19 115 [employer] CONSULTANT: ETIENNE 07/11/19 1151 RPT#: [id number] DC DATE: STATUS: ADM IN [facility] [address] [place] [address] END OF REPORT
[2019-07-11 12:34] VITALS: BP 102/48
--- NOTE | 2019-07-11 12:55 | NUR ---
I have reviewed this patient and I concur with the Shift Assessment completed by the Licensed Practical Nurse today this shift.
--- NOTE | 2019-07-11 15:34 | NUR ---
OT NOTE: PT WITH CONTINUED EDEMA IN LES. BED MOB INCLUDING SUPINE TO SIT WITH MOD ASSIST; SIT TO STAND WITH MIN ASSIST; TOILETING WITH MIN ASSIST; ABLE TO AMB GREATER THAN 175' TO IMPROVE STRENGTH AND ENDURANCE. PT REMAINS SLOW TO RESPOND TO COMMANDS. RESISTANT TO SIT UP IN CHAIR DUE TO LE EDEMA. EDUCATED ON IMPORTANCE OF MOVING AROUND IN BED AND AROM EXS TO PREVENT FURTHER DECLINE. JUDI GRANT,OTR/L [phone]
[2019-07-11 16:11] VITALS: BP 112/58
--- NOTE | 2019-07-11 18:08 | NUR ---
OT NOTE: PT REQUIRED MIN A FOR LE MANAGEMENT FOR SUPINE TO SIT AT EOB. PT COMPLETED SIT TO STAND WITH CGA. PT COMPLETED ADL MOB TO TOILET WITH CGA. PT COMPLETED TOILETING WITH MIN A. FOR HYGIENE TASKS WHILE STANDING. PT COMPLETED CLOTHING MANAGEMENT WITH MIN A FOR TOILETING. PT COMPLETED HAND HYGIENE WITH SETUP. PT COMPLETED UE AROM EXS AT EOB. [id number] THANK YOU,NATALEE FINLEY
[2019-07-11 20:00] VITALS: BP 114/59
[2019-07-12] VITALS: BP 106/51
[2019-07-12 04:00] VITALS: BP 116/54
[2019-07-12 04:57] LABS: BASOPHILS 0.4 % (0-2); EOSINOPHILS 1.9 % (0-7); HEMATOCRIT 31.5 % (36.0-48.0); HEMOGLOBIN 10.8 g/dL (12-16); LYMPHOCYTES 15.6 % (15-50); MCH 30.9 pg (26.0-34.0); MCHC 34.3 g/dL (31.0-37.0); MEAN PLATELET VOLUME 10.7 fL (7.4-10.4); MONOCYTES 19.5 % (2-11); NEUTROPHILS 61.6 % (40-80); PLATELET COUNT 158 10x3/uL (130-400); RDW 15.8 % (11.5-14.5); WBC 9.8 10x3/uL (4.8-10.8)
[2019-07-12 05:28] LABS: ANION GAP 10.2 mmol/L (8-16); CALCIUM 7.9 mg/dL (8.5-10.1); CARBON DIOXIDE 24.7 mmol/L (21.0-32.0); CREATININE - SERUM 1.2 mg/dL (0.6-1.3); POTASSIUM - SERUM 3.9 mmol/L (3.5-5.1)
--- NOTE | 2019-07-12 06:15 | NUR ---
ASSIST PT TO RESTROOM. FSBS 104. NOT TREATED PER SLIDING SCALE.
[2019-07-12 09:55] VITALS: BP 123/56
--- NOTE | 2019-07-12 12:47 | NUR ---
Nutrition Follow-up: Noted pt eating better. Family reports pt ate ~60% of breakfast this AM, as well as a Glucerna. Denies N/V. Awaiting placement. Diet: Diabetic No new wt; last wt: 165# (07/08) Last BM: 07/10 Labs noted: Na 124, Glu 95, Ca 7.9 Meds noted: MagOx, Oscal, Protonix -Encourage PO intake and honor food preferences within diet restrictions. -Need new wt; noted daily wts ordered. -RD following.
--- NOTE | 2019-07-12 13:28 | MORECARE ---
CASE MANAGEMENT DISCHARGE SUMMARY PATIENT: MOHINI AUGUSTIN UNIT: [id number] ADM DATE: 07/02/19 AGE: 74 : 43 SEX: F ROOM/BED: D.2107 AUTHOR: ROBI,DOC PHYSICIAN: REFERRING PHYSICIAN: LUKE MARCOS MD DATE OF SERVICE: 07/12/19 Discharge Plan Patient Name: MOHINI AUGUSTIN Facility: [facility]:[place] : 1945 Planned Disposition: Longterm Facility Anticipated Discharge Date: 07/12/19 Discharge Date: Expected LOS: 10 Initial Reviewer: [id number] Initial Review Date: 07/05/2019 Generated: 07/12/19 2:28 pm DCP- Discharge Planning Updated by [id number]: Ozzie Toney on 07/11/19 10:[address] Patient Name: MOHINI AUGUSTIN Encounter No: [id number] : 1945 Primary Insurance: AETNA MEDICARE PPO or HMO Anticipated DC Date: 07-11-2019 Planned Disposition: Longterm Facility External Planned Provider:[facility], MEDICARE REHAB BED DCP follow-up note: CM RECEIVED CALL FROM [facility], , THEY ARE NOT IN NETWORK WITH PT'S INSURANCE, INFORMED CM THAT [facility] AND [facility] ARE. CM CALLED AND SPOKE TO TAMMY AT [facility], , VERIFIED REFERRAL RECEIPT. CM ASKED FOR EXPEDITED PROCESSING CM WAITING DETERMINATION FROM [facility]. Ozzie Toney, CASE RAVI DCP- Discharge Planning Updated by [id number]: Ozzie Toney on 07/11/19 8:[address] Patient Name: MOHINI AUGUSTIN Encounter No: [id number] : 1945 Primary Insurance: AETNA MEDICARE PPO or HMO Anticipated DC Date: 07-11-2019 Planned Disposition: Longterm Facility External Planned Provider: [facility], MEDICARE REHAB BED DCP follow-up note: CM RECEIVED REQUEST FROM FAMILY TO MEET WITH THEM REGARDING DISCHARGE PLANNING. CM MET WITH PT AND SPOUSE IN ROOM. PT'S SPOUSE REPORTS THAT IF PT GETS DOWN AT HOME, HE IS NOT GOING TO BE ABLE TO GET HER UP. THEY WANT REHAB AT [facility]; SECOND CHOICE WOULD BE [facility]. CM EXPLAINED THAT THE FACILITY WILL HAVE TO BE IN INSURANCE NETWORK AND WILL REQUIRE AUTHORIZATION FROM INSURANCE. CHOICE SIGNED FOR [facility] AND [facility]. IMPORTANT MESSAGE FROM MEDICARE PROVIDED. CM FAXED REFERRAL INFORMATION TO [facility] AT [phone]. CM CALLED MESERET AT [facility], , SHE DOES NOT KNOW IF THEY ARE IN NETWORK WITH PT'S INSURANCE AND WILL SCREEN PT WHEN REFERRAL RECEIVED. CM FAXED REFERRAL INFORMATION TO [facility] AT [phone], CM CALLED AND LEFT MESSAGE FOR MAYITO AT [facility], AND PROVIDED REFERRAL INFORMATION. CM WAITING DETERMINATION FROM [facility] AND [facility]. Ozzie Toney, CASE MANAGEMENT DCP- Discharge Planning Updated by [id number]: Ozzie Toney on 07/09/19 4:[address] Patient Name: MOHINI AUGUSTIN Encounter No: [id number] : 1945 Primary Insurance: AETNA MEDICARE PPO or HMO Anticipated DC Date: 07-09-2019 Planned Disposition: Home with Home Health External Planned Provider: [facility] DCP follow-up note: LATE ENTRY FROM 07-08-19, APPROXIMATELY 1700 HOURS; CM SPOKE TO [facility] INPATIENT [facility], PT'S INSURANCE DECLINED INPATIENT REHAB. CM MET WITH PT AND FAMILY IN ROOM TO DISCUSS DISCHARGE PLANNING. PT GAVE PERMISSION TO DISCUSS WITH ALL FAMILY PRESENT. CM DISCUSSED INSURANCE DENIAL OF INPATIENT REHAB DUE TO HIGH LEVEL OF FUNCTIONING. CM DISCUSSED AVAILABILITY OF [facility], OUTPATIENT REHAB, HOME HEALTH AND MEDICAL EQUIPMENT. PT'S FAMILY ASKED TO SPEAK ALONE. CM LEFT AND RETURNED APPROXIMATELY 45 MINUTES LATER. PT AND SPOUSE HAVE DECIDED THAT THEY WILL GO HOME WITH [employer] HOME FOR THERAPY SERVICES, CHOICE SIGNED. CM PROVIDED PT WITH INFORMATION TO [facility] REFERRAL SERVICE AND CONTACT INFORMATION TO [facility] ON [address] TO INQUIRE REGARDING DONKEY ENGINE FIRER/FIREMAN SUNG FUNDING. PT AND SPOUSE DENY FURTHER NEEDS FOR DISCHARGE HOME. PT PLANS TO DISCHARGE HOME WITH ASSISTANCE OF SPOUSE, PT WOULD LIKE HOME HEALTH WITH [facility], CM TO ARRANGE WITH PHYSICIAN AGREEMENT AND ORDERS FOR HOME HEALTH. CM TO CONTINUE TO FOLLOW AND ASSIST NEEDED. Ozzie Toney, CASE MANAGEMENT Appended by Ozzie Toney on 07/09/2019 13:29 WILDLIFE MANAGER: CM RECEIVED HOME HEALTH ORDER, CALLED AND SPOKE TO ESTEBAN AT [facility], THEY ARE OUT OF PT'S INSURANCE NETWORK. CM DISCUSSED OTHER HOME HEALTH AGENCIES IN [place], PT HAS NO PROVIDER CHOICE IF [facility] IS OUT OF NETWORK. CHOICE WAS PREVIOUSLY SIGNED. CM CALLED [facility], , SPOKE TO LINETTE AND PROVIDED REFERRAL INFORMATION, FAXED REFERRAL TO [facility] AT [phone]. [facility] TO ENSURE THEY ARE IN NETWORK WITH PT'S INSURANCE AND NOTIFY CM SHORTLY. PT PLANS TO DISCHARGE HOME WITH ASSISTANCE OF SPOUSE, CM WAITING CALL FROM [facility] TO ENSURE THEY ARE IN PT'S INSURANCE NETWORK. CM TO CONTINUE TO FOLLOW AND ASSIST NEEDED. Ozzie Toney CASE MANAGEMENT Appended by Ozzie Toney on 07/09/2019 17:35 WILDLIFE MANAGER: CM SPOKE TO LINETTE OF [facility], THEY WILL ACCEPT FOR HOME HEALTH AND ARE IN NETWORK FOR HOME HEALTH; PT ON SCHEDULE NOW FOR MONDAY. PT'S SPOUSE NOTIFIED. FOR DISCHARGE, NOTIFY [facility], , FAX DISCHARGE INFORMATION TO [facility] AT [phone]. OZZIE TONEY CASE MANAGEMENT DCP- Discharge Planning Updated by [id number]: Bree Ghosh on 07/05/19 11:[address] Patient Name: MOHINI AUGUSTIN Admission Status: ER Accout number: [id number] Admission Date: 07-02-2019 : 1945 Admission Diagnosis: Attending: LUKE MARCOS Current LOS: 3 Anticipated DC Date: Planned Disposition: Inpatient Rehab Primary Insurance: AETNA MEDICARE PPO or HMO Discharge Planning Comments: CM MET WITH PATIENT AFTER OBTAINING VERBAL CONSENT. PATIENT PLANS TO DC TO [facility] SOON. IMM SIGNED. FAMILY AT BEDSIDE. CM TO FOLLOW AND ASSIST NEEDED. Neck Skewer: Bree Ghosh DCPIA - Discharge Planning Initial Assessment Updated by [id number]: Bree Ghosh on 07/05/19 12:31 pm * Is the patient Alert and Oriented? Yes * PCP ROWDY * Pharmacy [facility] * Preadmission Environment Home with Family * ADLs Independent * Other Equipment 02, NEBS WITH [facility] * Community resources currently utilized None * Additional services required to return to the preadmission environment? Yes * Can the patient safely return to the preadmission environment? Yes * Has this patient been hospitalized within the prior 30 days at any hospital? No Coverage Notice Reviewer: [id number] Ainsley Ghosh Notice Issued Date-Time: 07/05/2019 12:30 Notice Type: IM Discharge Notice Notice Delivered To: Patient Relationship to Patient: Senior Bi Architect Name: Delivery Method: HAND - Hand Delivered Gisela Days: Prior Verbal Notification: Recipient Understood Notice: Yes Recipient Signature: Yes Med Rec Note Co-signed by Attending: Coverage Notice Comment: Reviewer: LESLY Toney Notice Issued Date-Time: 07/09/2019 17:02 Notice Type: IM Discharge Notice Notice Delivered To: Family Member Relationship to Patient: Spouse Senior Bi Architect Name: TONY AUGUSTIN Delivery Method: HAND - Hand Delivered Gisela Days: Prior Verbal Notification: Recipient Understood Notice: Yes Recipient Signature: Yes Med Rec Note Co-signed by Attending: Coverage Notice Comment: Reviewer: LESLY Toney Notice Issued Date-Time: 07/08/2019 17:02 Notice Type: Patient Choice Letter Notice Delivered To: Family Member Relationship to Patient: Spouse Senior Bi Architect Name: TONY AUGUSTIN Delivery Method: HAND - Hand Delivered Gisela Days: Prior Verbal Notification: Recipient Understood Notice: Yes Recipient Signature: Yes Med Rec Note Co-signed by Attending: Coverage Notice Comment: [facility] Reviewer: LESLY Toney Notice Issued Date-Time: 07/11/2019 8:10 Notice Type: IM Discharge Notice Notice Delivered To: Family Member Relationship to Patient: Spouse Senior Bi Architect Name: TONY AUGUSTIN Delivery Method: - Gisela Days: Prior Verbal Notification: Recipient Understood Notice: Recipient Signature: Med Rec Note Co-signed by Attending: Coverage Notice Comment: Reviewer: LESLY Toney Notice Issued Date-Time: 07/11/2019 8:10 Notice Type: Patient Choice Letter Notice Delivered To: Family Member Relationship to Patient: Spouse Senior Bi Architect Name: TONY AUGUSTIN Delivery Method: HAND - Hand Delivered Gisela Days: Prior Verbal Notification: Recipient Understood Notice: Recipient Signature: Med Rec Note Co-signed by Attending: Coverage Notice Comment: JOHNNIE YUAN Last DP export: 07/11/19 10:51 am Patient Name: MOHINI AUGUSTIN Page [id number] at 1328 All edits/amendments must be made on the electronic document DICTATION DATE: 07/12/198 LARD REFINER: ETIENNE 07/12/19 1328 RPT#: [id number] DC DATE: STATUS: ADM IN [facility] [address] [place] [address] END OF REPORT
--- NOTE | 2019-07-12 13:38 | MORECARE ---
CASE MANAGEMENT DISCHARGE SUMMARY PATIENT: MOHINI AUGUSTIN UNIT: [id number] ADM DATE: 07/02/19 AGE: 74 : 43 SEX: F ROOM/BED: D.2102 AUTHOR: ROBI,DOC PHYSICIAN: REFERRING PHYSICIAN: LUKE MARCOS MD DATE OF SERVICE: 07/12/19 Discharge Plan Patient Name: MOHINI AUGUSTIN Facility: [facility]:[place] : 1945 Planned Disposition: Detention Facility Anticipated Discharge Date: 07/12/19 Discharge Date: Expected LOS: 10 Initial Reviewer: [id number] Initial Review Date: 07/05/2019 Generated: 07/12/19 2:38 pm Comments DCP- Discharge Planning Updated by [id number]: Geremias Diego on 07/12/19 12:[address] Patient Name: MOHINI AUGUSTIN Encounter No: [id number] : 1945 Primary Insurance: AETNA MEDICARE PPO or HMO Anticipated DC Date: 07-12-2019 Planned Disposition: Detention Facility External Planned Provider: [facility], MEDICARE REHAB BED DCP follow-up note: CM SPOKE TO [facility], THEY WILL ACCEPT PT TODAY AND HAVE RECEIVED AUTHORIZATION FROM PT'S INSURANCE. CM NOTIFED NAY GASTELUM AND RECEIVED DISCHARGE ORDERS. CM NOTIFED PT AND SPOUSE IN ROOM, BOTH IN AGREEMENT WITH PLAN. CM FAXED DISCHARGE INFORMATION TO [facility] AT [phone]; NURSE REPORT TO BE CALLED TO [facility] AT [phone]. [facility] TO ARRANGE VAN TRANSPORTATION. Geremias Diego CASE RAVI DCP- Discharge Planning Updated by [id number]: Geremias Diego on 07/11/19 10:[address] Patient Name: MOHINI AUGUSTIN Encounter No: [id number] : 1945 Primary Insurance: AETNA MEDICARE PPO or HMO Anticipated DC Date: 07-11-2019 Planned Disposition: Detention Facility External Planned Provider:[facility], MEDICARE REHAB BED DCP follow-up note: CM RECEIVED CALL FROM SERAFIN BRAUN [facility], , THEY ARE NOT IN NETWORK WITH PT'S INSURANCE, INFORMED CM THAT [facility] AND [facility] ARE. CM CALLED AND SPOKE TO TAMMY AT [facility], , VERIFIED REFERRAL RECEIPT. CM ASKED FOR EXPEDITED PROCESSING CM WAITING DETERMINATION FROM [facility]. Geremias Diego CASE MANAGEMENT DCP- Discharge Planning Updated by [id number]: Geremias Diego on 07/11/19 8:[address] Patient Name: MOHINI AUGUSTIN Encounter No: [id number] : 1945 Primary Insurance: AETNA MEDICARE PPO or HMO Anticipated DC Date: 07-11-2019 Planned Disposition: Detention Facility External Planned Provider: [facility], MEDICARE REHAB BED DCP follow-up note: CM RECEIVED REQUEST FROM FAMILY TO MEET WITH THEM REGARDING DISCHARGE PLANNING. CM MET WITH PT AND SPOUSE IN ROOM. PT'S SPOUSE REPORTS THAT IF PT GETS DOWN AT HOME, HE IS NOT GOING TO BE ABLE TO GET HER UP. THEY WANT REHAB AT [facility]; SECOND CHOICE WOULD BE [facility]. CM EXPLAINED THAT THE FACILITY WILL HAVE TO BE IN INSURANCE NETWORK AND WILL REQUIRE AUTHORIZATION FROM INSURANCE. CHOICE SIGNED FOR [facility] AND [facility]. IMPORTANT MESSAGE FROM MEDICARE PROVIDED. CM FAXED REFERRAL INFORMATION TO [facility] AT [phone]. CM CALLED MESERET AT [facility], , SHE DOES NOT KNOW IF THEY ARE IN NETWORK WITH PT'S INSURANCE AND WILL SCREEN PT WHEN REFERRAL RECEIVED. CM FAXED REFERRAL INFORMATION TO [facility] AT [phone], CM CALLED AND LEFT MESSAGE FOR MAYITO AT [facility], AND PROVIDED REFERRAL INFORMATION. CM WAITING DETERMINATION FROM [facility] AND [facility]. SINDI Bob DCP- Discharge Planning Updated by [id number]: Geremias Diego on 07/09/19 4:[address] Patient Name: MOHINI AUGUSTIN Encounter No: [id number] : 1945 Primary Insurance: AETNA MEDICARE PPO or HMO Anticipated DC Date: 07-09-2019 Planned Disposition: Home with Home Health External Planned Provider: [facility] DCP follow-up note: LATE ENTRY FROM 07-08-19, APPROXIMATELY 1700 HOURS; CM SPOKE TO [facility], PT'S INSURANCE DECLINED INPATIENT REHAB. CM MET WITH PT AND FAMILY IN ROOM TO DISCUSS DISCHARGE PLANNING. PT GAVE PERMISSION TO DISCUSS WITH ALL FAMILY PRESENT. CM DISCUSSED INSURANCE DENIAL OF INPATIENT REHAB DUE TO HIGH LEVEL OF FUNCTIONING. CM DISCUSSED AVAILABILITY OF [facility], OUTPATIENT REHAB, HOME HEALTH AND MEDICAL EQUIPMENT. PT'S FAMILY ASKED TO SPEAK ALONE. CM LEFT AND RETURNED APPROXIMATELY 45 MINUTES LATER. PT AND SPOUSE HAVE DECIDED THAT THEY WILL GO HOME WITH [facility] FOR THERAPY SERVICES, CHOICE SIGNED. CM PROVIDED PT WITH INFORMATION TO [facility] REFERRAL SERVICE AND CONTACT INFORMATION TO [facility] ON [address] TO INQUIRE REGARDING LAY OUT FORMER SUNG FUNDING. PT AND SPOUSE DENY FURTHER NEEDS FOR DISCHARGE HOME. PT PLANS TO DISCHARGE HOME WITH ASSISTANCE OF SPOUSE, PT WOULD LIKE HOME HEALTH WITH [facility], CM TO ARRANGE WITH PHYSICIAN AGREEMENT AND ORDERS FOR HOME HEALTH. CM TO CONTINUE TO FOLLOW AND ASSIST NEEDED. Geremias Diego, CASE MANAGEMENT Appended by Geremias Diego on 07/09/2019 13:29 MEAT INSPECTOR: CM RECEIVED HOME HEALTH ORDER, CALLED AND SPOKE TO ESTEBAN AT [facility], THEY ARE OUT OF PT'S INSURANCE NETWORK. CM DISCUSSED OTHER HOME HEALTH AGENCIES IN [place], PT HAS NO PROVIDER CHOICE IF [facility] IS OUT OF NETWORK. CHOICE WAS PREVIOUSLY SIGNED. CM CALLED [facility], , SPOKE TO LINETTE AND PROVIDED REFERRAL INFORMATION, FAXED REFERRAL TO [facility] AT [phone]. [facility] TO ENSURE THEY ARE IN NETWORK WITH PT'S INSURANCE AND NOTIFY CM SHORTLY. PT PLANS TO DISCHARGE HOME WITH ASSISTANCE OF SPOUSE, CM WAITING CALL FROM [facility] TO ENSURE THEY ARE IN PT'S INSURANCE NETWORK. CM TO CONTINUE TO FOLLOW AND ASSIST NEEDED. Geremias Diego, CASE MANAGEMENT Appended by Geremias Diego on 07/09/2019 17:35 MEAT INSPECTOR: CM SPOKE TO LINETTE OF [facility], THEY WILL ACCEPT FOR HOME HEALTH AND ARE IN NETWORK FOR HOME HEALTH; PT ON SCHEDULE NOW FOR MONDAY. PT'S SPOUSE NOTIFIED. FOR DISCHARGE, NOTIFY [facility], , FAX DISCHARGE INFORMATION TO [facility] AT [phone]. SINDI BOB MANAGEMENT DCP- Discharge Planning Updated by [id number]: Bree Ghosh on 07/05/19 11:[address] Patient Name: MOHINI AUGUSTIN Admission Status: ER Accout number: [id number] Admission Date: 07-02-2019 : 1945 Admission Diagnosis: Attending: LUKE MARCOS Current LOS: 3 Anticipated DC Date: Planned Disposition: Inpatient Rehab Primary Insurance: AETNA MEDICARE PPO or HMO Discharge Planning Comments: CM MET WITH PATIENT AFTER OBTAINING VERBAL CONSENT. PATIENT PLANS TO DC TO [facility] SOON. IMM SIGNED. FAMILY AT BEDSIDE. CM TO FOLLOW AND ASSIST NEEDED. Motor Setter: Bree Ghosh DCPIA - Discharge Planning Initial Assessment Updated by [id number]: Bree Ghosh on 07/05/19 12:31 pm * Is the patient Alert and Oriented? Yes * PCP ROWDY * Pharmacy [facility] * Preadmission Environment Home with Family * ADLs Independent * Other Equipment 02, NEBS WITH [employer] * Community resources currently utilized None * Additional services required to return to the preadmission environment? Yes * Can the patient safely return to the preadmission environment? Yes * Has this patient been hospitalized within the prior 30 days at any hospital? No Coverage Notice Reviewer: [id number] - Bree Ghosh Notice Issued Date-Time: 07/05/2019 12:30 Notice Type: IM Discharge Notice Notice Delivered To: Patient Relationship to Patient: System Support Technician Name: Delivery Method: HAND - Hand Delivered Igsela Days: Prior Verbal Notification: Recipient Understood Notice: Yes Recipient Signature: Yes Med Rec Note Co-signed by Attending: Coverage Notice Comment: Reviewer: [id number] Diego Notice Issued Date-Time: 07/11/2019 8:10 Notice Type: IM Discharge Notice Notice Delivered To: Family Member Relationship to Patient: Spouse System Support Technician Name: TONY AUGUSTIN Delivery Method: - Gisela Days: Prior Verbal Notification: Recipient Understood Notice: Recipient Signature: Med Rec Note Co-signed by Attending: Coverage Notice Comment: Reviewer: [id number] Diego Notice Issued Date-Time: 07/09/2019 17:02 Notice Type: IM Discharge Notice Notice Delivered To: Family Member Relationship to Patient: Spouse System Support Technician Name: TONY AUGUSTIN Delivery Method: HAND - Hand Delivered Gisela Days: Prior Verbal Notification: Recipient Understood Notice: Yes Recipient Signature: Yes Med Rec Note Co-signed by Attending: Coverage Notice Comment: Reviewer: [id number] Diego Notice Issued Date-Time: 07/11/2019 8:10 Notice Type: Patient Choice Letter Notice Delivered To: Family Member Relationship to Patient: Spouse System Support Technician Name: TONY AUGUSTIN Delivery Method: HAND - Hand Delivered Gisela Days: Prior Verbal Notification: Recipient Understood Notice: Recipient Signature: Med Rec Note Co-signed by Attending: Coverage Notice Comment: JOHNNIE YUAN Reviewer: [id number] Ainsley Diego Notice Issued Date-Time: 07/08/2019 17:02 Notice Type: Patient Choice Letter Notice Delivered To: Family Member Relationship to Patient: Spouse System Support Technician Name: TONY AUGUSTIN Delivery Method: HAND - Hand Delivered Gisela Days: Prior Verbal Notification: Recipient Understood Notice: Yes Recipient Signature: Yes Med Rec Note Co-signed by Attending: Coverage Notice Comment: [facility] Last DP export: 07/12/19 12:28 pm Patient Name: MOHINI AUGUSTIN Page [id number] at 1338 All edits/amendments must be made on the electronic document DICTATION DATE: 07/12/19 1338 REHABILITATION SERVICES COUNSELOR: ETIENNE 07/12/19 1338 RPT#: [id number] DC DATE: STATUS: ADM IN [facility] [address] [place] [address] END OF REPORT
--- NOTE | 2019-07-12 14:57 | NUR ---
REPORT CALLED TO [facility]. FACILITY VAN HERE FOR TRANSPORTATION. FAMILY WITH PT. INSTRUCTIONS SIGNED.
--- NOTE | 2019-07-12 16:45 | NUR ---
OT NOTE: PT COMPLETED SUPINE TO SIT WITH CGA. PT COMPLETED SIT TO STAND WITH CGA. PT COMPLETED UE AROM AXS. 11:16 THANK YOU,NATALEE FINLEY
--- NOTE | 2019-07-15 08:42 | MORECARE ---
CASE MANAGEMENT DISCHARGE SUMMARY PATIENT: MOHINI AUGUSTIN UNIT: [id number] ADM DATE: 07/02/19 AGE: 74 : 43 SEX: F ROOM/BED: D.2102 AUTHOR: ROBI,DOC PHYSICIAN: REFERRING PHYSICIAN: LUKE MARCOS MD DATE OF SERVICE: 07/15/19 Discharge Plan Patient Name: MOHINI AUGUSTIN Facility: [facility]:[place] : 1945 Planned Disposition: [facility] Facility Anticipated Discharge Date: 07/12/19 Discharge Date: 07/12/2019 Expected LOS: 10 Initial Reviewer: [id number] Initial Review Date: 07/05/2019 Generated: 07/15/19 9:41 am Comments DCP- Discharge Planning Updated by [id number]: Geremias Diego on 07/12/19 11:[address] Patient Name: MOHINI AUGUSTIN Encounter No: [id number] : 1945 Primary Insurance: AETNA MEDICARE PPO or HMO Anticipated DC Date: 07-12-2019 Planned Disposition: [facility] Facility External Planned Provider: [facility], MEDICARE REHAB BED DCP follow-up note: CM SPOKE TO [facility]O [facility], THEY WILL ACCEPT PT TODAY AND HAVE RECEIVED AUTHORIZATION FROM PT'S INSURANCE. CM NOTIFED NAY GASTELUM AND RECEIVED DISCHARGE ORDERS. CM NOTIFED PT AND SPOUSE IN ROOM, BOTH IN AGREEMENT WITH PLAN. CM [facility] [phone]; NURSE REPORT TO BE CALLED TO [facility] AT [phone]. [facility] TO [facility]AN TRANSPORTATION. Geremias Diego, CASE MANAGEMENT DCP- Discharge Planning Updated by [id number]: Geremias Diego on 07/11/19 9:[address] Patient Name: MOHINI AUGUSTIN Encounter No: [id number] : 1945 Primary Insurance: AETNA MEDICARE PPO or HMO Anticipated DC Date: 07-11-2019 Planned Disposition: [facility] Facility External Planned Provider[facility], MEDICARE REHAB BED DCP follow-up note: CM RECEIVED CALL FROM SERAFIN BRAUN [facility], , THEY ARE NOT IN NETWORK WITH PT'S INSURANCE, INFORMED CM THAT [facility]. CM CALLED AND SPOKE TO TAMMY AT [facility], , VERIFIED REFERRAL RECEIPT. CM ASKED FOR EXPEDITED PROCESSING CM WAITING DETERMINATION FROM [facility]. Geremias Diego CASE MANAGEMENT DCP- Discharge Planning Updated by [id number]: Geremias Diego on 07/11/19 7:[address] Patient Name: MOHINI AUGUSTIN Encounter No: [id number] : 1945 Primary Insurance: AETNA MEDICARE PPO or HMO Anticipated DC Date: 07-11-2019 Planned Disposition: [facility] Facility External Planned Provider: [facility], MEDICARE REHAB BED DCP follow-up note: CM RECEIVED REQUEST FROM FAMILY TO MEET WITH THEM REGARDING DISCHARGE PLANNING. CM MET WITH PT AND SPOUSE IN ROOM. PT'S SPOUSE REPORTS THAT IF PT GETS DOWN AT HOME, HE IS NOT GOING TO BE ABLE TO GET HER UP. THEY WANT REHAB AT [facility]; [facility]OND [facility]. CM EXPLAINED THAT THE FACILITY WILL HAVE TO BE IN INSURANCE NETWORK AND WILL REQUIRE AUTHORIZATION FROM INSURANCE. CHOICE SIGNED FOR [facility] AND [facility]. IMPORTANT MESSAGE FROM MEDICARE PROVIDED. CM FAXED REFERRAL INFORMATION TO [facility] AT [phone]. CM CALLED MESERET AT [facility], , SHE DOES NOT KNOW IF THEY ARE IN NETWORK WITH PT'S INSURANCE AND WILL SCREEN PT WHEN REFERRAL RECEIVED. CM FA[facility]ED [facility]FERRAL INFORMATION TO [facility] AT [phone], CM CALLED AND LEFT MESSAGE FOR MAY[facility]O AT [facility], AND PROVIDED REFERRAL INFORMATION. CM WAITING DETERMINATION FROM [facility]. SINDI Bob DCP- Discharge Planning Updated by [id number]: Geremias Diego on 07/09/19 3:[address] Patient Name: MOHINI AUGUSTIN Encounter No: [id number] : 1945 Primary Insurance: AETNA MEDICARE PPO or HMO Anticipated DC Date: 07-09-2019 Planned Disposition: Home with Home Health External Planned Provider: [facility] DCP follow-up note: LATE ENTRY FROM 07-08-19, APPROXIMATELY 1700 HOURS; CM SPOKE TO [facility], PT'S INSURANCE DECLINED INPATIENT REHAB. CM MET WITH PT AND FAMILY IN ROOM TO DISCUSS DISCHARGE PLANNING. PT GAVE PERMISSION TO DISCUSS WITH ALL FAMILY PRESENT. CM DISCUSSED INSURANCE DENIAL OF INPATIENT REHAB DUE TO HIGH LEVEL OF FUNCTIONING. CM DISCUSSED AVAILABILITY OF LONG TERM REHAB, OUTPATIENT REHAB, HOME HEALTH AND MEDICAL EQUIPMENT. PT'S FAMILY ASKED TO SPEAK ALONE. CM LEFT AND RETURNED APPROXIMATELY 45 MINUTES LATER. PT AND SPOUSE HAVE DECIDED THAT THEY WILL GO HOME WITH [facility] FOR THERAPY SERVICES, CHOICE SIGNED. 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 PT AND SPOUSE DENY FURTHER NEEDS FOR DISCHARGE HOME. PT PLANS TO DISCHARGE HOME WITH ASSISTANCE OF SPOUSE, PT WOULD LIKE HOME HEALTH WITH [facility], CM TO ARRANGE WITH PHYSICIAN AGREEMENT AND ORDERS FOR HOME HEALTH. CM TO CONTINUE TO FOLLOW AND ASSIST NEEDED. Geremias Diego, CASE MANAGEMENT Appended by Geremias Diego on 07/09/2019 13:29 ENGINE GENERATOR ASSEMBLER: CM RECEIVED HOME HEALTH ORDER, CALLED AND SPOKE TO ESTEBAN AT [facility], THEY ARE OUT OF PT'S INSURANCE NETWORK. CM DISCUSSED OTHER HOME HEALTH AGENCIES IN PURCHASE, PT HAS NO PROVIDER CHOICE IF [facility] IS OUT OF NETWORK. CHOICE WAS PREVIOUSLY SIGNED. CM CALLED [facility], , SPOKE TO LINETTE AND PROVIDED REFERRAL INFORMATION, FAXED REFERRAL TO [facility] AT [phone]. [facility] TO ENSURE THEY ARE IN NETWORK WITH PT'S INSURANCE AND NOTIFY CM SHORTLY. PT PLANS TO DISCHARGE HOME WITH ASSISTANCE OF SPOUSE, CM WAITING CALL FROM [facility] TO ENSURE THEY ARE IN PT'S INSURANCE NETWORK. CM TO CONTINUE TO FOLLOW AND ASSIST NEEDED. Geremias Diego CASE MANAGEMENT Appended by Geremias Diego on 07/09/2019 17:35 ENGINE GENERATOR ASSEMBLER: CM SPOKE TO LINETTE OF [facility], THEY WILL ACCEPT FOR HOME HEALTH AND ARE IN NETWORK FOR HOME HEALTH; PT ON SCHEDULE NOW FOR MONDAY. PT'S SPOUSE NOTIFIED. FOR DISCHARGE, NOTIFY [facility], , FAX DISCHARGE INFORMATION TO [facility] AT [phone]. SINDI BOB DCP- Discharge Planning Updated by [id number]: Bree Ghosh on 07/05/19 10:[address] Patient Name: MOHINI AUGUSTIN Admission Status: ER Accout number: [id number] Admission Date: 07-02-2019 : 1945 Admission Diagnosis: Attending: LUKE MARCOS Current LOS: 3 Anticipated DC Date: Planned Disposition: Inpatient Rehab Primary Insurance: AETNA MEDICARE PPO or HMO Discharge Planning Comments: CM MET WITH PATIENT AFTER OBTAINING VERBAL CONSENT. PATIENT PLANS TO DC TO [facility] SOON. IMM SIGNED. FAMILY AT BEDSIDE. CM TO FOLLOW AND ASSIST NEEDED. Document Restorer: Bree Ghosh DCPIA - Discharge Planning Initial Assessment Updated by [id number]: Bree Ghosh on 07/05/19 12:31 pm * Is the patient Alert and Oriented? Yes * PCP ROWDY * [facility] * Preadmission Environment Home with Family * ADLs Independent * Other Equipment 02, NEBS WITH [employer] * Community resources currently utilized None * Additional services required to return to the preadmission environment? Yes * Can the patient safely return to the preadmission environment? Yes * Has this patient been hospitalized within the prior 30 days at any hospital? No Coverage Notice Reviewer: [id number] Ainsley Ghosh Notice Issued Date-Time: 07/05/2019 12:30 Notice Type: IM Discharge Notice Notice Delivered To: Patient Relationship to Patient: Lodging Facilities Manager Name: Delivery Method: HAND - Hand Delivered Gisela Days: Prior Verbal Notification: Recipient Understood Notice: Yes Recipient Signature: Yes Med Rec Note Co-signed by Attending: Coverage Notice Comment: Reviewer: LESLY Diego Notice Issued Date-Time: 07/09/2019 17:02 Notice Type: IM Discharge Notice Notice Delivered To: Family Member Relationship to Patient: Spouse Lodging Facilities Manager Name: TONY AUGUSTIN Delivery Method: HAND - Hand Delivered Gisela Days: Prior Verbal Notification: Recipient Understood Notice: Yes Recipient Signature: Yes Med Rec Note Co-signed by Attending: Coverage Notice Comment: Reviewer: [id number] Diego Notice Issued Date-Time: 07/08/2019 17:02 Notice Type: Patient Choice Letter Notice Delivered To: Family Member Relationship to Patient: Spouse Lodging Facilities Manager Name: TONY AUGUSTIN Delivery Method: HAND - Hand Delivered Gisela Days: Prior Verbal Notification: Recipient Understood Notice: Yes Recipient Signature: Yes Med Rec Note Co-signed by Attending: Coverage Notice Comment: [facility] Reviewer: LESLY Diego Notice Issued Date-Time: 07/11/2019 8:10 Notice Type: IM Discharge Notice Notice Delivered To: Family Member Relationship to Patient: Spouse Lodging Facilities Manager Name: TONY AUGUSTIN Delivery Method: - Gisela Days: Prior Verbal Notification: Recipient Understood Notice: Recipient Signature: Med Rec Note Co-signed by Attending: Coverage Notice Comment: Reviewer: [id number] - Geremias Diego Notice Issued Date-Time: 07/11/2019 8:10 Notice Type: Patient Choice Letter Notice Delivered To: Family Member Relationship to Patient: Spouse Lodging Facilities Manager Name: TONY AUGUSTIN Delivery Method: HAND - Hand Delivered Gisela Days: Prior Verbal Notification: Recipient Understood Notice: Recipient Signature: Med Rec Note Co-signed by Attending: Coverage Notice Comment: JOHNNIE YUAN Last DP export: 07/12/19 11:38 am Patient Name: MOHINI AUGUSTIN Page [id number] at 0842 All edits/amendments must be made on the electronic document DICTATION DATE: 07/15/19840 WOODWORK TEACHER: ETIENNE 07/15/19840 RPT#: [id number] DC DATE:07/12/19 STATUS: DIS IN [facility] [address] [place] [address] END OF REPORT
== END 2019-07-12 14:58 | DRG 441 ==
LOC: D.ER 00:09 → D.M2 02:04
PROVIDERS: Emergency Medicine; Family Medicine; General Practice; Internal Medicine Gastroenterology; Radiology Vascular & Interventional Radiology; Specialist; ADMIT Internal Medicine Nephrology; ATTEND Internal Medicine Nephrology
PROC: 0W9G3ZZ Drainage of Peritoneal Cavity, Percutaneous Approach (ICD-10-PCS; principal; 2019-07-03 16:23)
PROC: 0W9G3ZZ Drainage of Peritoneal Cavity, Percutaneous Approach (ICD-10-PCS; 2019-07-10)
DX: K72.90 Hepatic failure, unspecified without coma (principal); I50.31 Acute diastolic (congestive) heart failure; R18.8 Other ascites; N17.9 Acute kidney failure, unspecified; E44.0 Moderate protein-calorie malnutrition; K74.60 Unspecified cirrhosis of liver; K80.20 Calculus of gallbladder without cholecystitis without obstruction; I11.0 Hypertensive heart disease with heart failure; D64.9 Anemia, unspecified; E11.9 Type 2 diabetes mellitus without complications

== ENCOUNTER 2019-07-19 09:31 | Emergency (ER) | payer MEDICARE ==
[~2019-07-19] VITALS: Ht 167.6 cm; Wt 68.2 kg
[~2019-07-19 09:31] MED LIST changes: +ALDACTONE100 MG PO; +CHRONULAC30 ML PO; +LASIX40 MG PO; +XIFAXAN550 MG PO
[2019-07-19 09:38] VITALS: Ht 167.6 cm; Wt 68.2 kg
[2019-07-19 10:34] LABS: BASOPHILS 0.4 % (0-2); EOSINOPHILS 1.3 % (0-7); HEMATOCRIT 34.7 % (36.0-48.0); HEMOGLOBIN 12.4 g/dL (12-16); IMMATURE GRANULOCYTES 0.8 % (0-5); LYMPHOCYTES 12.9 % (15-50); MCH 31.9 pg (26.0-34.0); MCHC 35.7 g/dL (31.0-37.0); MCV 89.2 fL (80.0-100.0); MEAN PLATELET VOLUME 10.4 fL (7.4-10.4); MONOCYTES 17.4 % (2-11); NEUTROPHILS 67.2 % (40-80); RBC 3.89 10x6/uL (4.00-5.40); RDW 16.2 % (11.5-14.5); WBC 7.5 10x3/uL (4.8-10.8)
[2019-07-19 10:41] LABS: PLATELET COUNT 204 10x3/uL (130-400)
[2019-07-19 10:49] LABS: CALC OSMOLALITY 255 mosm/kg (275-300); CALCIUM 8.2 mg/dL (8.5-10.1); CARBON DIOXIDE 27.8 mmol/L (21.0-32.0); CHLORIDE - SERUM 92 mmol/L (98-107); CREATININE - SERUM 1.3 mg/dL (0.6-1.3); GLUCOSE 94 mg/dL (74-106); POTASSIUM - SERUM 3.9 mmol/L (3.5-5.1); SODIUM 126 mmol/L (136-145); UREA NITROGEN 21 mg/dL (7-18); eGFR NON AFRICAN AMERICAN 42 mL/min (90-120)
[2019-07-19 10:54] LABS: BILIRUBIN NEGATIVE (NEGATIVE); GLUCOSE NEGATIVE (NEGATIVE); KETONE NEGATIVE (NEGATIVE); NITRITE NEGATIVE (NEGATIVE); SPECIFIC GRAVITY 1.015 (1.005-1.020); UROBILINOGEN NORMAL (NORMAL)
[2019-07-19 10:56] LABS: BACTERIA FEW /hpf (NEGATIVE); EPITHELIAL CELLS 0-5 /hpf (0-5); RED CELLS - URINE RARE /hpf (0-5); WHITE CELLS - URINE OCC /hpf (NEGATIVE)
[2019-07-19 10:57] LABS: AMORPHOUS SEDIMENT <1+ /lpf (NONE SEEN)
[2019-07-19 11:10] LABS: ALBUMIN 2.1 g/dL (3.4-5.0); ALKALINE PHOSPHATASE 125 U/L (30-120); ALT (SGPT) 29 U/L (10-68); BILIRUBIN - TOTAL 3.18 mg/dL (0.2-1.3); CKMB 3.8 U/L (0.0-3.6); CREATINE KINASE 54 UL (21-215); PRO BNP 1316 pg/mL (0-450); PROTEIN - SERUM 6.6 g/dL (6.4-8.2)
[2019-07-19 11:15] LABS: TROPONIN-I 0.081 ng/mL (0.000-0.060)
[2019-07-19 11:33] LABS: INR 1.38 (0.85-1.17); PROTIME 16.8 SECONDS (11.6-15.0)
[2019-07-19 11:34] LABS: APTT 36.2 SECONDS (22.8-39.4)
[2019-07-19 15:35] VITALS: BP 114/77
== END 2019-07-19 15:37 | disposition home or self-care (01) ==
LOC: D.ER 09:31
PROVIDERS: Family Medicine
DX: R18.8 Other ascites (principal); K76.9 Liver disease, unspecified; Z98.890 Other specified postprocedural states; Z51.5 Encounter for palliative care; E11.9 Type 2 diabetes mellitus without complications; I10 Essential (primary) hypertension; R06.02 Shortness of breath; Z20.828 Contact with and (suspected) exposure to other viral communicable diseases

== ENCOUNTER 2019-07-30 06:35 | Outpatient (CLI) | payer MEDICARE ==
[~2019-07-30] VITALS: Ht 162.6 cm; Wt 68.2 kg
--- NOTE | ~2019-07-30 | HEMODYNAMI ---
PATIENT:MOHINI AUGUSTIN MEDICAL RECORD: [id number] : 41 LOCATION:[facility] ADMISSION DATE: 07/30/19 Generatedon:07/30/201910:41 Patient name: MOHINI AUGUSTIN Patient #: [id number] SSN: : Date of study: 07/30/2019 Page: Of Hemodynamic Procedure Report Patient Data Patient Demographics Procedure consent was obtained First Name: MOHINI Gender: Female Last Name: DEMETRIA : 1945 Patient #: [id number] Age: 74 year(s) Race: Unknown Additional ID: [id number] Contact details Address: [address] [place] [address] circle State: [place] City: [facility] [place], [place] Zip code: [address] Admission Admission Data Admission Date: 07/30/2019 Admission Time: 6:35 Procedure Procedure Types Cath Procedure Peripheral Cath Diagnostic Procedure Miscellaneous Pleurex Pleurex Cath Place w/ Imaging Procedure Description Procedure Date Procedure Date: 07/30/2019 Procedure Start Time: 9:48 Procedure Staff Name Function Madan Montes RT Monitor Eloy Curry MD Performing Physician Mary Sotelo RN Nurse PAULINA OSCAR RT Scrub Procedure Data Cath Procedure Fluoroscopy Diagnostic fluoroscopy Total fluoroscopy Time: 0.6 time: 0.6 min min Diagnostic fluoroscopy Total fluoroscopy dose: 23 dose: 23 mGy mGy Procedure Medications Medication Administration Route Dosage Rocephin I.V. 1 g Heparin Flush Bag added to field 2 bags (1000units/500ml NS) Lidocaine 1% added to field 20 Versed I.V. 1 mg Fentanyl I.V. 50 mcg Versed I.V. 0.5 mg Fentanyl I.V. 25 mcg Hemodynamics Rest Heart Rate: 64 (bpm) Snapshots Pre Cath Intra NCS Post Cath Vital Signs Time Heart Resp SPO2 etCO2 NIBP (mmHg) Rhythm Pain Sedation Rate (ipm) (%) (mmHg) Status Level (bpm) 9:18:44 64 15 20.1 124/62(86) NSR 0 (11) 10(A) , No pain 9:22:50 64 14 20.9 120/74(102) NSR 0 (11) 10(A) , No pain 9:26:58 64 14 100 20.9 131/59(86) NSR 0 (11) 10(A) , No pain 9:31:10 62 13 100 20.9 134/60(98) NSR 0 (11) 10(A) , No pain 9:35:23 63 13 100 21.6 129/59(101) NSR 0 (11) 10(A) , No pain 9:39:36 61 12 100 20.9 131/56(101) NSR 0 (11) 10(A) , No pain 9:43:50 61 12 100 21.6 127/55(98) NSR 0 (11) 10(A) , No pain 9:48:01 60 12 100 20.1 125/57(102) NSR 0 (11) 10(A) , No pain 9:52:15 59 13 100 19.3 117/48(93) NSR 0 (11) 8(A) , No pain 9:56:25 60 13 100 17.9 119/52(85) NSR 0 (11) 8(A) , No pain 10:00:35 60 8 100 18.6 120/56(80) NSR 0 (11) 8(A) , No pain 10:04:47 60 7 100 16.4 111/49(81) NSR 0 (11) 8(A) , No pain 10:08:55 60 6 100 11.2 96/49(77) NSR 0 (11) 8(A) , No pain 10:12:59 59 10 100 11.9 97/49(79) NSR 0 (11) 8(A) , No pain 10:17:03 59 6 100 12.6 105/51(84) NSR 0 (11) 8(A) , No pain 10:21:10 59 6 100 11.9 107/47(80) NSR 0 (11) 8(A) , No pain 10:25:16 58 7 100 11.9 108/52(84) NSR 0 (11) 8(A) , No pain 10:29:26 58 7 100 0 100/45(80) NSR 0 (11) 8(A) , No pain 10:33:03 59 6 100 0 111/51(90) NSR 0 (11) 8(A) , No pain 10:39:53 57 6 100 0.7 100/53(83) NSR 0 (11) 8(A) , No pain Medications Time Medication Route Dose Verified Delivered Reason Notes Effe ctiveness by by 9:25:59 Rocephin I.V. 1 g Eloy Hernandez Per Deepak Curry RN physician 9:26:31 Heparin Flush added 2 Eloy Lyons used for Bag to bags Patricio Curry MD procedure (1000units/500ml field ABBOTT NS) 9:26:49 Lidocaine 1% added 20ml Eloy Lyons for local to vial Patricio Curry MD anesthetic field ABBOTT 9:49:36 Versed I.V. 1 mg Eloy Hernandez for Deepak Curry RN sedation 9:49:48 Fentanyl I.V. 50 Eloy Hernandez for mcg Deepak Curry RN sedation 10:10:06 Versed I.V. 0.5 Eloy Hernandez for mg Deepak Curry RN sedation 10:10:16 Fentanyl I.V. 25 Eloy Hernandez for mcg Deepak Curry RN sedation Procedure Log Time Note 9:01:00 Madan Montes RT (R) (CV) sent for patient. Start room use. 9:01:10 Time tracking: Regular hours (M-F 7:00 - 5:00) 9:01:15 Plan of Care:Hemodynamics will remain stable., Cardiac rhythm will remain stable., Comfort level will be maintained., Respiratory function will remain adequate., Patient/ family verbilizes understanding of procedure., Procedure tolerated without complication., Recovers from procedure without complications.. 9:01:21 Patient received from Outpatients to IR Alert and oriented. Tansferred to table in Supine position. 9::25 Signed procedure consent form obtained from patient. :: Correct patient and procedure confirmed by team. 9::27 Full Disclosure recording started 9::28 - 9:01:33 H&P Date Dictated: 07/30/2019 H&P Addendum completed by physician on day of procedure. (MUST COMPLETE FOR ALL OUTPATIENTS). 9:01:35 Pre-op teaching completed and patient verbalized understanding. 9:01:35 Pre-procedure instructions explained to patient. 9:01:42 Use device set IR Diagnostic 9:01:43 Sterile Angiographic Pack opened to sterile field. 9:01:43 Bag Decanter (2001S) opened to sterile field. 9:01:44 Tegaderm 4 x 4 ([id number]) opened to sterile field. 9:01:58 Family in waiting room. 9:02:00 Patient NPO since Midnight. 9:02:05 Is the patient allergic to Iodine/contrast media? No. 9:02:11 Is patient on blood thinner?No 9:02:17 Patient diabetic? No. 9:02:18 ----Pre-sedation anethsthesia assessment.---- 9:02:18 - 9:02:21 Previous problem with sedation/anesthesia? No ? 9:02:23 Snore? Yes 9:02:25 Sleep apnea? No 9:02:26 Deviated septum? No 9:02:28 Opens mouth fully? Yes 9:02:29 Sticks out tongue? Yes 9:02:33 Airway obstruction? No ? 9:02:37 Dentures? Yes in 9:10:29 IV patent on arrival in left forearm with 0.9% NaCl at [facility]. 9:10:30 Sharps counted by scrub and verified by RZanaNZana 9:10:31 Alarms reviewed by Anoop Weir 9:10:46 Right Abdomen was prepped with chlora-prep and draped in sterile fashion. 9:10:54 Patient pain scale 0/10 no pain. 9:17:28 Vital chart was started 9:17:28 ECG and BP/O2 sat monitors applied to patient. 9:17:29 Baseline sample Acquired. 9:25:59 Rocephin 1 g I.V. was administered by Mary Sotelo RN; Per physician; Verbal order read back and verified. 9:26:31 Heparin Flush Bag (1000units/500ml NS) 2 bags added to field was administered by Eloy Curry MD; used for procedure; Verbal order read back and verified. 9:26:49 Lidocaine 1% 20ml vial added to field was administered by Eloy Curry MD; for local anesthetic; Verbal order read back and verified. 9:47:18 Physician arrived 9:47:22 --------ALL STOP TIME OUT------ 9:47:25 Final Timeout: patient, procedure, and site verified with staff and physician. All members of the team are in agreement. 9:47:29 Right abdomen site verified by team. 9:47:34 Fire Safety Assessment: A--An alcohol-based skin anteseptic being used preoperatively., C--Open oxygen or nitrous oxide is being used. 9:47:48 Sedation plan: IV Moderate Sedation Medication:Versed, Fentanyl 9:48:04 Procedure started. 9:48:08 Local anesthetic to Abdominal area with Lidocaine 1% by Eloy Curry MD.INITIAL ACCESS ONLY 9:48:44 PLEURX PERITON drainage catheter ([id number]) opened to sterile field. 9:49:36 Versed 1 mg I.V. was administered by Mary Sotelo RN; for sedation; Verbal order read back and verified. 9:49:48 Fentanyl 50 mcg I.V. was administered by Mary Sotelo RN; for sedation ; Verbal order read back and verified. 9:52:41 Micropuncture VSI 4FR kit opened to sterile field. 9:58:15 AMPLATZ Super Stiff 75cm wire ([id number]) opened to sterile field. 10:06:39 3-0 Vicryl Single Pack [id number] opened to sterile field. 10:10:06 Versed 0.5 mg I.V. was administered by Mary Sotelo RN; for sedation; Verbal order read back and verified. 10:10:16 Fentanyl 25 mcg I.V. was administered by Mary Sotelo RN; for sedation ; Verbal order read back and verified. 10:17:18 PLEURX PROCEDURE GIL (90-4318) opened to sterile field. 10:17:27 PLEURX PROCEDURE GIL (65-5969) opened to sterile field. 10:17:29 PLEURX PROCEDURE GIL (18-2078) opened to sterile field. 10:20:14 Procedure ended.(Physican Out) 10:21:27 Fluoroscopy time 00.60 minutes. 10:21:30 Fluoroscopy dose: 23 mGy 10:21:30 Flurop Dose total: 23 10:21:43 Sharps counted by scrub and verified by R.N. 10:22:00 Post Abdominal area:stable 10:22:07 Post-op/insertion site Right Abdominal area dressed using a 4 x 4 and Tegaderm. 10:22:15 Procedure and supply charges have been captured, reviewed, submitted an d are correct. 10:22:18 Post procedure instruction explained to patient.Patient verbalizes understanding. 10:29:51 Report given to Outpatients. 10:30:42 Full Disclosure recording stopped 10:40:44 Patient transfered to Outpatients with Stretcher. 10:40:48 Report given to Outpatients. Device Usage Item Name Manufacture Quantity Catalog Hospital Part Current Minima l Lot# / Number Charge Number Stock Stock Serial# Code Bag Decanter Microtek 1 [id number] 5 () [employer] Sterile Cardinal 1 [id number] 5 Angiographic Health Pack Tegaderm 4 x 3M 1 1626W [id number] 111780 [id number] 5 4 (1626W) PLEURX CareFusion 1 [id number] 5 [id number] PERITON drainage catheter ([id number]) Micropuncture VSI VASCULAR 1 [id number] 363443 201024 5 VSI 4FR kit SOLUTIONS AMPLATZ Super [place] 1 [id number] [id number] [id number] 5 [id number] Stiff 75cm Scientific wire ([id number]) 3-0 Vicryl Ethicon 1 [id number] 015267 [id number] 5 Single Pack [id number] PLEURX CareFusion 3 [id number] 022473 7200 [id number] 3 [id number] PROCEDURE GIL [id number] (52-0214) [id number] Signature Audit [place] Stage Time Signature Unsigned Intra-Procedure 07/30/2019 Madan Hager [place] RT 10:30:34 AM [place] RT (R) (CV) 07/30/2019 (R) (CV) 10:31:52 AM Intra-Procedure 07/30/2019 Madan 10:41:17 AM [place]ield RT (R) (CV) [facility] [address] [id number]
[2019-07-30 06:58] LABS: HEMATOCRIT 32.8 % (36.0-48.0); HEMOGLOBIN 11.3 g/dL (12-16); LYMPHOCYTES 11.4 % (15-50); MCH 31.5 pg (26.0-34.0); MCHC 34.5 g/dL (31.0-37.0); MCV 91.4 fL (80.0-100.0); MEAN PLATELET VOLUME 8.9 fL (7.4-10.4); PLATELET COUNT 166 10x3/uL (130-400); RBC 3.59 10x6/uL (4.00-5.40); RDW 16.9 % (11.5-14.5)
[2019-07-30 07:11] LABS: APTT 38.1 SECONDS (22.8-39.4); INR 1.53 (0.85-1.17); PROTIME 18.2 SECONDS (11.6-15.0)
[2019-07-30 07:13] LABS: ALBUMIN 2.1 g/dL (3.4-5.0); ANION GAP 9.3 mmol/L (8-16); BILIRUBIN - TOTAL 3.57 mg/dL (0.2-1.3); CALCIUM 8.2 mg/dL (8.5-10.1); CARBON DIOXIDE 27.7 mmol/L (21.0-32.0); CREATININE - SERUM 1.1 mg/dL (0.6-1.3); PROTEIN - SERUM 6.5 g/dL (6.4-8.2)
[2019-07-30 07:51] VITALS: BP 111/61; Ht 162.6 cm; Wt 68.2 kg
--- NOTE | 2019-07-30 11:57 | NUR ---
1048 PT'S VITAL SIGNS ARE BEING RECORDED AND DOCUMENTED ON THE POST PROCEDURE FORM AND IS LOCATED IN THE PAPER CHART. 1100 PT'S DAUGHTER IS BEING EDUCATED BY THE CAST SHELL GRINDER ON THE CARE OF THE TUBE AND SUPPLIES NEEDED BY HOSPICE HAVE BEEN GIVEN TO THE DAUGHTER TO TAKE HOME. THE TECH DRAINED 1000CC FLUIDS FROM TUBE AT BEDSIDE AND THE PT'S DAUGHTER WAS SHOWN HOW THIS IS DONE.
--- NOTE | 2019-07-30 16:08 | NUR ---
1230 IV DC'D. CATHETER TIP INTACT. NO BLEEDING AT SITE AFTER HOLDING PRESSURE. BANDAID APPLIED. 1240 ASSISTED PT TO BATHROOM. PT ABLE TO VOID WITHOUT DIFFICULTY. PT DRESSED WITH UP IN BATHROOM WITH THE ASSISTANCE OF HER DAUGHTER. 1250 PT READY FOR DISCHARGE AND IN WHEELCHAIR FOR TRANSPORTATION.
== END 2019-07-30 12:50 | disposition home or self-care (01) ==
LOC: D.SP 06:35 → D.RAD 09:00 → D.SP 09:00
PROVIDERS: General Practice; ATTEND Internal Medicine Gastroenterology
DX: R14.0 Abdominal distension (gaseous) (principal); R60.9 Edema, unspecified; R19.7 Diarrhea, unspecified; R18.8 Other ascites; K74.60 Unspecified cirrhosis of liver